=== PATIENT | male | born 1940 | race Caucasian/White ===

== ENCOUNTER 2017-03-16 18:58 | Emergency (ER) | payer MEDICARE ==
[~2017-03-16] VITALS: Ht 185.4 cm; Wt 94.3 kg
[~2017-03-16 18:58] MED LIST: AC325T PO; ACET650S15 PR; ASP81CT PO; AZIT250T81 PO; CARV3.12 PO; CEFU500T5 PO; CLOP75TA PO; ENAL10TA PO; HYDR1TAB PO; IBP800T PO; LISI-556 PO; LISI2.5T PO; LOVA40TA2 PO; PRD20T PO; SPRN25T PO
--- NOTE | 2017-03-16 19:08 | ED Fall/Injury ---
General Chief Complaint: Trauma-Non Activation Stated Complaint: DIZZINESS Nursing Triage Note: see trauma Source: patient, RN notes reviewed, EMS notes reviewed Exam Limitations: no limitations History of Present Illness Time seen by provider: 19:08 Initial Comments Actually denies dizziness to me and states he just got his feet tangled up getting up from a chair and wound up falling. Apparently landed on his right hip. Didn't want to come in but family forced him to. States he didn't hit his head and has no head or neck pain. Occurred: this evening Severity: mild Injuries/Pain Location: lower extremity (right hip) Context: tripped Loss of Consciousness: no loss of consciousness Modifying Factors: Improves With Other (none) Associated Symptoms (Fall): Denies Symptoms Allergies and Home Medications Allergies Coded Allergies: NKANo Known Allergies (Unverified Allergy, Mild, 02/11/10) Home Medications Aspirin 81 Mg Chew, 81 MG PO DAILY, (Reported) Carvedilol 3.125 Mg Tablet, 3.125 MG PO BID, (Reported) Lisinopril 5 Mg Tablet, 5 MG PO DAILY, (Reported) LAST FILLED 03/01/16 #180 ; PATIENT TO BE TAKING 2 (5 MG) TABLETS DAILY PER BOTTLE INSTRUCTIONS Meloxicam 7.5 Mg Tablet, 7.5 MG PO DAILY PRN, #30 Ref 0 Prescribed by: DEEPALI TIM on 03/16/171940 Constitutional: see HPI Musculoskeletal: see HPI, other (mild right hip pain) All Other Systems Reviewed Negative Unless Noted: Yes (Negative excepted noted.) Past Axqanfl-Ynyjmc-Indhjm Hx Patient Social History Alcohol Use: Denies Use Recreational Drug Use: No Smoking Status: Former Smoker Type Used: Smokeless Tobacco Recent Foreign Travel: No Contact w/Someone Who Travel: No Recent Infectious Disease Expo: No Recent Hopitalizations: No Immunizations Up To Date Tetanus Booster (TDap): Less than 5yrs Seasonal Allergies Seasonal Allergies: No Surgeries HX Surgeries: Yes (metal plate in head) Surgeries: Coronary Stent, Orthopedic, Pacemaker Respiratory Hx Respiratory Disorders: Yes Respiratory Disorders: Asthma, Chronic Bronchitis Cardiovascular Hx Cardiac Disorders: Yes (pacemaker) Cardiac Disorders: Coronary Artery Disease, Heart Attack, Hypertension Neurological Hx Neurological Disorders: Yes Neurological Disorders: Traumatic Brain Injury Reproductive System Hx Reproductive Disorders: No Genitourinary Hx Genitourinary Disorders: No Gastrointestinal Hx Gastrointestinal Disorders: No Musculoskeletal Hx Musculoskeletal Disorders: Yes (cellulitis to ced feet) Endocrine Hx Endocrine Disorders: Yes ("BORDERLINE DIABETIC") HEENT HX ENT Disorders: Yes Loss of Vision: Left Cancer Hx Cancer: No Psychosocial Hx Psychiatric Problems: No Integumentary HX Skin/Integumentary Disorder: No Blood Transfusions Hx Blood Disorders: No Family Medical History Significant Family History: No Pertinent Family Hx Family Medial History: Diabetes mellitus DAUGHTER FH: COPD (chronic obstructive pulmonary disease) DAUGHTER FH: alcohol abuse DAUGHTER SON Hypertension DAUGHTER Seizure disorder DAUGHTER Substance abuse DAUGHTER SON Physical Exam Vital Signs Vital Sign - Last 12Hours 03/16/17 19:01 Temp 98.2 Pulse 58 Resp 20 B/P (MAP) 133/87 Pulse Ox 98 O2 Delivery Room Air Capillary Refill : Less Than 3 Seconds General Appearance: WD/WN, no apparent distress HEENT: normal ENT inspection Neck: normal inspection Cardiovascular: regular rate, rhythm, bradycardia Respiratory: no respiratory distress Rectal: deferred Back: normal inspection Extremities: other (mild palpable tenderness over patient's right greater trochanter; no RLE shortening or external rotation.) Neurologic/Psychiatric: no motor/sensory deficits, alert, normal mood/affect, oriented x 3 Skin: warm/dry Progress/Results/Core Measures Results/Orders My Orders Orders - DEEPALI TIM DO Hip, Right, 2 Views (03/16/17 19:05) Pelvis (03/16/17 19:05) Vital Signs/I&O Vital Sign - Last 12Hours 03/16/17 03/16/17 19:01 20:09 Temp 98.2 Pulse 58 56 Resp 20 16 B/P (MAP) 133/87 Pulse Ox 98 95 O2 Delivery Room Air Blood Pressure Mean: 102 Diagnostic Imaging Diagonstic Imaging: Xray Plain Films/CT/US/NM/MRI: pelvis (nothing acute per radiologist), hip Departure Impression Impression: Primary Impression: Contusion, hip Additional Impression: Fall Disposition: 01 HOME, SELF-CARE Condition: Stable Departure-Patient Inst. Decision time for Depature: 19:39 Referrals: [facility] (PCP/Family) Primary Care Physician Patient Instructions: Contusion (DC) Scripts Meloxicam (Mobic) 7.5 Mg Tablet 7.5 MG PO DAILY PRN for hip pain, #30 TAB 0 Refills Prov: DEEPALI TIM DO 03/16/17 DEEPALI TIM DO Mar 16, 2017 19:08
--- NOTE | 2017-03-16 19:21 | Diagnostic Imaging Report ---
INDICATION: Fall. Right hip pain. FINDINGS: Pelvis is intact with mild degenerative change at the SI joint. Femoral heads are in normal articulation bilaterally. Joint spaces show minimal degenerative disease. There are no fractures demonstrated. Pubic rami appear normal. IMPRESSION: Mild degenerative changes with no acute abnormalities. Dictated by: Dictated on workstation # [id number]
--- NOTE | 2017-03-16 19:22 | Diagnostic Imaging Report ---
INDICATION: Fall with right hip pain. EXAMINATION: Two views of the right hip were obtained. FINDINGS: Femoral head is in normal articulation with the acetabulum. Articulating surfaces are smooth. Joint spaces are well preserved. Mild subcortical cystic change noted along the acetabulum. No fractures. IMPRESSION: Mild degenerative changes with no acute abnormalities. Dictated by: Dictated on workstation # [id number]
[2017-03-16] MEDS ORDERED: MELO-170 PO (19:41)
[2017-03-16 20:09] VITALS: BP 128/62
== END 2017-03-16 20:09 | disposition home or self-care (01) ==
LOC: EDUNIT# 18:58 → ER 18:59
DX: S70.01XA Contusion of right hip, initial encounter (principal); R42 Dizziness and giddiness; I10 Essential (primary) hypertension; I25.10 Atherosclerotic heart disease of native coronary artery without angina pectoris; Z79.82 Long term (current) use of aspirin; Z79.899 Other long term (current) drug therapy; Z87.891 Personal history of nicotine dependence; Z95.5 Presence of coronary angioplasty implant and graft; Z95.0 Presence of cardiac pacemaker; W01.0XXA Fall on same level from slipping, tripping and stumbling without subsequent striking against object, initial encounter; Y92.009 Unspecified place in unspecified non-institutional (private) residence as the place of occurrence of the external cause; Y99.8 Other external cause status
CPT/HCPCS: 72170; 73502; 99283

== ENCOUNTER 2018-02-01 00:03 | Observation (INO) | payer MEDICARE ==
[~2018-02-01] VITALS: Ht 185.4 cm; Wt 78.8 kg
[2018-02-01] VITALS (7 sets, daily range): BP systolic 92–126; BP diastolic 53–72
[~2018-02-01 00:03] MED LIST changes: +MELO-170 PO
[2018-02-01] MEDS ORDERED: CLOPIDOGREL 300 MG (PLAVIX) TABLET PO STA (00:28)
[2018-02-01] MEDS ORDERED: ASPIRIN 81 MG CHEW (CHILDREN'S ASA) PO STA (00:28)
--- NOTE | 2018-02-01 00:36 | ED Neurological Problem ---
General Chief Complaint: Trauma-Non Activation Stated Complaint: CAN'T WALK,LEFT LEG WON'T MOVE,FALL Nursing Triage Note: FALL FROM SHOWER CHAIR. Nursing Sepsis Screen: No Definite Risk Source: patient, family Exam Limitations: clinical condition History of Present Illness Date Seen by Provider: Feb 01, 2018 Time Seen by Provider: 00:27 Initial Comments Patient presents to the ER with family and a chief complaint that he has had left-sided weakness this since 9:00 this morning. He is not had any energy to get up and walk although he at baseline typically walks using a 4 post cane. He does not have a history of stroke but he does have a pacemaker. He has a metal plate in his head from trauma many years ago. The family had troubles with him in the shower chair tonight and he fell off the shower chair but says he is not having any pain anywhere did not strike his head and did not lose consciousness. He is on aspirin and some other heart medicine twice a day. Family also notes his left eye has some mattering like an infection. Today's for stated notice that. Nursing reports the patient was able to transfer from the wheelchair to bed with only minimal assistance. Family does not endorse any facial asymmetry however they do feel that his speech is a little bit off his baseline. He has dementia and lives with his nephew and niece. Location Injury Occurred: HOME Allergies and Home Medications Allergies Coded Allergies: Shireen Known Allergies (Unverified Allergy, Mild, 02/11/10) Home Medications Aspirin 81 Mg Chew, 81 MG PO DAILY, (Reported) Carvedilol 3.125 Mg Tablet, 3.125 MG PO BID, (Reported) Lisinopril 5 Mg Tablet, 5 MG PO DAILY, (Reported) LAST FILLED 03/01/16 #180 ; PATIENT TO BE TAKING 2 (5 MG) TABLETS DAILY PER BOTTLE INSTRUCTIONS Meloxicam 7.5 Mg Tablet, 7.5 MG PO DAILY PRN Prescribed by: DEEPALI TIM on 03/16/171940 Patient Home Medication List Home Medication List Reviewed: Yes Constitutional: No chills, No diaphoresis, No fever, No malaise Eyes: Denies Blindness, Denies Blurred Vision, Drainage (left eye), Denies Foreign Body Sensation, Denies Inflammation, Denies Pain, Denies Photophobia Ears, Nose, Mouth, Throat: denies ear pain, denies ear discharge Respiratory: cough, No phlegm, No short of breath, No wheezing Cardiovascular: No chest pain, edema (at baseline), No Hx of Intervention, No palpitations, No syncope, No vascular heart diseas Gastrointestinal: No abdominal pain, No constipation, No diarrhea, No nausea Genitourinary: No discharge, No dysuria Musculoskeletal: No back pain, No joint pain Skin: No pruritus, No rash Psychiatric/Neurological: Cognitive Dysfunction (dementia), Denies Headache, Denies Numbness Past Lezojsg-Avzhen-Kadogw Hx Patient Social History Alcohol Use: Denies Use Recreational Drug Use: No Smoking Status: Former Smoker Type Used: Smokeless Tobacco Former Smoker, Quit: Sep 11, 1996 2nd Hand Smoke Exposure: Yes Recent Foreign Travel: No Contact w/Someone Who Travel: No Recent Infectious Disease Expo: No Recent Hopitalizations: No Immunizations Up To Date Tetanus Booster (TDap): Less than 5yrs Seasonal Allergies Seasonal Allergies: No Surgeries History of Surgeries: Yes (metal plate in head) Surgeries: Coronary Stent, Orthopedic, Pacemaker Respiratory History of Respiratory Disorde: Yes Respiratory Disorders: Asthma, Chronic Bronchitis Cardiovascular History of Cardiac Disorders: Yes (pacemaker) Cardiac Disorders: Coronary Artery Disease, Heart Attack, Hypertension Neurological History of Neurological Disord: Yes Neurological Disorders: Traumatic Brain Injury Reproductive System Hx Reproductive Disorders: No Genitourinary History of Genitourinary Disor: No Gastrointestinal History of Gastrointestinal Di: No Musculoskeletal History of Musculoskeletal Dis: Yes (cellulitis to ced feet) Musculoskeletal Disorders: Arthritis Endocrine History of Endocrine Disorders: No HEENT History of HEENT Disorders: No Loss of Vision: Left Cancer History of Cancer: No Psychosocial History of Psychiatric Problem: No Integumentary History of Skin or Integumenta: No Blood Transfusions History of Blood Disorders: No Family Medical History Significant Family History: No Pertinent Family Hx Family Medial History: Diabetes mellitus DAUGHTER FH: COPD (chronic obstructive pulmonary disease) DAUGHTER FH: alcohol abuse DAUGHTER SON Hypertension DAUGHTER Seizure disorder DAUGHTER Substance abuse DAUGHTER SON Physical Exam Vital Signs Vital Signs - First Documented 02/01/18 00:19 Temp 98.8 Pulse 83 Resp 16 B/P (MAP) 114/78 (90) Pulse Ox 93 O2 Delivery Room Air Capillary Refill : Less Than 3 Seconds General Appearance: WD/WN, no apparent distress HEENT: PERRL/EOMI, TMs normal, pharynx normal (oral mucosa is moist. Edentulous ), other (mild conjunctival injection and left eye mattering) Neck: non-tender, full range of motion, supple, normal inspection Respiratory: chest non-tender, lungs clear, normal breath sounds, no respiratory distress, no accessory muscle use Cardiovascular: normal peripheral pulses, regular rate, rhythm, other ( bilateral lower extremities with 1+ pitting edema) Peripheral Pulses: 2+ Radial Pulses (R), 2+ Radial Pulses (L) Gastrointestinal: normal bowel sounds, non tender, soft, no organomegaly Back: normal inspection, no vertebral tenderness Extremities: normal range of motion, non-tender, normal capillary refill, pedal edema Neurologic/Psychiatric: alert, normal mood/affect, 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, No facial droop, motor weakness (left lower leg has 4 out of 5 motor strength; left upper extremity symmetric with right upper extremity 5 out of 5 motor strength), No sensory deficit, other (oriented to person and place) Crainal Nerves: normal hearing, PERRL, abnormal speech (very subtle slurring), No facial asymmetry, No facial droop, No facial weakness Coordination/Gait: No ABN nose to finger (R), ABN nose to finger (L) Motor/Sensory: no sensory deficit, no pronator drift Skin: normal color, warm/dry Stroke Onset of Symptoms Date of Onset of Symptoms: Feb 01, 2018 Time of Symptom Onset: 09:00 Onset of Symptoms: Yes Symptoms onset unknown: No NIH Stroke Scale Assessment Select: Initial Level of Consciousness: 0=Alert (0), Level of Consciousness- Questions: 1=Answers one question baseline dementia. (1), LOC Commands: 0= Performs both tasks (0), Gaze: Normal (0), Visual Garcia: 0=No visual loss (0), Facial Movement (Facial Paresis): 0=Normal symmetrical mnt (0), Motor Function- Arms Right: 0=No drift (0), Motor Function-Arms Left: 0=No drift (0), Motor Function-Legs Right: 0=No drift (0), Motor Function-Legs Left: 0=No drift (0), Limb Ataxia: 0=Absent (0), Sensory: 0=Normal:no loss (0), Best Language: 0=No aphasia (0), Dysarthria: 1=Mild to moderate loss (1), Extinction & Inattention: 0=No abnormality (0), Total: 2 Stroke Thrombolytic Exclusion Age 18 or Over: Yes Acute intenal hemorrhage: No History of CVA: No Uncontrolled Coagulation Defec: No Intracranial Hemorrhage: No Severe Hypertension: No GI or Bleed: No Subarachnoid Hemorrhage: No Intracranial Neoplasm/Aneurysm: No Oral Anticoagulants: No Surgery or Trauma: No Puncture of Non-Compressible V: No Recent CPR: No Diabetic Hemorrhagic Retinopat: No Organ Biopsy: No Recent Obstetric Delivery: No Glucose: No Significant Hepatic Dysfunctio: No NIH Stoke Scale >22: No Bacterial Endocarditis: No Pericarditis: No Improving Symptoms: No Platelets: No TPA Contraindication: Yes IV - TPa Received IV - TPa Procedure Performed?: No Progress/Results/Core Measures Results/Orders Lab Results Laboratory Tests Test 02/01/18 00:35 02/01/18 00:55 02/01/18 01:10 Range/Units White Blood Count 8.2 4.3-11.0 10^3/uL Red Blood Count 4.33 L 4.35-5.85 10^6/uL Hemoglobin 14.2 13.3-17.7 G/DL Hematocrit 41 40-54 % Mean Corpuscular Volume 94 80-99 FL Mean Corpuscular Hemoglobin 33 25-34 PG Mean Corpuscular Hemoglobin Concent 35 32-36 G/DL Red Cell Distribution Width 12.7 10.0-14.5 % Platelet Count 128 L 130-400 10^3/uL Mean Platelet Volume 11.7 H 7.4-10.4 FL Neutrophils (%) (Auto) 67 42-75 % Lymphocytes (%) (Auto) 19 12-44 % Monocytes (%) (Auto) 13 H 0-12 % Eosinophils (%) (Auto) 2 0-10 % Basophils (%) (Auto) 0 0-10 % Neutrophils # (Auto) 5.4 1.8-7.8 X 10^3 Lymphocytes # (Auto) 1.5 1.0-4.0 X 10^3 Monocytes # (Auto) 1.0 0.0-1.0 X 10^3 Eosinophils # (Auto) 0.1 0.0-0.3 10^3/uL Basophils # (Auto) 0.0 0.0-0.1 10^3/uL Prothrombin Time 14.3 12.2-14.7 SEC INR Comment 1.1 0.8-1.4 Activated Partial Thromboplast Time 32 24-35 SEC D-Dimer 0.96 H 0.00-0.49 UG/ML Sodium Level 132 L 135-145 MMOL/L Potassium Level 3.8 3.6-5.0 MMOL/L Chloride Level 102 98-107 MMOL/L Carbon Dioxide Level 21 21-32 MMOL/L Anion Gap 9 5-14 MMOL/L Blood Urea Nitrogen 23 H 7-18 MG/DL Creatinine 2.08 H 0.60-1.30 MG/DL Estimat Glomerular Filtration Rate 31 BUN/Creatinine Ratio 11 Glucose Level 106 H 70-105 MG/DL Calcium Level 8.8 8.5-10.1 MG/DL Magnesium Level 1.9 1.8-2.4 MG/DL Total Bilirubin 1.3 H 0.1-1.0 MG/DL Aspartate Amino Transf (AST/SGOT) 23 5-34 U/L Alanine Aminotransferase (ALT/SGPT) 17 0-55 U/L Alkaline Phosphatase 114 40-136 U/L Troponin I < 0.30 <0.30 NG/ML B-Type Natriuretic Peptide 213.3 H <100.0 PG/ML Total Protein 6.6 6.4-8.2 GM/DL Albumin 3.6 3.2-4.5 GM/DL Glucometer 97 70-110 MG/DL Urine Color ANTHONY H Urine Clarity CLEAR Urine pH 6 5-9 Urine Specific Hatch 1.020 1.016-1.022 Urine Protein 2+ H NEGATIVE Urine Glucose (UA) 2+ H NEGATIVE Urine Ketones NEGATIVE NEGATIVE Urine Nitrite NEGATIVE NEGATIVE Urine Bilirubin NEGATIVE NEGATIVE Urine Urobilinogen 1 NORMAL MG/DL Urine Leukocyte Esterase 1+ H NEGATIVE Urine RBC (Auto) 2+ H NEGATIVE Urine RBC 2-5 H /HPF Urine WBC RARE /HPF Urine Squamous Epithelial Cells 2-5 /HPF Urine Crystals NONE /LPF Urine Bacteria TRACE /HPF Urine Casts NONE /LPF Urine Mucus SMALL H /LPF Urine Culture Indicated NO My Orders Orders - ORA LANCE Cbc With Automated Diff (02/01/18 00:28) Protime With Inr (02/01/18 00:28) Partial Thromboplastin Time (02/01/18 00:28) Comprehensive Metabolic Panel (02/01/18 00:28) Fibrin Degradation Products (02/01/18) Troponin I (02/01/18) Ua Culture If Indicated (02/01/18) Chest 1 View, Ap/Pa Only (02/01/18) Ekg Tracing (02/01/18) Saline Lock/Iv-Start (02/01/18) Saline Lock/Iv-Start (02/01/18) Vital Signs Stroke Patient Q15M (02/01/18) Ct Head Wo-R/O Stroke (02/01/18) O2 (02/01/18) Intake & Output 06,14,22 (02/01/18) Aspirin Chewable Tablet (Baby Aspirin Ch (02/01/18) Clopidogrel Tablet (Plavix Tablet) (02/01/18) Monitor-Rhythm Ecg Trace Only (02/01/18) Dysphagia Screening Tool (02/01/18) BNP (02/01/18) Magnesium (02/01/18) Vital Signs/I&O Vital Sign - Last 12Hours 02/01/18 02/01/18 02/01/18 00:19 00:56 01:19 Temp 98.8 Pulse 83 74 Resp 16 24 B/P (MAP) 114/78 (90) 126/72 Pulse Ox 93 93 96 O2 Delivery Room Air Room Air Blood Pressure Mean: 90 Progress Note : Time: 00:43 Progress Note NIH score of 2 however 1 point is given for his not knowing month and at baseline he probably did not answer this question according to family. The 1 point remaining was given for the family feels he has some slurring of speech. He does have some cerebellar symptoms with his finger to nose being very difficult of the left arm. We'll get a CT scan however he is well outside the window for TPA. His eye mattering will need a topical antibiotic. He could probably stay overnight there is no intervention to be done such as clot retrieval with his last well-known time being almost 14 hours ago. We'll talk about medical management as well as physical therapy. Because of the plate in his head an MRI is not advisable. ECG Initial ECG Impression Date: Feb 01, 2018 Initial ECG Impression Time: 00:38 Initial ECG Rate: 79 Initial ECG Rhythm: Normal Sinus Initial ECG Intervals: Normal Initial ECG Impression: Nonspecific Changes (PACs; old lateral infarct) Initial ECG Comparisson: No Previous ECG Available Comment No ST segment elevation or depression. Diagnostic Imaging Diagonstic Imaging: Xray Plain Films/CT/US/NM/MRI: chest Comments Flattened diaphragms. No definite infiltrate. No pleural effusion. Reviewed: Reviewed by Me Diagonstic Imaging: CT Plain Films/CT/US/NM/MRI: head Comments Stat read no CT evidence of an acute intracranial process. Chronic changes that are stable from prior CT August 2016. Motion artifact. Reviewed: Reviewed by Me Departure Impression Impression: Primary Impression: TIA (transient ischemic attack) Qualified Codes: G45.9 - Transient cerebral ischemic attack, unspecified Additional Impression: Conjunctivitis Qualified Codes: H10.32 - Unspecified acute conjunctivitis, left eye Disposition: ADMITTED INPATIENT Condition: Stable Admissions Decision to Admit Reason: Admit from ER (General) Decision to Admit/Date: Feb 01, 2018 Time/Decision to Admit Time: 00:47 Departure-Patient Inst. Referrals: [facility] (PCP/Family) Primary Care Physician ORA LANCE Feb 01, 2018 00:36
[2018-02-01 00:55] LABS: BASOPHILS % (AUTO) 0 % (0-10); EOSINOPHILS # (AUTO) 0.1 10^3/uL (0.0-0.3); EOSINOPHILS % (AUTO) 2 % (0-10); HEMATOCRIT 41 % (40-54); HEMOGLOBIN 14.2 G/DL (13.3-17.7); LYMPHOCYTES # (AUTO) 1.5 X 10^3 (1.0-4.0); LYMPHOCYTES % (AUTO) 19 % (12-44); MEAN CORPUSCULAR HEMOGLOBIN 33 PG (25-34); MEAN CORPUSCULAR HGB CONC 35 G/DL (32-36); MEAN CORPUSCULAR VOLUME 94 FL (80-99); MEAN PLATELET VOLUME 11.7 FL (7.4-10.4); MONOCYTES % (AUTO) 13 % (0-12); NEUTROPHILS # (AUTO) 5.4 X 10^3 (1.8-7.8); NEUTROPHILS % (AUTO) 67 % (42-75); PLATELET COUNT 128 10^3/uL (130-400); RED BLOOD COUNT 4.33 10^6/uL (4.35-5.85); RED CELL DISTRIBUTION WIDTH 12.7 % (10.0-14.5); WHITE BLOOD COUNT 8.2 10^3/uL (4.3-11.0)
[2018-02-01 01:14] LABS: INR 1.1 (0.8-1.4); PROTHROMBIN TIME PATIENT 14.3 SEC (12.2-14.7)
[2018-02-01 01:17] LABS: FIBRIN DEGRADATION PRODUCTS 0.96 UG/ML (0.00-0.49)
[2018-02-01 01:22] LABS: ALANINE AMINOTRANSFERASE 17 U/L (0-55); ALBUMIN 3.6 GM/DL (3.2-4.5); ALKALINE PHOSPHATASE 114 U/L (40-136); BILIRUBIN,TOTAL 1.3 MG/DL (0.1-1.0); BUN/CREATININE RATIO 11; CALCIUM 8.8 MG/DL (8.5-10.1); CARBON DIOXIDE 21 MMOL/L (21-32); CHLORIDE 102 MMOL/L (98-107); CREATININE SERUM 2.08 MG/DL (0.60-1.30); GFR ESTIMATED 31; GLUCOSE 106 MG/DL (70-105); MAGNESIUM 1.9 MG/DL (1.8-2.4); POTASSIUM 3.8 MMOL/L (3.6-5.0); SODIUM 132 MMOL/L (135-145); TOTAL PROTEIN 6.6 GM/DL (6.4-8.2)
[2018-02-01 01:26] LABS: BILIRUBIN,URINE NEGATIVE (NEGATIVE); CLARITY,URINE CLEAR; COLOR,URINE AMBER; GLUCOSE, URINE (UA) 2+ (NEGATIVE); KETONES,URINE NEGATIVE (NEGATIVE); LEUKOCYTE ESTERASE ,URINE 1+ (NEGATIVE); NITRITE,URINE NEGATIVE (NEGATIVE); PH,URINE 6 (5-9); PROTEIN,URINE 2+ (NEGATIVE); UROBILINOGEN,URINE 1 MG/DL (NORMAL)
[2018-02-01 01:41] LABS: BACTERIA,URINE TRACE /HPF; WBC,URINE RARE /HPF
[2018-02-01] MEDS ORDERED: ONDANSETRON 4 MG/2 ML (SDV) Z0FRAN IV PRN (03:00)
[2018-02-01] MEDS ORDERED: ACETAMINOPHEN 500 MG TAB (TYLENOL) PO PRN (03:00)
--- NOTE | 2018-02-01 06:39 | Diagnostic Imaging Report ---
Exam: CT head without contrast. DATE: 02/01/2018. COMPARISON: 08/28/2016. INDICATION: 77-year-old male, left-sided weakness, cough. FINDINGS: There are postoperative changes of the right frontal bone. There is expansion and loss of cortical bone in the region of the left frontal sinus with complete opacification of the left frontal sinus which is nonspecific. This is an unchanged appearance compared to prior CT head 08/28/2016. There is also complete opacification in left ethmoidal air cells with thinning of the overlying bone. There are changes of encephalomalacia in the left anterior and inferior aspect of the frontal lobe and in the right cerebellar hemisphere. Changes of encephalomalacia in the right cerebellar hemisphere are an interval change since prior CT. There is proportional prominence of the ventricles and CSF spaces compatible with moderate cerebral volume loss. There is no identified abnormal extra-axial fluid collection. There are areas of very low attenuation in the right frontal lobe which may relate to encephalomalacia with adjacent low attenuation in the white matter likely reflecting prominent gliosis. There are areas of low attenuation in general in the periventricular and subcortical white matter which most likely reflect changes of chronic small vessel ischemic disease. There is no evidence of acute intracranial hemorrhage. There is no mass effect or midline shift. IMPRESSION: 1. No CT apparent interval acute intracranial abnormality. 2. Changes of encephalomalacia in the left frontal lobe, right frontal lobe, and right cerebellum. Encephalomalacia in the cerebellum is an interval finding since 08/28/2016. 3. Moderate cerebral volume loss with changes of chronic small vessel ischemic disease. 4. Redemonstrated opacification within the left frontal sinus and left ethmoidal air cells which is expansile and is associated with cortical bone thinning and bone loss. Dictated by: Dictated on workstation # [id number]
[2018-02-01 06:47] LABS: BASOPHILS % (AUTO) 0 % (0-10); EOSINOPHILS # (AUTO) 0.1 10^3/uL (0.0-0.3); EOSINOPHILS % (AUTO) 1 % (0-10); HEMATOCRIT 39 % (40-54); HEMOGLOBIN 13.7 G/DL (13.3-17.7); LYMPHOCYTES # (AUTO) 2.2 X 10^3 (1.0-4.0); LYMPHOCYTES % (AUTO) 30 % (12-44); MEAN CORPUSCULAR HEMOGLOBIN 33 PG (25-34); MEAN CORPUSCULAR HGB CONC 35 G/DL (32-36); MEAN CORPUSCULAR VOLUME 94 FL (80-99); MEAN PLATELET VOLUME 11.7 FL (7.4-10.4); MONOCYTES # (AUTO) 1.1 X 10^3 (0.0-1.0); MONOCYTES % (AUTO) 15 % (0-12); NEUTROPHILS # (AUTO) 3.9 X 10^3 (1.8-7.8); NEUTROPHILS % (AUTO) 53 % (42-75); PLATELET COUNT 113 10^3/uL (130-400); RED BLOOD COUNT 4.14 10^6/uL (4.35-5.85); RED CELL DISTRIBUTION WIDTH 12.6 % (10.0-14.5); WHITE BLOOD COUNT 7.2 10^3/uL (4.3-11.0)
[2018-02-01 06:59] LABS: CALCIUM 8.7 MG/DL (8.5-10.1); CREATININE SERUM 2.05 MG/DL (0.60-1.30); POTASSIUM 3.5 MMOL/L (3.6-5.0)
--- NOTE | 2018-02-01 07:35 | Diagnostic Imaging Report ---
EXAMINATION: Chest radiograph, portable AP view. DATE: 02/01/2018 at 0108 hours. INDICATION: 77-year-old male, left-sided weakness, cough. COMPARISON: 08/28/2016. FINDINGS: There is a left-sided cardiac assist device with lead. Stable overall appearance of the cardiomediastinal silhouette. There is no identified pneumothorax. There is no large pleural effusion. There is hazy opacification in the right upper lobe. There are bilateral interstitial opacities. Overall aeration of the lungs appears fairly similar to the comparison exam although the right upper lobe opacities do appear slightly more prominent. IMPRESSION: 1. Hazy opacities projecting over the right upper lobe which appear slightly more prominent since comparison exam and potentially could relate to infiltrate. This may be more optimally assessed with CT. 2. Bilateral predominantly interstitial opacities which are unchanged since comparison exam and most likely reflect chronic lung changes. Dictated by: Dictated on workstation # [id number]
[2018-02-01] MEDS: ASPIRIN 81 MG CHEW (CHILDREN'S ASA) PO SCH (08:27)
[2018-02-01] MEDS ORDERED: ASPI-983 PO (09:54)
[2018-02-01] MEDS ORDERED: CARV3.122 PO (09:54)
--- NOTE | 2018-02-01 10:47 | Physical Therapy Evaluation ---
PT Evaluation-General Medical Diagnosis Admission Date Feb 01, 2018 at 02:00 Medical Diagnosis: TIA Onset Date: Feb 01, 2018 Therapy Diagnosis Therapy Diagnosis: impaired gait and balance Height/Weight Height (Feet): 6 Height (Inches): 1.00 Weight (Pounds): 173 Weight (Ounces): 12.8 Precautions Precautions/Isolations: Fall Prevention, Standard Precautions Weight Bear Status Weight Bearing/Tolerated Weight Bearing/Tolerated Referral Physician: Betsy Alanis MD Reason for Referral: Evaluation/Treatment Medical History Pertinent Medical History: Fractures, HTN, IN, Smoking, TBI Additional Medical History metal plate in head from injury 1975, asthma, bronchitis Reviewed History: Yes Social History Home: Single Level Current Living Status: Children Prior/Core FIM Prior Level of Function Functional [place] Measure 0=Not Assessed/NA 4=Minimal Assistance 1=Total Assistance 5=Supervision or Setup 2=Maximal Assistance 6=Modified [place] 3=Moderate Assistance 7=Complete [place] Bed Mobility: 6 Transfers (B,C,W/C) (FIM): 6 Gait: 6 uses a quad cane, reports frequent falls PT Evaluation-Current Subjective Pt and report that he is not very active at home and has had long standing weakness on the (L). Yesterday he fell off of a shower chair onto the floor. Family brought him to the ER for fear of stroke, noting (L) side weakness and some slurred speech. Imaging does not show signs of acute stroke. Pt admitted for observation. Objective Patient Orientation: Normal For Age Problem Solving: Fair ROM/Strength ROM Upper Extremities WFL ROM Lower Extremities WFL Strength Upper Extremities 4/5 Strength Lower Extremities gross 4/5 (B) with right stronger than the left Sensory Vision: Functional Hearing: Functional Transfers Functional Republic Measure 0=Not Assessed/NA 4=Minimal Assistance 1=Total Assistance 5=Supervision or Setup 2=Maximal Assistance 6=Modified [place] 3=Moderate Assistance 7=Complete [place] Transfers (B, C, W/C) (FIM): 4 Scootin Supine to/from Sit: 5 Sit to/from Stand: 5 needs tactile cuing for sequencing the LEs in and out of bed. Gait Mode of Locomotion: Walk Anticipated Mode of Locomotion: Walk Gait (FIM): 4 Distance (FIM): 3=150 ft Distance: 150 Gait Level of Assist: 4 Gait Persons Needed: 1 Gait Assistive Device: FWW Comments/Gait Description Needs minimal assist to guide the walker around objects. Patient has poor attention to safety surroundings and is at risk when distracted. Balance Sitting Static: Good Sitting Dynamic: Good Standing Static: Fair Standing Dynamic: Fair Assessment/Needs Pt is a fall risk due to old neurological injury affecting coordination and reaction time of the (L) LE. He responded well to verbal and tactile cues. He had poor managment of a FWW. Pt will benefit from further assessment of gait and balance using a quad cane. His reports that he looks almost back to his normal walking abilities. Rehab Potential: Fair PT Short Term Goals Short Term Goals Time Frame: Feb 04, 2018 PT Mcc Goals Mcc Goals PT Carpenter Apprentice Goals Time Frame: Feb 04, 2018 Transfers (B,C,W/C) (FIM): 5 Gait (FIM): 5 Gait distance (FIM): 3=150 ft Distance: 150 Gait Level of Assist: 5 Gait Assistive Device: Cane Small Base Quad PT Plan Problem List Problem List: Activity Tolerance, Balance, Gait Treatment/Plan Treatment Plan: Continue Plan of Care Treatment Plan: Gait, Safety Treatment Duration: Feb 08, 2018 Frequency: 6 times per week Estimated Hrs Per Day: .25 hour per day Patient and/or Family Agrees t: Yes Safety Risks/Education Patient Education: Gait Training, Safety Issues Teaching Recipient: Patient, Family Teaching Methods: Demonstration, Discussion Discharge Recommendations Therapy D/C Recommendations: Home w/ Family Support Barriers to Progress old neurological impairment left side Target Placement home with family support Time/GCodes Time In: 1030 Time Out: 1055 Total Billed Treatment Time: 25 Total Billed Treatment visit, eval moderate complexity 25 min G Codes Necessary: Yes PT/OT Therapy GCodes Therapy Functional Limitation: Physical Therapy Test(s)/Tool used to determine: FIM Functional Limitation-Current Charge Code: MOBCUR Modifier: CJ Functional Limitation-Goal Charge Code: MOBGOAL Modifier: ANGIE JANSEN PT Feb 01, 2018 10:47
--- NOTE | 2018-02-01 15:51 | Consultation-Cardiology ---
HPI-Cardiology Cardiology Consultation: Date of Consultation 02/01/18 Time Seen by Provider: 15:50 Date of Admission Attending Physician Betsy Tian MD Admitting Physician [facility] Consulting Physician ROSA M POOLE MD, MA, FACP, FACC, [facility] [place], CCDS HPI: Chief Complaint: Reason for consultation: H/o CHF 77 yo man who, apparently, was admitted to Dr Tian for eval and treatment of L-sided weakness. He himself does not report any localized weakness. Has gen weakness. Does not provide much history. and a daughter are by his bedside. History is mostly obtained from his daughter He has chronic gen weakness and poor balance and is prone to falls. states he took a soft fall this am. Doesn't know if he was weak on one side. He has chronic bilat leg swelling, more on the R, treated with daytime compression stockings that he has not been using lately. He does not report cp or palp or syncope. Refuses to answer most questions Daughter states that he lives with his granddaughter. It is unclear if his oral intake has been good. He is mostly non ambulatory. Apparently, has not lost much wgt lately. He does not answer if he has a good appetite. says he eats good, but the person they live with sometimes does not cook anything for them. He has chronic body pains and gen weakness Review of Systems-Cardiology Review of Systems Constitutional: weight gain, other (He does not cooperate with a review of systems. Whatever we could learn from him and his fam is described above under HPI) WVS-Isceiq-Jnlqms Hx Patient Social History Alcohol Use: Denies Use Recreational Drug Use: No Smoking Status: Former Smoker Type Used: Smokeless Tobacco 2nd Hand Smoke Exposure: Yes Recent Foreign Travel: No Recent Infectious Disease Expo: No Hospitalization with Isolation: Denies Physical Abuse Screen: No Sexual Abuse: No Immunizations Up To Date Tetanus Booster (TDap): Less than 5yrs Date of Influenza Vaccine: Sep 03, 2017 Past Medical History PMH As described under Assessment. Family Medical History Family History: Diabetes mellitus DAUGHTER FH: COPD (chronic obstructive pulmonary disease) DAUGHTER FH: alcohol abuse DAUGHTER SON Hypertension DAUGHTER Seizure disorder DAUGHTER Substance abuse DAUGHTER SON Allergies and Home Medications Allergies Coded Allergies: NKANo Known Allergies (Unverified Allergy, Mild, 02/11/10) Home Medications Aspirin 81 Mg Tablet., 81 MG PO DAILY, (Reported) Carvedilol 3.125 Mg Tablet, 3.125 MG PO BID, (Reported) Patient Home Medication List Home Medication List Reviewed: Yes Physical Exam-Cardiology Physical Exam Vital Signs/I&O Vital Sign - Last 12Hours 02/01/18 02/01/18 02/01/18 02/01/18 07:00 08:00 09:00 12:00 Temp 98.1 97.4 Pulse 56 70 59 Resp 18 18 B/P (MAP) 122/68 (86) 98/57 (71) Pulse Ox 97 97 91 O2 Delivery Room Air Room Air Room Air 02/01/18 13:00 Pulse 59 Capillary Refill : Less Than 3 Seconds Constitutional: other (Lying hunched over on the L side in the bed. Very uncooperative with exam. Appear somewhat thin and seems to suffer from dementia or poor memory) HEENT: other (He did open eyes after multiple requests; pupils appear round and reactive; there appears to be some entropion of the upper eyelid on the L; jaws appear edentulous, but he doesn't open his mouth for a full exam) Neck: No carotid bruit, carotid pulses are 2 + bilaterally, with good upstrokes Respiratory: No accessory muscle use, other (Lungs appear to have good air entry and are resonant to percussion) Cardiovascular: regular rate-rhythm, S1 and S2, systolic murmur (2/6 UGO at card base) Gastrointestinal: No tender, soft, No guarding, No rebound, audible bowel sounds Extremities: No clubbing, No cyanosis, significant edema (there is bilateral leg edema, somewhat more on R (this is chronic according to the family)) Neurologic/Psychiatric: other (He does not cooperate with a neurlogic exam; does not answer questions of orientation; moves all limbs equally but doesn't cooperate with exam for power or sensations) Skin: No rash on exposed areas, No ulcerations on exposed areas Data Review Labs Laboratory Tests 02/01/18 00:35: White Blood Count 8.2, Red Blood Count 4.33L, Hemoglobin 14.2, Hematocrit 41, Mean Corpuscular Volume 94, Mean Corpuscular Hemoglobin 33, Mean Corpuscular Hemoglobin Concent 35, Red Cell Distribution Width 12.7, Platelet Count 128L, Mean Platelet Volume 11.7H, Neutrophils (%) (Auto) 67, Lymphocytes (%) (Auto) 19 , Monocytes (%) (Auto) 13H, Eosinophils (%) (Auto) 2, Basophils (%) (Auto) 0, Neutrophils # (Auto) 5.4, Lymphocytes # (Auto) 1.5, Monocytes # (Auto) 1.0, Eosinophils # (Auto) 0.1, Basophils # (Auto) 0.0, Prothrombin Time 14.3, INR Comment 1.1, Activated Partial Thromboplast Time 32, D-Dimer 0.96H, Sodium Level 132L, Potassium Level 3.8, Chloride Level 102, Carbon Dioxide Level 21, Anion Gap 9, Blood Urea Nitrogen 23H, Creatinine 2.08H, Estimat Glomerular Filtration Rate 31, BUN/Creatinine Ratio 11, Glucose Level 106H, Calcium Level 8.8, Magnesium Level 1.9, Total Bilirubin 1.3H, Aspartate Amino Transf (AST/SGOT ) 23, Alanine Aminotransferase (ALT/SGPT) 17, Alkaline Phosphatase 114, Troponin I < 0.30, B-Type Natriuretic Peptide 213.3H, Total Protein 6.6, Albumin 3.6 02/01/18 00:55: Glucometer 97 02/01/18 01:10: Urine Color AMBERH, Urine Clarity CLEAR, Urine pH 6, Urine Specific [place] 1.020, Urine Protein 2+H, Urine Glucose (UA) 2+H, Urine Ketones NEGATIVE, Urine Nitrite NEGATIVE, Urine Bilirubin NEGATIVE, Urine Urobilinogen 1, Urine Leukocyte Esterase 1+H, Urine RBC (Auto) 2+H, Urine RBC 2-5H, Urine WBC RARE, Urine Squamous Epithelial Cells 2-5, Urine Crystals NONE, Urine Bacteria TRACE, Urine Casts NONE, Urine Mucus SMALLH, Urine Culture Indicated NO 02/01/18 06:12: White Blood Count 7.2, Red Blood Count 4.14L, Hemoglobin 13.7, Hematocrit 39L, Mean Corpuscular Volume 94, Mean Corpuscular Hemoglobin 33, Mean Corpuscular Hemoglobin Concent 35, Red Cell Distribution Width 12.6, Platelet Count 113L, Mean Platelet Volume 11.7H, Neutrophils (%) (Auto) 53, Lymphocytes (%) (Auto) 30 , Monocytes (%) (Auto) 15H, Eosinophils (%) (Auto) 1, Basophils (%) (Auto) 0, Neutrophils # (Auto) 3.9, Lymphocytes # (Auto) 2.2, Monocytes # (Auto) 1.1H, Eosinophils # (Auto) 0.1, Basophils # (Auto) 0.0, Sodium Level 135, Potassium Level 3.5L, Chloride Level 105, Carbon Dioxide Level 23, Anion Gap 7, Blood Urea Nitrogen 23H, Creatinine 2.05H, Estimat Glomerular Filtration Rate 32, BUN/ Creatinine Ratio 11, Glucose Level 117H, Calcium Level 8.7 Laboratory Tests 02/01/18 00:35 02/01/18 06:12 A/P-Cardiology Assessment/Admission Diagnosis L-sided weakness, being managed by the [facility] [place]. CT head of 02/01/18 did not show apparent interval acute intracranial abnormality; there were changes of encephalomalacia in the left frontal lobe, right frontal lobe, and right cerebellum Coronary disease, history of stent to the left circumflex. Last card cath in [address] Olson: patent LCX stent, LVEF 30%. Last MPI [place] [address] Chapa: anterior and anterolateral fixed perfusion defect with LVEF 40% Ischemic cardiomyopathy with EF 40 percent, last echo in August 2014 showing dilated left ventricle with akinesia of the anterior wall, anterolateral wall, mild MR, mild TR, PA 35 mmHg Chronic systolic CHF, followed by Dr Chapa CKD 4 Not suitable for VIVIENNE-inhibitor or ARB due to CKD-4 Abnormal ECG on 02/01/18: NSR with PACs, evidence of old posterolateral GA, unchanged compared to previous ECGs Chronic bilateral leg swelling, somewhat more on the R, treated with compression stockings in the past, but patient has been noncompliant lately Probable dementia H/o hypertension H/o hyperlipidemia History of permanent pacemaker/ICD, [employer], functioning normally on last interrogation was done in [address] Meneses's H/o tobaccoism H/o mild non-obstructive carotid artery stenosis, followed by Dr Chapa Discussion and Recomendations * We recommend continuation of bb and aspirin * We recommend eval for DVT. 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
--- NOTE | 2018-02-01 21:41 | Diagnostic Imaging Report ---
INDICATION: Patient's legs have been locking up, bilateral lower extremity pain. Stroke versus TIA. FINDINGS: Bilateral lower extremity venous Doppler was obtained with color-flow Doppler, compression, augmentation and grayscale imaging. Exam demonstrates some subcutaneous edema. No DVT is identified. The distal peroneal veins were not seen on either side. The greater saphenous veins are patent. No fluid collections are present. IMPRESSION: There is some subcutaneous edema. No DVT is present. Dictated by: Dictated on workstation # [id number]
[2018-02-02 00:45] VITALS: BP 95/60
[2018-02-02 04:20] VITALS: BP 95/56
--- NOTE | 2018-02-02 07:26 | Diagnostic Imaging Report ---
PROCEDURE: US carotid duplex, bilateral. TECHNIQUE: Multiple real-time grayscale images were obtained over the carotid arteries in various projections, bilaterally. Additional duplex Doppler and color Doppler images were also obtained. INDICATION: CVA versus TIA. FINDINGS: Examination was technically difficult as the patient could not follow commands. There are no focally elevated velocities within either common carotid artery or internal carotid artery. The ICA/CCA ratio is less than one bilaterally. Neither vertebral artery was visualized. IMPRESSION: Mild to moderate bilateral carotid plaque. Spectral analysis however shows no evidence of a hemodynamically significant stenosis within either internal carotid artery. Neither vertebral artery was visualized. Parameters based on the consensus panel Tompkins-Scale and Doppler ultrasound criteria published September 2003, Radiology, Volume 229. DOPPLER (peak systolic velocity M/S Right Left CCA ICA Proximal ICA Mid ICA Distal RATIO ECA VERT Dictated by: Dictated on workstation # [id number]
[2018-02-02 08:00] VITALS: BP 83/53
--- NOTE | 2018-02-02 08:32 | H&P Pediatric ---
HPI Attending Physician Peter Aguilar MD PCP [facility] Consult Date of Admission Feb 01, 2018 at 2:00 am Home Medications Home Medications Reviewed patient Home Medication Reconciliation Form Allergies Coded Allergies: NKANo Known Allergies (Unverified Allergy, Mild, 02/11/10) PMH-Pediatrics Patient Social History Physical Abuse Screen: No Sexual Abuse: No Recent Foreign Travel: No Contact w/other who traveled: No Recent Infectious Disease Expo: No Hospitalization with Isolation: Denies 2nd Hand Smoke Exposure: Yes Immunizations Up To Date Tetanus Booster (TDap): Less than 5yrs Date of Influenza Vaccine: Sep 03, 2017 Seasonal Allergies Seasonal Allergies: No Family Medical History Significant Family History: No Pertinent Family Hx Patient History: Diabetes mellitus DAUGHTER FH: COPD (chronic obstructive pulmonary disease) DAUGHTER FH: alcohol abuse DAUGHTER SON Hypertension DAUGHTER Seizure disorder DAUGHTER Substance abuse DAUGHTER SON Physical Exam-Pediatric Physical Exam Vital Signs Vital Signs - First Documented 02/01/18 00:19 Temp 98.8 Pulse 83 Resp 16 B/P (MAP) 114/78 (90) Pulse Ox 93 O2 Delivery Room Air Capillary Refill : Less Than 3 Seconds PETER AGUILAR MD Feb 02, 2018 8:32 am
--- NOTE | 2018-02-02 08:33 | History & Physicial (CHS) ---
HPI History of Present Illness: 77YO gentleman with a history of systolic CHF, pacemaker, diabetes mellitus type 2 , and dementia presented to ER with family. Patient fell from his shower chair on night of admission. Per Dr Carrion's history (no family available while I was present), the family stated he has had increasing debility in lance past few days. There was concern that he had left sided weakness the day of admission, which played into why they brought him in to ER. There was no report of sudden onset weakness, and the patient himself is disoriented to time and place so that history is unreliable. Per chart review, he was seen in November by Silva Luque, his LINE UP WORKER. He had not seen a garment folder in [address] years ([address] Chapa), and a new consult was placed, but the patient has not yet seen him (we have no new records), and Dr Chapa's office is usually quite reliable in letting us know patients have been there). His a1c at the time was 5.x % showing control of the diabetes. He is scheduled for a follow up on February 11 labeled as "concerns." Source: RN/MD Exam Limitations: clinical condition Date seen by provider: Feb 01, 2018 Time Seen by Provider: 09:30 Attending Physician Peter Tian MD [facility] Date of Admission Feb 01, 2018 at 2:00 am Home Medications Home Medications Reviewed patient Home Medication Reconciliation Form Allergies Coded Allergies: NKANo Known Allergies (Unverified Allergy, Mild, 02/11/10) [id number] Hx Patient Social History Alcohol Use: Denies Use Recreational Drug Use: No Smoking Status: Former Smoker Type Used: Smokeless Tobacco 2nd Hand Smoke Exposure: Yes Recent Foreign Travel: No Contact w/other who traveled: No Recent Hopitalizations: No Recent Infectious Disease Expo: No Physical Abuse Screen: No Sexual Abuse: No Immunizations Up To Date Tetanus Booster (TDap): Less than 5yrs Date of Influenza Vaccine: Sep 03, 2017 Family Medical History Significant Family History: No Pertinent Family Hx Family History: Diabetes mellitus DAUGHTER FH: COPD (chronic obstructive pulmonary disease) DAUGHTER FH: alcohol abuse DAUGHTER SON Hypertension DAUGHTER Seizure disorder DAUGHTER Substance abuse DAUGHTER SON Review of Systems (CHC) Constitutional: no symptoms reported Other UTO DUE TO DEMENTIA, NO FAMILY AVAILABLE Reviewed Test Results Reviewed Test Results Lab Laboratory Tests Test 02/01/18 00:35 02/01/18 00:55 02/01/18 01:10 02/01/18 06:12 Range/Units White Blood Count 8.2 7.2 4.3-11.0 10^3/uL Red Blood Count 4.33 L 4.14 L 4.35-5.85 10^6/uL Hemoglobin 14.2 13.7 13.3-17.7 G/DL Hematocrit 41 39 L 40-54 % Mean Corpuscular Volume 94 94 80-99 FL Mean Corpuscular Hemoglobin 33 33 25-34 PG Mean Corpuscular Hemoglobin Concent 35 35 32-36 G/DL Red Cell Distribution Width 12.7 12.6 10.0-14.5 % Platelet Count 128 L 113 L 130-400 10^3/uL Mean Platelet Volume 11.7 H 11.7 H 7.4-10.4 FL Neutrophils (%) (Auto) 67 53 42-75 % Lymphocytes (%) (Auto) 19 30 12-44 % Monocytes (%) (Auto) 13 H 15 H 0-12 % Eosinophils (%) (Auto) 2 1 0-10 % Basophils (%) (Auto) 0 0 0-10 % Neutrophils # (Auto) 5.4 3.9 1.8-7.8 X 10^3 Lymphocytes # (Auto) 1.5 2.2 1.0-4.0 X 10^3 Monocytes # (Auto) 1.0 1.1 H 0.0-1.0 X 10^3 Eosinophils # (Auto) 0.1 0.1 0.0-0.3 10^3/uL Basophils # (Auto) 0.0 0.0 0.0-0.1 10^3/uL Prothrombin Time 14.3 12.2-14.7 SEC INR Comment 1.1 0.8-1.4 Activated Partial Thromboplast Time 32 24-35 SEC D-Dimer 0.96 H 0.00-0.49 UG/ML Sodium Level 132 L 135 135-145 MMOL/L Potassium Level 3.8 3.5 L 3.6-5.0 MMOL/L Chloride Level 102 105 98-107 MMOL/L Carbon Dioxide Level 21 23 21-32 MMOL/L Anion Gap 9 7 5-14 MMOL/L Blood Urea Nitrogen 23 H 23 H 7-18 MG/DL Creatinine 2.08 H 2.05 H 0.60-1.30 MG/DL Estimat Glomerular Filtration Rate 31 32 BUN/Creatinine Ratio 11 11 Glucose Level 106 H 117 H 70-105 MG/DL Calcium Level 8.8 8.7 8.5-10.1 MG/DL Magnesium Level 1.9 1.8-2.4 MG/DL Total Bilirubin 1.3 H 0.1-1.0 MG/DL Aspartate Amino Transf (AST/SGOT) 23 5-34 U/L Alanine Aminotransferase (ALT/SGPT) 17 0-55 U/L Alkaline Phosphatase 114 40-136 U/L Troponin I < 0.30 <0.30 NG/ML B-Type Natriuretic Peptide 213.3 H <100.0 PG/ML Total Protein 6.6 6.4-8.2 GM/DL Albumin 3.6 3.2-4.5 GM/DL Glucometer 97 70-110 MG/DL Urine Color ANTHONY H Urine Clarity CLEAR Urine pH 6 5-9 Urine Specific [place] 1.020 1.016-1.022 Urine Protein 2+ H NEGATIVE Urine Glucose (UA) 2+ H NEGATIVE Urine Ketones NEGATIVE NEGATIVE Urine Nitrite NEGATIVE NEGATIVE Urine Bilirubin NEGATIVE NEGATIVE Urine Urobilinogen 1 NORMAL MG/DL Urine Leukocyte Esterase 1+ H NEGATIVE Urine RBC (Auto) 2+ H NEGATIVE Urine RBC 2-5 H /HPF Urine WBC RARE /HPF Urine Squamous Epithelial Cells 2-5 /HPF Urine Crystals NONE /LPF Urine Bacteria TRACE /HPF Urine Casts NONE /LPF Urine Mucus SMALL H /LPF Urine Culture Indicated NO Physical Exam-(CHC) Physical Exam Vital Signs VS - Last 72 Hours, by Label 02/01/18 02/01/18 02/01/18 02/01/18 00:19 00:56 01:19 02:24 Temp 98.8 98.7 Pulse 83 74 79 Resp 16 24 20 B/P (MAP) 114/78 (90) 126/72 104/58 Pulse Ox 93 93 96 95 O2 Delivery Room Air Room Air Room Air 02/01/18 02/01/18 02/01/18 02/01/18 02:33 02:35 02:35 03:15 Temp 97.3 Pulse 72 72 69 Resp 18 18 B/P (MAP) 116/70 116/70 (85) Pulse Ox 93 93 O2 Delivery Room Air Room Air 02/01/18 02/01/18 02/01/18 02/01/18 04:00 07:00 08:00 09:00 Temp 98.6 98.1 Pulse 65 56 70 Resp 18 18 B/P (MAP) 92/53 (66) 122/68 (86) Pulse Ox 92 97 97 O2 Delivery Room Air Room Air Room Air 02/01/18 02/01/18 02/01/18 02/01/18 12:00 13:00 16:30 19:00 Temp 97.4 99.5 Pulse 59 59 67 62 Resp 18 20 B/P (MAP) 98/57 (71) 92/53 (66) Pulse Ox 91 97 O2 Delivery Room Air Room Air 02/01/18 02/01/18 02/02/18 02/02/18 20:30 21:10 00:45 01:00 Temp 99.6 98.5 Pulse 76 64 57 Resp 20 20 B/P (MAP) 92/60 (71) 95/60 (72) Pulse Ox 92 94 O2 Delivery Room Air Room Air Room Air 02/02/18 02/02/18 04:20 07:00 Temp 99.1 Pulse 61 58 Resp 18 B/P (MAP) 95/56 (69) Pulse Ox 93 O2 Delivery Room Air Capillary Refill : Less Than 3 Seconds General Appearance: no apparent distress, other (chronically ill, disheveled) HEENT: PERRL/EOMI, normal ENT inspection, pharynx normal Neck: non-tender, full range of motion, supple, normal inspection Respiratory: chest non-tender, lungs clear, normal breath sounds, no respiratory distress, no accessory muscle use Cardiovascular: regular rate, rhythm, no gallop, no JVD, no murmur Gastrointestinal: normal bowel sounds, non tender, soft, no organomegaly, no pulsatile mass Extremities: normal range of motion, non-tender, no calf tenderness, normal capillary refill, pedal edema (2+ bilaterally) Neurologic/Psychiatric: public relations professional II-XII nml as tested, no motor/sensory deficits, alert, normal mood/affect, other (disoriented to time, place, president) Skin: normal color, warm/dry Assessment/Plan Assessment/Plan Admission Dx FALL FROM STANDING DEBILITY/WEAKNESS CHRONIC KIDNEY DISEASE CHRONIC SYSTOLIC CONGESTIVE HEART FAILURE PEDAL EDEMA CHRONIC KIDNEY DISEASE, CREATININE 1.7 IN CLINIC ON DEC 24, 2017 DEMENTIA Admission Status: Observation Assessment & Plan FALL FROM STANDING DEBILITY/WEAKNESS CHRONIC KIDNEY DISEASE CHRONIC SYSTOLIC CONGESTIVE HEART FAILURE PEDAL EDEMA THROMBOCYTOPENIA CHRONIC KIDNEY DISEASE, CREATININE 1.7 IN CLINIC ON DEC 24, 2017 DEMENTIA We will observe the patient today and obtain cardiology consult from Dr Xiong ( Dr Chapa is out of town). I do not think this is an acute exacerbation of the CHF as his BNP was 200. He does have pedal edema, but no change in his respiratory status. He is on aspirin 81mg and carvedilol at home. ACEI held due to CKD. Not sure why he is not on a statin; would advise taht at discharge. We will obtain carotid dopplers today; cannot obtain MRI due to metal in his head from trauma or CTA due to CKD. Will also obtain venous duplex due to the pedal edema. I do wonder if there is some liver issue at play given the thrombocytopenia. I believe he is high risk to add an antiplatelet due to his history of falls combined with [facility] thrombocytopenia, so I am just going to stay with [facility] ASA 81mg for now. We will observe his progress overnight and probably DC him in the morning. HH has already been arranged. I did ask him if he were willing to go to a NH and he responded " hell no" so that was in no way an option, despite [facility] fact that I am very concerned about his well-being if he continues to live at home. Clinical Quality Measures DVT/VTE Risk/Contraindication: Risk Factor Score Per Nursin RFS Level Per Nursing on Admit: 3=High Stroke: Date of last known well: Feb 01, 2018 Time of last known well: 09:00 Symptoms onset unknown: No Copy Copies To 1: PETER HOLLIS APRN, MD Feb 02, 2018 8:33 am
[2018-02-02] MEDS: ASPIRIN 81 MG CHEW (CHILDREN'S ASA) PO SCH (08:59)
--- NOTE | 2018-02-02 11:20 | Physical Therapy Daily Note ---
PT Daily Note-Current Subjective PT agreeable and denies pain. Mental Status Patient Orientation: Person, Place Transfers Functional [place] Measure 0=Not Assessed/NA 4=Minimal Assistance 1=Total Assistance 5=Supervision or Setup 2=Maximal Assistance 6=Modified [place] 3=Moderate Assistance 7=Complete IndependenceIRFPAI Quality Coding Scale 6 Independent with activity with or without an assistive device 5 Patient requires set up or clean up by helper. Patient completes activity by themselves 4 Supervision or touching assist (CGA). [place] provide cues , steadying assist 3 The helper provides less than half the effort to complete the activity 2 The helper provides more than half the effort to complete the activity 1 Dependent. The helper does all the effort to complete an activity 7 Patient refused to complete or attempt activity 9 The patient did not perform the activity before the current illness or injury 88 Not attempted due to Medical conditions or safety concerns SBA transfers Weight Bearing Weight Bearing/Tolerated Weight Bearing/Tolerated Gait Training Gait Assistive Device: FWW Pt amb with FWW and CGA-Min A 150ft at slow steady speed. Pt able to maintain straight line but unsteady at times requiring min A. Treatments Pt seated EOB with breakfast set up for him post therapy. Nurse aid notified. Assessment Current Status: Good Progress Pt herminio well. Pt responded appropriately to all directions. All needs met. Call light in reach. present post therapy session. PT Short Term Goals Short Term Goals Time Frame: Feb 04, 2018 PT Chcf Goals Husbandry Technician Goals PT Husbandry Technician Goals Time Frame: Feb 04, 2018 Transfers (B,C,W/C) (FIM): 5 Gait (FIM): 5 Gait distance (FIM): 3=150 ft Distance: 150 Gait Level of Assist: 5 Gait Assistive Device: Cane Small Base Quad PT Plan Treatment/Plan Treatment Plan: Continue Plan of Care Treatment Plan: Gait, Safety Treatment Duration: Feb 08, 2018 Frequency: 6 times per week Estimated Hrs Per Day: .25 hour per day Patient and/or Family Agrees t: Yes Time/GCodes Time In: 840 Time Out: 850 Total Billed Treatment Time: 10 Total Billed Treatment 1, gait 10 min PT/OT Therapy GCodes Therapy Functional Limitation: Physical Therapy Test(s)/Tool used to determine: FIM Functional Limitation-Current Charge Code: MOBCUR Modifier: CJ Functional Limitation-Goal Charge Code: MOBGOAL Modifier: ANTIONETTE MANLEY CPTA Feb 02, 2018 11:20
[2018-02-02] MEDS ORDERED: KCL 20 MEQ TAB (K-DUR) PO NR (11:45)
[2018-02-02 12:00] VITALS: BP 98/57
[2018-02-02] MEDS ORDERED: NS IV 500 ML 500 ML IV ONE (12:30)
--- NOTE | 2018-02-02 12:41 | D/C HH Face to Face Order ---
D/C Face to Face Orders Instructions for Patient Patient Instructions/FollowUp: Via [facility] to see patient Follow up with Dr. Chapa next week Follow up with Ruthy Luque next week Stop Carvedilol until seen by Dr. Chapa Physician to follow Patient: Dr. Caldera Discharge Diet for Home: Cardiac Diet Patient Problems: Dementia, Debility, Weakness, Chronic Systolic Heart Failure, Pacemaker, Type II Diabetes, HTN Goals for Patient: Strength building, gait steadiness Patient Data-Allergies,Ht & Wt Patient Allergies: Coded Allergies: NKANo Known Allergies (Unverified Allergy, Mild, 02/11/10) Height (Feet): 6 Height (Inches): 1.00 Weight (Pounds): 173 Weight (Ounces): 12.8 Home Health Need/Face to Face Date of Face to Face: Feb 02, 2018 Clinical Findings: Generalized weakness and fatigue, Unsteady gait I have seen Pt [id number]: Yes Discharged To: Home Diagnosis/Conditions: Dementia Chronic Systolic Heart Failure Pacemaker --> pt somewhat bradycardic in hospital, will follow up with Dr. Chapa next week regarding medications and pacemaker settings/function Generalized Weakness Type II Diabetes - Diet Controlled Cardiomyopathy History of HTN --> somewhat hypotensive in hospital Problems/Diagnosis/Condition: Patient is Homebound due to: CognItive deficits, [place] fall risk due to instabilty, Muscle weakness Homebound Status Due to the above stated illness, injury or surgical procedure (medical condition or diagnosis) and associated clinical findings, the patient is homebound because of his/her inability to leave home except with aid of a supportive device and/or person AND leaving the home requires a considerable and taxing effort or is medically contraindicated. Pt req the following assistanc: Aid of another person Home Health Nursing Orders Home Health Services Order: Nursing Services, Physical Therapy-Evaluate & Treat Home Health Infusion Therapy Line Type: Saline Lock Site Location: Forearm Therapy Orders Therapy Orders: Physical Therapy, PT to assess for OT Therapy Specific Orders: Teach strategies/cognitive deficits, Teach enviro modifications/safety, Gait training Certify Stmt I certify that this patient is under my care and that I, a nurse practitioner or a physician; a cement tester assistant working with me, had a face to face encounter that - meets the physician face to face encounter requirements with this patient as dated. MELANIE CAN DO Feb 02, 2018 12:41
--- NOTE | 2018-02-02 12:45 | Discharge Summary ---
Diagnosis/Chief Complaint Date of Admission Feb 01, 2018 at 02:00 Date of Discharge 02/02/18 Admission Diagnosis Admission Diagnosis FALL FROM STANDING DEBILITY/WEAKNESS CHRONIC KIDNEY DISEASE CHRONIC SYSTOLIC CONGESTIVE HEART FAILURE PEDAL EDEMA CHRONIC KIDNEY DISEASE, CREATININE 1.7 IN CLINIC ON DEC 24, 2017 DEMENTIA Admission Status: Observation Assessment & Plan FALL FROM STANDING DEBILITY/WEAKNESS CHRONIC KIDNEY DISEASE CHRONIC SYSTOLIC CONGESTIVE HEART FAILURE PEDAL EDEMA THROMBOCYTOPENIA CHRONIC KIDNEY DISEASE, CREATININE 1.7 IN CLINIC ON DEC 24, 2017 DEMENTIA Discharge Diagnosis FALL FROM STANDING DEBILITY/WEAKNESS CHRONIC KIDNEY DISEASE CHRONIC SYSTOLIC CONGESTIVE HEART FAILURE PEDAL EDEMA CHRONIC KIDNEY DISEASE, CREATININE 1.7 IN CLINIC ON DEC 24, 2017 DEMENTIA Admission Status: Observation Assessment & Plan FALL FROM STANDING DEBILITY/WEAKNESS CHRONIC KIDNEY DISEASE CHRONIC SYSTOLIC CONGESTIVE HEART FAILURE PEDAL EDEMA THROMBOCYTOPENIA CHRONIC KIDNEY DISEASE, CREATININE 1.7 IN CLINIC ON DEC 24, 2017 DEMENTIA We will observe the patient today and obtain cardiology consult from Dr Xiong ( Dr Chapa is out of town). I do not think this is an acute exacerbation of the CHF as his BNP was 200. He does have pedal edema, but no change in his respiratory status. He is on aspirin 81mg and carvedilol at home. ACEI held due to CKD. Not sure why he is not on a statin; would advise taht at discharge. We will obtain carotid dopplers today; cannot obtain MRI due to metal in his head from trauma or CTA due to CKD. Will also obtain venous duplex due to the pedal edema. I do wonder if there is some liver issue at play given the thrombocytopenia. I believe he is high risk to add an antiplatelet due to his history of falls combined with the [facility] thrombocytopenia, so I am just going to stay with the [facility] ASA 81mg for now. We will observe his progress overnight and probably DC him in the morning. has already been arranged. I did ask him if he were willing to go to a NH and he responded " hell no" so that was in no way an option, despite the [facility] fact that I am very concerned about his well-being if he continues to live at home. 02/02 - patient seen and examined, reports he feels "fine". Again asked about going to a custodial and expressed concerns about pt's living environment, patient stated he would not go anywhere but home. present at time of exam and also stated that they would not consider custodial placement, but were okay with home health. Patient with some hypotension noted, does not appear symptomatic, but will give IV fluid bolus prior to discharge and hold carvedilol at the recommendation of Dr. Xiong, until patient able to follow up with Dr. Chapa next week. Home Health face to face completed. Follow up in clinic next week. Chief Complaint/HPI Chief Complaint/HPI 77YO gentleman with a history of systolic CHF, pacemaker, diabetes mellitus type 2 , and dementia presented to ER with family. Patient fell from his shower chair on night of admission. Per Dr Carrion's history (no family available while I was present), the family stated he has had increasing debility in lance past few days. There was concern that he had left sided weakness the day of admission, which played into why they brought him in to ER. There was no report of sudden onset weakness, and the patient himself is disoriented to time and place so that history is unreliable. Per chart review, he was seen in November by Silva Luque, his BLOOD BANK LABORATORY TECHNOLOGIST. He had not seen a scalemaker in 2 years ([address] Chapa), and a new consult was placed, but the patient has not yet seen him (we have no new records), and Dr Chapa's office is usually quite reliable in letting us know patients have been there). His a1c at the time was 5.x % showing control of the diabetes. He is scheduled for a follow up on February 11 labeled as "concerns. Discharge Summary-OBS Procedures None. Consultations Dr Xiong, cardioloigst Discharge Physical Examination Allergies: Coded Allergies: NKANo Known Allergies (Unverified Allergy, Mild, 02/11/10) Vitals & I&Os Intake and Output 02/02/18 00:00 Intake Total 800 ml Balance 800 ml Vital Sign - Last 12Hours Date Time Temp Pulse Resp B/P (MAP) Pulse Ox O2 Delivery O2 Flow Rate FiO2 02/02/18 08:45 Room Air 02/02/18 08:00 98.2 60 16 83/53 (63) 93 General Appearance: Alert, Oriented X3, Cooperative, No Acute Distress HEENT: Atraumatic, EOMI, Mucous Memb Moist/[place] Respiratory: Clear to Auscultation, Normal Air Movement Cardiovascular: Regular Rate, Normal S1, Normal S2 Abdominal: Normal Bowel Sounds, Soft, No Tenderness Extremities: No Clubbing, No Cyanosis Skin: No Rashes, No Significant Lesion Neuro: Normal Tone, Sensation Intact, Cranial Nerves 3-12 NL Psych/Mental Status: Mental Status NL, Mood NL Hospital Course see final discharge diagnosis Labs Laboratory Tests Test 02/01/18 00:35 02/01/18 00:55 02/01/18 01:10 02/01/18 06:12 Range/Units White Blood Count 8.2 7.2 4.3-11.0 10^3/uL Red Blood Count 4.33 L 4.14 L 4.35-5.85 10^6/uL Hemoglobin 14.2 13.7 13.3-17.7 G/DL Hematocrit 41 39 L 40-54 % Mean Corpuscular Volume 94 94 80-99 FL Mean Corpuscular Hemoglobin 33 33 25-34 PG Mean Corpuscular Hemoglobin Concent 35 35 32-36 G/DL Red Cell Distribution Width 12.7 12.6 10.0-14.5 % Platelet Count 128 L 113 L 130-400 10^3/uL Mean Platelet Volume 11.7 H 11.7 H 7.4-10.4 FL Neutrophils (%) (Auto) 67 53 42-75 % Lymphocytes (%) (Auto) 19 30 12-44 % Monocytes (%) (Auto) 13 H 15 H 0-12 % Eosinophils (%) (Auto) 2 1 0-10 % Basophils (%) (Auto) 0 0 0-10 % Neutrophils # (Auto) 5.4 3.9 1.8-7.8 X 10^3 Lymphocytes # (Auto) 1.5 2.2 1.0-4.0 X 10^3 Monocytes # (Auto) 1.0 1.1 H 0.0-1.0 X 10^3 Eosinophils # (Auto) 0.1 0.1 0.0-0.3 10^3/uL Basophils # (Auto) 0.0 0.0 0.0-0.1 10^3/uL Prothrombin Time 14.3 12.2-14.7 SEC INR Comment 1.1 0.8-1.4 Activated Partial Thromboplast Time 32 24-35 SEC D-Dimer 0.96 H 0.00-0.49 UG/ML Sodium Level 132 L 135 135-145 MMOL/L Potassium Level 3.8 3.5 L 3.6-5.0 MMOL/L Chloride Level 102 105 98-107 MMOL/L Carbon Dioxide Level 21 23 21-32 MMOL/L Anion Gap 9 7 5-14 MMOL/L Blood Urea Nitrogen 23 H 23 H 7-18 MG/DL Creatinine 2.08 H 2.05 H 0.60-1.30 MG/DL Estimat Glomerular Filtration Rate 31 32 BUN/Creatinine Ratio 11 11 Glucose Level 106 H 117 H 70-105 MG/DL Calcium Level 8.8 8.7 8.5-10.1 MG/DL Magnesium Level 1.9 1.8-2.4 MG/DL Total Bilirubin 1.3 H 0.1-1.0 MG/DL Aspartate Amino Transf (AST/SGOT) 23 5-34 U/L Alanine Aminotransferase (ALT/SGPT) 17 0-55 U/L Alkaline Phosphatase 114 40-136 U/L Troponin I < 0.30 <0.30 NG/ML B-Type Natriuretic Peptide 213.3 H <100.0 PG/ML Total Protein 6.6 6.4-8.2 GM/DL Albumin 3.6 3.2-4.5 GM/DL Glucometer 97 70-110 MG/DL Urine Color ANTHONY H Urine Clarity CLEAR Urine pH 6 5-9 Urine Specific [place] 1.020 1.016-1.022 Urine Protein 2+ H NEGATIVE Urine Glucose (UA) 2+ H NEGATIVE Urine Ketones NEGATIVE NEGATIVE Urine Nitrite NEGATIVE NEGATIVE Urine Bilirubin NEGATIVE NEGATIVE Urine Urobilinogen 1 NORMAL MG/DL Urine Leukocyte Esterase 1+ H NEGATIVE Urine RBC (Auto) 2+ H NEGATIVE Urine RBC 2-5 H /HPF Urine WBC RARE /HPF Urine Squamous Epithelial Cells 2-5 /HPF Urine Crystals NONE /LPF Urine Bacteria TRACE /HPF Urine Casts NONE /LPF Urine Mucus SMALL H /LPF Urine Culture Indicated NO Discussion & Recommendations patient would be better off with discharge to a custodial, as it is felt that his home situation may not be the best for him to stay in, however patient refuses placement. discharge with home health and close office follow up. Discharge Condition at discharge stable Instructions to patient/family Please see electronic discharge instructions given to patient. Discharge Medications Reviewed and agree with Discharge Medication list on patient's Discharge Instruction sheet Clinical Quality Measures DVT/VTE Risk/Contraindication: Risk Factor Score Per Nursin RFS Level Per Nursing on Admit: 3=High Stroke: Date of last known well: Feb 01, 2018 Time of last known well: 09:00 Symptoms onset unknown: No Copy Copies To 1: [facility] [place] Copies To 2: TANISHA CHAPA MD, MARGARET E DO Feb 02, 2018 12:45
--- NOTE | 2018-02-02 14:48 | Progress Note-Cardiology ---
Cardiology SOAP Progress Note Subjective: He states he feels better today No cp or palp or syncope or shortness of breath Objective: I&O/Vital Signs Vital Sign - Last 12Hours 02/02/18 02/02/18 02/02/18 02/02/18 04:20 07:00 08:00 08:45 Temp 99.1 98.2 Pulse 61 58 60 Resp 18 16 B/P (MAP) 95/56 (69) 83/53 (63) Pulse Ox 93 93 O2 Delivery Room Air Room Air Room Air 02/02/18 02/02/18 12:00 13:00 Temp 98.4 Pulse 63 48 Resp 18 B/P (MAP) 98/57 (71) Pulse Ox 94 O2 Delivery Room Air Intake and Output 02/02/18 00:00 Intake Total 800 ml Balance 800 ml Weight (Pounds): 173 Weight (Ounces): 12.8 Weight (Calculated Kilograms): 78.285252 Constitutional: other (More cooperative today. Doesn't answer questions of orientation, but does seem to know where he is) Respiratory: No accessory muscle use, other (Lungs appear to have good air entry and are resonant to percussion) Cardiovascular: regular rate-rhythm, S1 and S2, systolic murmur (2/6 UGO at card base) Gastrointestional: No tender, soft, No guarding, No rebound, audible bowel sounds Extremities: No clubbing, No cyanosis, significant edema (edema is much improved today; only mild bilat leg edema) Neurologic/Psychiatric: other (He does not cooperate with a neurlogic exam; does not answer questions of orientation; moves all limbs equally but doesn't cooperate with exam for power or sensations) Skin: No rash on exposed areas, No ulcerations on exposed areas Results/Procedures: Labs Laboratory Tests 02/01/18 00:35 02/01/18 06:12 A/P: Assessment: L-sided [facility] of 02/01/18 did not show apparent interval acute intracranial abnormality; there were changes of encephalomalacia in the left frontal lobe, right frontal lobe, and right cerebellum Coronary disease, history of stent to the left circumflex. Last card cath in [address] Olson: patent LCX stent, LVEF 30%. Last MPI in [address] Chapa: anterior and anterolateral fixed perfusion defect with LVEF 40% Ischemic cardiomyopathy with EF 40 percent, last echo in August 2014 showing dilated left ventricle with akinesia of the anterior wall, anterolateral wall, mild MR, mild TR, PA 35 mmHg Chronic systolic CHF, followed by Dr Chapa. This appears clinically compensated. Mild BNP elevation is likely due to renal insuff Acute on chronic renal insuff. 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 Leg venous Doppler of 02/01/18 did not show DVT Probable dementia H/o hypertension H/o hyperlipidemia History of permanent pacemaker/ICD, [employer], functioning normally on last interrogation was done in [address] Meneses's H/o tobaccoism H/o carotid artery stenosis, followed by Dr Chapa. Carotid u/s of 02/01/18 showed only mild to mod bilat carotid arterial disease Plan: * I discussed his case with Dr Linton * Continue ASA * Hold carvedilol because of relatively low bp * He is not in any decompensated CHF at this time. Mild BNP elevation is likely due to ac on chronic renal failure. Ac component is likely due to volume depletion * We recommend careful hydration prior to discharged * Ok to d/c from card standpoint with outpat f/u with Dr Meneses, his tool specialist , next week Clinical Quality Measures Stroke: Date of last known well: Feb 01, 2018 Time of last known well: 09:00 Symptoms onset unknown: ROSA M Brown MD FACP FAC CCDS Feb 02, 2018 14:48
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
--- OUTSIDE RECORDS SUMMARY | 2018-02-02 15:51 | XMS REPORT | Continuity of Care Document ---
Author Author [facility] Address Unknown Phone Unavailable Allergies Active Description Code Type Severity Reaction Onset Reported/Identified Relationship to Patient Clinical Status Yes NKANo Known Allergies NKA Miscellaneous Allergy Mild N/A 02/11/2010 Medications There is no data. 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 10/25/1599 SUSAN JENSEN APRN Ot M79.604 PAIN IN RIGHT LEG 06/07/2010 BENIGNO MCDONOUGH MD 300.9 UNSPECIFIED NONPSYCHOTIC MENTAL DISORDER 06/07/2010 BENIGNO MCDONOUGH MD 414.00 CORONARY ATHEROSCLEROSIS OF UNSPECIFIED TYPE OF VESSEL, [place] OR GRAFT 06/07/2010 BENIGNO MCDONOUGH MD V58.69 LONG-TERM (CURRENT) USE OF OTHER MEDICATIONS 06/07/2010 DEEPALI HENDRICKS APRN 300.9 UNSPECIFIED NONPSYCHOTIC MENTAL DISORDER 06/07/2010 DEEPALI HENDRICKS APRN 414.00 CORONARY ATHEROSCLEROSIS OF UNSPECIFIED TYPE OF VESSEL, [place] OR GRAFT 06/07/2010 DEEPALI HENDRICKS APRN V58.69 LONG-TERM (CURRENT) USE OF OTHER MEDICATIONS 06/07/2010 300.9 UNSPECIFIED NONPSYCHOTIC MENTAL DISORDER 06/07/2010 414.00 CORONARY ATHEROSCLEROSIS OF UNSPECIFIED TYPE OF VESSEL, [place] OR GRAFT 06/07/2010 V58.69 LONG-TERM ( CURRENT) USE OF OTHER MEDICATIONS 06/07/2010 DEEPALI HENDRICKS APRN 300.9 UNSPECIFIED NONPSYCHOTIC MENTAL DISORDER 06/07/2010 DEEPALI HENDRICKS APRN 414.00 CORONARY ATHEROSCLEROSIS OF UNSPECIFIED TYPE OF VESSEL, [place] OR GRAFT 06/07/2010 DEEPALI HENDRICKS APRN V58.69 LONG-TERM (CURRENT) USE OF OTHER MEDICATIONS 06/07/2010 ALFARO DO, SOLIS K 300.9 UNSPECIFIED NONPSYCHOTIC MENTAL DISORDER 06/07/2010 ALFARO DO, SOLIS K 414.00 CORONARY ATHEROSCLEROSIS OF UNSPECIFIED TYPE OF VESSEL, [place] OR GRAFT 06/07/2010 ALFARO DO, SOLIS K V58.69 LONG-TERM (CURRENT) USE OF OTHER MEDICATIONS 06/07/2010 ALFARO DO, SOLIS K 300.9 UNSPECIFIED NONPSYCHOTIC MENTAL DISORDER 06/07/2010 ALFARO DO, SOLIS K 414.00 CORONARY ATHEROSCLEROSIS OF UNSPECIFIED TYPE OF VESSEL, [place] OR GRAFT 06/07/2010 ALFARO DO, SOLIS K V58.69 LONG-TERM (CURRENT) USE OF OTHER MEDICATIONS 06/07/2010 ALFARO DO, SOLIS K 300.9 UNSPECIFIED NONPSYCHOTIC MENTAL DISORDER 06/07/2010 ALFARO DO, SOLIS K 414.00 CORONARY ATHEROSCLEROSIS OF UNSPECIFIED TYPE OF VESSEL, [place] OR GRAFT 06/07/2010 ALFARO DO SOLIS K V58.69 LONG-TERM (CURRENT) USE OF OTHER MEDICATIONS 06/07/2010 DEEPALI HENDRICKS APRN 300.9 UNSPECIFIED NONPSYCHOTIC MENTAL DISORDER 06/07/2010 DEEPALI HENDRICKS APRN 414.00 CORONARY ATHEROSCLEROSIS OF UNSPECIFIED TYPE OF VESSEL, [place] OR GRAFT 06/07/2010 DEEPALI HENDRICKS APRN V58.69 LONG-TERM (CURRENT) USE OF OTHER MEDICATIONS 06/07/2010 DEEPALI HENDRICKS APRN 300.9 UNSPECIFIED NONPSYCHOTIC MENTAL DISORDER 06/07/2010 DEEPALI HENDRICKS APRN 414.00 CORONARY ATHEROSCLEROSIS OF UNSPECIFIED TYPE OF VESSEL, [place] OR GRAFT 06/07/2010 DEEPALI HENDRICKS APRN V58.69 LONG-TERM (CURRENT) USE OF OTHER MEDICATIONS 06/07/2010 300.9 UNSPECIFIED NONPSYCHOTIC MENTAL DISORDER 06/07/2010 414.00 CORONARY ATHEROSCLEROSIS OF UNSPECIFIED TYPE OF VESSEL, [place] OR [place]RAFT 06/07/2010 V58.69 LONG-TERM ( CURRENT) USE OF OTHER MEDICATIONS 06/07/2010 SU HOPKINS APRN S 300.9 UNSPECIFIED NONPSYCHOTIC MENTAL DISORDER 06/07/2010 SU HOPKINS APRN S 414.00 CORONARY ATHEROSCLEROSIS OF UNSPECIFIED TYPE OF VESSEL, [place] OR [place]FT 06/07/2010 SU HOPKINS APRN S V58.69 LONG-TERM (CURRENT) USE OF OTHER MEDICATIONS 06/07/2010 KELLIE MENTAL RETARDATION NURSE, SU S 300.9 UNSPECIFIED NONPSYCHOTIC MENTAL DISORDER 06/07/2010 KELLIE MENTAL RETARDATION NURSE, SU S 414.00 CORONARY ATHEROSCLEROSIS OF UNSPECIFIED TYPE OF VESSEL, [place] OR [place] 06/07/2010 KELLIE MENTAL RETARDATION NURSE, SU S V58.69 LONG-TERM (CURRENT) USE OF OTHER MEDICATIONS 06/07/2010 KELLIE MENTAL RETARDATION NURSE, SU S 300.9 UNSPECIFIED NONPSYCHOTIC MENTAL DISORDER 06/07/2010 KELLIE MENTAL RETARDATION NURSE, SU S 414.00 CORONARY ATHEROSCLEROSIS OF UNSPECIFIED TYPE OF VESSEL, [place] OR [place]RAFT 06/07/2010 KELLIE MENTAL RETARDATION NURSE, SU S V58.69 LONG-TERM (CURRENT) USE OF OTHER MEDICATIONS 06/07/2010 KELLIE MENTAL RETARDATION NURSE, SU S 300.9 UNSPECIFIED NONPSYCHOTIC MENTAL DISORDER 06/07/2010 KELLIE MENTAL RETARDATION NURSE, SU S 414.00 CORONARY ATHEROSCLEROSIS OF UNSPECIFIED TYPE OF VESSEL, [place] OR [place]RA[place] 06/07/2010 PONCHO HOPKINS APRNNDA S V58.69 LONG-TERM (CURRENT) USE OF OTHER MEDICATIONS 06/15/2010 BENIGNO MCDONOUGH MD 300.00 AN ANXIETY UNSPEC 06/15/2010 BENIGNO MCDONOUGH MD 780.09 OR DELERIUM NOS 06/15/2010 DEEPALI HENDRICKS APRN 300.00 AN ANXIETY UNSPEC 06/15/2010 DEEPALI HENDRICKS APRN 780.09 OR DELERIUM NOS 06/15/2010 300.00 AN ANXIETY UNSPEC 06/15/2010 780.09 OR DELERIUM NOS 06/15/2010 DEEPALI HENDRICKS APRN 300.00 AN ANXIETY UNSPEC 06/15/2010 DEEPALI HENDRICKS APRN 780.09 OR DELERIUM NOS 06/15/2010 ALFARO DO, SOLIS K 300.00 AN ANXIETY UNSPEC 06/15/2010 ALFARO DO, SOLIS K 780.09 OR DELERIUM NOS 06/15/2010 ALFARO DO, SOLIS K 300.00 AN ANXIETY UNSPEC 06/15/2010 ALFARO DO, SOLIS K 780.09 OR DELERIUM NOS 06/15/2010 ALFARO DO, SOLIS K 300.00 AN ANXIETY UNSPEC 06/15/2010 ALFARO DO, SOLIS K 780.09 OR DELERIUM NOS 06/15/2010 DEEPALI HENDRICKS APRN 300.00 AN ANXIETY UNSPEC 06/15/2010 DEEPALI HENDRICKS APRN 780.09 OR DELERIUM NOS 06/15/2010 DEEPALI HENDRICKS APRN 300.00 AN ANXIETY UNSPEC 06/15/2010 DEEPALI HENDRICKS APRN 780.09 OR DELERIUM NOS 06/15/2010 300.00 AN ANXIETY UNSPEC 06/15/2010 780.09 OR DELERIUM NOS 06/15/2010 KELLIE MENTAL RETARDATION NURSE, SU S 300.00 AN ANXIETY UNSPEC 06/15/2010 KELLIE MENTAL RETARDATION NURSE, SU S 780.09 OR DELERIUM NOS 06/15/2010 KELLIE MENTAL RETARDATION NURSE, SU S 300.00 AN ANXIETY UNSPEC 06/15/2010 KELLIE MENTAL RETARDATION NURSE, SU S 780.09 OR DELERIUM NOS 06/15/2010 KELLIE MENTAL RETARDATION NURSE, SU S 300.00 AN ANXIETY UNSPEC 06/15/2010 KELLIE MENTAL RETARDATION NURSE, SU S 780.09 OR DELERIUM NOS 06/15/2010 KELLIE FRANCIS, SU S 300.00 AN ANXIETY UNSPEC 06/15/2010 KELLIE MENTAL RETARDATION NURSE, SU S 780.09 OR DELERIUM NOS 08/10/2010 BENIGNO MCDONOUGH MD 414.01 CORONARY ARTERY STENOSIS MULTI-VESSEL 08/10/2010 DEEPALI HENDRICKS APRN 414.01 CORONARY ARTERY STENOSIS MULTI-VESSEL 08/10/2010 414.01 CORONARY ARTERY STENOSIS MULTI-VESSEL 08/10/2010 DEEPALI HENDRICKS APRN 414.01 CORONARY ARTERY STENOSIS MULTI-VESSEL 08/10/2010 ALFARO DO, SOLIS K 414.01 CORONARY ARTERY STENOSIS MULTI-VESSEL 08/10/2010 ALFARO DO, SOLIS K 414.01 CORONARY ARTERY STENOSIS MULTI-VESSEL 08/10/2010 ALFARO DO, SOLIS K 414.01 CORONARY ARTERY STENOSIS MULTI-VESSEL 08/10/2010 DEEPALI HENDRICKS APRN 414.01 CORONARY ARTERY STENOSIS MULTI-VESSEL 08/10/2010 DEEPALI HENDRICKS APRN 414.01 CORONARY ARTERY STENOSIS MULTI-VESSEL 08/10/2010 414.01 CAD 08/10/2010 ISIS HOPKINS APRNA S 414.01 CORONARY ARTERY STENOSIS MULTI-VESSEL 08/10/2010 ISIS HOPKINS APRNA S 414.01 CORONARY ARTERY STENOSIS MULTI-VESSEL 08/10/2010 ISIS HOPKINS APRNA S 414.01 CORONARY ARTERY STENOSIS MULTI-VESSEL 08/10/2010 ISIS HOPKINS APRNA S 414.01 CORONARY ARTERY STENOSIS MULTI-VESSEL 01/11/2011 BENIGNO MCDONOUGH MD 604.90 ORCHITIS AND EPIDIDYMITIS UNSPECIFIED 01/11/2011 DEEPALI HENDRICKS APRN 604.90 ORCHITIS AND EPIDIDYMITIS UNSPECIFIED 01/11/2011 604.90 ORCHITIS AND EPIDIDYMITIS UNSPECIFIED 01/11/2011 DEEPALI HENDRICKS APRN 604.90 ORCHITIS AND EPIDIDYMITIS UNSPECIFIED 01/11/2011 ALFARO DO, SOLIS K 604.90 ORCHITIS AND EPIDIDYMITIS UNSPECIFIED 01/11/2011 ALFARO DO, SOLIS K 604.90 ORCHITIS AND EPIDIDYMITIS UNSPECIFIED 01/11/2011 ALFARO DO, SOLIS K 604.90 ORCHITIS AND EPIDIDYMITIS UNSPECIFIED 01/11/2011 DEEPALI HENDRICKS APRN 604.90 ORCHITIS AND EPIDIDYMITIS UNSPECIFIED 01/11/2011 DEEPALI HENDRICKS APRN 604.90 ORCHITIS AND EPIDIDYMITIS UNSPECIFIED 01/11/2011 604.90 ORCHITIS AND EPIDIDYMITIS UNSPECIFIED 01/11/2011 ISIS HOPKINS APRNA S 604.90 ORCHITIS AND EPIDIDYMITIS UNSPECIFIED 01/11/2011 PONCHO HOPKINS APRNNDA S 604.90 ORCHITIS AND EPIDIDYMITIS UNSPECIFIED 01/11/2011 ISIS HOPKINS APRNA S 604.90 ORCHITIS AND EPIDIDYMITIS UNSPECIFIED 01/11/2011 ISIS HOPKINS APRNA S 604.90 ORCHITIS AND EPIDIDYMITIS UNSPECIFIED 06/07/2011 BENIGNO MCDONOUGH MD 272.4 HYPERLIPIDEMIA 06/07/2011 DEEPALI HENDRICKS APRN 272.4 HYPERLIPIDEMIA 06/07/2011 272.4 HYPERLIPIDEMIA 06/07/2011 DEEPALI HENDRICKS APRN 272.4 HYPERLIPIDEMIA 06/07/2011 ALFARO DO, SOLIS K 272.4 HYPERLIPIDEMIA 06/07/2011 ALFARO DO, SOLIS K 272.4 HYPERLIPIDEMIA 06/07/2011 ALFARO DO, SOLIS K 272.4 HYPERLIPIDEMIA 06/07/2011 DEEPALI HENDRICKS APRN 272.4 HYPERLIPIDEMIA 06/07/2011 DEEPALI HENDRICKS APRN 272.4 HYPERLIPIDEMIA 06/07/2011 272.4 HYPERLIPIDEMIA 06/07/2011 KELLIE MENTAL RETARDATION NURSE, SU S 272.4 HYPERLIPIDEMIA 06/07/2011 KELLIE MENTAL RETARDATION NURSE, SU S 272.4 HYPERLIPIDEMIA 06/07/2011 KELLIE MENTAL RETARDATION NURSE, SU S 272.4 HYPERLIPIDEMIA 06/07/2011 KELLIE MENTAL RETARDATION NURSE, SU S 272.4 HYPERLIPIDEMIA 08/01/2011 Ot 813.42 08/01/2011 Ot 959.3 08/01/2011 Ot E000.8 08/01/2011 Ot E849.0 08/01/2011 Ot E888.9 01/15/2013 DEEPALI HENDRICKS APRN 703.8 OTHER SPECIFIED DISEASES OF NAIL 01/15/2013 703.8 OTHER SPECIFIED DISEASES OF NAIL 01/15/2013 DEEPALI HENDRICKS APRN 703.8 OTHER SPECIFIED DISEASES OF NAIL 01/15/2013 ALFARO DO, SOLIS K 703.8 OTHER SPECIFIED DISEASES OF NAIL 01/15/2013 ALFARO DO, SOLIS K 703.8 OTHER SPECIFIED DISEASES OF NAIL 01/15/2013 ALFARO DO, SOLIS K 703.8 OTHER SPECIFIED DISEASES OF NAIL 01/15/2013 DEEPALI HENDRICKS APRN 703.8 OTHER SPECIFIED DISEASES OF NAIL 01/15/2013 DEEPALI HENDRICKS APRN 703.8 OTHER SPECIFIED DISEASES OF NAIL 01/15/2013 KELLIESHARLENE FRANCIS SU S 703.8 OTHER SPECIFIED DISEASES OF NAIL 01/15/2013 KELLIE PENNY SU S 703.8 OTHER SPECIFIED DISEASES OF NAIL 01/15/2013 KELLIE PENNY SU S 703.8 OTHER SPECIFIED DISEASES OF NAIL 01/15/2013 KELLIE PENNY SU S 703.8 OTHER SPECIFIED DISEASES OF NAIL 02/05/2013 786.50 CHEST PAIN 02/05/2013 DEEPALI HENDRICKS APRN 786.50 CHEST PAIN 02/05/2013 ALFARO DO, SOLIS K 786.50 CHEST PAIN 02/05/2013 ALFARO DO, SOLIS K 786.50 CHEST PAIN 02/05/2013 ALFARO DO, SOLIS K 786.50 CHEST PAIN 02/05/2013 DEEPALI HENDRICKS APRN 786.50 CHEST PAIN 02/05/2013 DEEPALI HENDRICKS APRN 786.50 CHEST PAIN 02/05/2013 KELLIESHARLENE FRANCIS SU S 786.50 CHEST PAIN 02/05/2013 KELLIE MENTAL RETARDATION NURSE, SU S 786.50 CHEST PAIN 02/05/2013 KELLIE MENTAL RETARDATION NURSE, SU S 786.50 CHEST PAIN 02/05/2013 KELLIE MENTAL RETARDATION NURSE, SU S 786.50 CHEST PAIN 02/19/2013 Ot 272.4 02/19/2013 Ot 412 02/19/2013 Ot 414.01 02/19/2013 Ot 414.2 02/19/2013 Ot 414.8 02/19/2013 Ot 428.22 02/19/2013 Ot V45.82 02/19/2013 Ot V58.66 02/19/2013 Ot V58.69 03/05/2013 ALFARO DO, SOLIS K 425.4 CARDIOMYOPHATHY 03/05/2013 ALFARO DO SOLIS K 425.4 CARDIOMYOPHATHY 03/05/2013 ALFARO DO, SOLIS K 425.4 CARDIOMYOPHATHY 03/05/2013 DEEPALI HENDRICKS APRN 425.4 CARDIOMYOPHATHY 03/05/2013 DEEPALI HENDRICKS APRN 425.4 CARDIOMYOPHATHY 03/05/2013 KELLIE MENTAL RETARDATION NURSE, SU S 425.4 CARDIOMYOPHATHY 03/05/2013 KELLIE MENTAL RETARDATION NURSE, SU S 425.4 CARDIOMYOPHATHY 03/05/2013 KELLIE MENTAL RETARDATION NURSE, SU S 425.4 CARDIOMYOPHATHY 03/05/2013 KELLIE MENTAL RETARDATION NURSE, SU S 425.4 CARDIOMYOPHATHY 10/03/2013 ALFARO DO SOLIS K 428.0 CONGESTIVE HEART FAILURE, UNSPECIFIED 10/03/2013 ALFARO DO SOLIS K 428.0 CONGESTIVE HEART FAILURE, UNSPECIFIED 10/03/2013 DEEPALI HENDRICKS APRN T 428.0 CONGESTIVE HEART FAILURE, UNSPECIFIED 10/03/2013 DEEPALI HENDRICKS APRN 428.0 CONGESTIVE HEART FAILURE, UNSPECIFIED 10/03/2013 KELLIE MENTAL RETARDATION NURSE, SU S 428.0 CONGESTIVE HEART FAILURE, UNSPECIFIED 10/03/2013 KELLIE MENTAL RETARDATION NURSE, SU S 428.0 CONGESTIVE HEART FAILURE, UNSPECIFIED 10/03/2013 KELLIE MENTAL RETARDATION NURSE, SU S 428.0 CONGESTIVE HEART FAILURE, UNSPECIFIED 10/03/2013 KELLIE MENTAL RETARDATION NURSE, SU S 428.0 CONGESTIVE HEART FAILURE, UNSPECIFIED 11/17/2014 NEY DAY Ot 272.4 11/17/2014 HIGUERA-CAMILA PA, NEY K Ot 397.0 11/17/2014 HIGUERA-CAMILA PA, NEY K Ot 401.9 11/17/2014 HIGUERA-CAMILA PA, NEY K Ot 414.00 11/17/2014 HIGUERA-CAMILA PA, NEY K Ot 424.0 11/17/2014 HIGUERA-CAMILA PA, NEY K Ot 428.0 12/05/2014 Ot 412 12/05/2014 Ot 786.50 12/05/2014 Ot 414.01 12/05/2014 Ot 414.00 12/05/2014 Ot 414.01 12/05/2014 Ot 272.4 12/05/2014 Ot 414.00 12/05/2014 Ot V58.69 12/05/2014 Ot 424.0 12/05/2014 Ot 428.20 12/05/2014 Ot 786.50 12/05/2014 Ot 786.50 12/05/2014 HIGUERA-CAMILA PA, NEY K Ot 397.0 12/05/2014 HIGUERA-CAMILA PA, NEY K Ot 414.00 12/05/2014 HIGUERA-CAMILA PA, NEY K Ot 424.0 12/05/2014 HIGUERA-CAMILA PA, NEY K Ot 428.0 12/05/2014 HIGUERA-CAMILA PA, NEY K Ot V45.01 12/05/2014 DEMAR DORADO, TANISHA Vale Ot 272.4 12/05/2014 DEMAR DORADO, TANISHA J Ot 414.00 12/05/2014 DEMAR DORADO, TANISHA Vale Ot 428.0 12/05/2014 HIGUERA-CAMILA PA, NEY K Ot 272.4 12/05/2014 HIGUERA-CAMILA PA, NEY K Ot 305.1 12/05/2014 HIGUERA-CAMILA PA, NEY K Ot 401.9 12/05/2014 HIGUERA-CAMILA PA, NEY K Ot 410.90 12/05/2014 HIGUERA-CAMILA PA, NEY K Ot 414.01 12/05/2014 HIGUERA-CAMILA PA, NEY K Ot 428.0 12/05/2014 HIGUERA-CAMILA PA, NEY K Ot 433.10 12/05/2014 HIGUERA-CAMILA PA, NEY K Ot 785.9 12/05/2014 HIGUERA-CAMILA PA, NEY K Ot 272.4 12/05/2014 KALEN-CAMILA PA, NEY K Ot 397.0 12/05/2014 KALEN-CAMILA PA, NEY K Ot 401.9 12/05/2014 HIGUERA-CAMILA PA, NEY K Ot 414.00 12/05/2014 IHGUERA-CAMILA PA, NEY K Ot 424.0 12/05/2014 HIGUERA-CAMILA PA, NEY K Ot 428.0 12/05/2014 DENVER DORADO, JOSÉ T Ot 272.0 12/05/2014 DENVER DORADO, JOSÉ T Ot 401.9 12/05/2014 DENVER DORADO, JOSÉ T Ot 414.01 12/05/2014 DENVER DORADO, JOSÉ T Ot 466.0 12/05/2014 DENVER DORADO, JOSÉ T Ot 780.79 12/05/2014 DENVER DORADO, JOSÉ T Ot 790.29 12/05/2014 DENVER DORADO, JOSÉ T Ot 920 12/05/2014 DENVER DORADO, JOSÉ T Ot E000.8 12/05/2014 DENVER DORADO, JOSÉ T Ot E849.0 12/05/2014 DENVER DORADO, JOSÉ T Ot E888.1 12/05/2014 DENVER DORADO, JOSÉ T Ot V15.82 12/05/2014 DENVER DORADO, JOSÉ T Ot V45.01 12/10/2014 SU HOPKINS APRN S 487.1 INFLUENZA 12/10/2014 SU HOPKINS APRN S 487.1 INFLUENZA 05/19/2015 DEMAR DORADO, TANISHA Vale Ot 272.4 05/19/2015 DEMAR DORADO, TANISHA Vale Ot 401.9 05/19/2015 DEMAR DORADO, TANISHA J Ot 414.00 05/19/2015 DEMAR DORADO, TANISHA J Ot 428.0 12/12/2015 DEMAR DORADO, TANISHA Vale Ot 272.4 12/12/2015 DEMAR DORADO, TANISHA Vale Ot 401.9 12/12/2015 DEMAR DORADO, TANISHA J Ot 414.00 12/12/2015 TANISHA CHAPA MD Ot 428.0 12/12/2015 TANISHA CHAPA MD Ot 272.4 12/12/2015 TANISHA CHAPA MD Ot 401.9 12/12/2015 TANISHA CHAPA MD Ot 414.00 12/12/2015 TANISHA CHAPA MD Ot 428.0 12/12/2015 KURTIS HIGUERA MD Ot F17.211 NICOTINE DEPENDENCE, CIGARETTES, IN NADER 12/12/2015 KURTIS HIGUERA MD Ot J20.9 ACUTE BRONCHITIS, UNSPECIFIED 08/28/2016 JOSÉ GOFF MD, Ot I10 ESSENTIAL (PRIMARY) HYPERTENSION 08/28/2016 JOSÉ GOFF MD, Ot J44.9 CHRONIC OBSTRUCTIVE PULMONARY DISEASE, U 08/28/2016 JOSÉ GOFF MD, Ot M47.812 SPONDYLOSIS W/O MYELOPATHY OR RADICULOPA 08/28/2016 JOSÉ GOFF MD, Ot R42 DIZZINESS AND GIDDINESS 08/28/2016 JOSÉ GOFF MD, Ot S01.81XA LACERATION W/O FOREIGN BODY OF OTH PART 08/28/2016 JOSÉ GOFF MD, Ot W01.0XXA FALL SAME LEV FROM SLIP/TRIP W/O STRIKE 08/28/2016 JOSÉ GOFF MD, Ot Y92.[address] OF OCCURRENCE OF THE E 08/28/2016 JOSÉ GOFF MD, Ot Y93.01 ACTIVITY, WALKING, MARCHING AND HIKING 08/28/2016 JOSÉ GOFF MD, Ot Y99.8 OTHER EXTERNAL CAUSE STATUS 08/28/2016 JOSÉ GOFF MD, Ot Z23 ENCOUNTER FOR IMMUNIZATION 08/28/2016 JOSÉ GOFF MD, Ot Z79.82 RETIREMENT (CURRENT) USE OF ASPIRIN 08/28/2016 JOSÉ GOFF MD, Ot Z95.0 PRESENCE OF CARDIAC PACEMAKER 08/28/2016 JOSÉ GOFF MD, Ot Z95.5 PRESENCE OF CORONARY ANGIOPLASTY IMPLANT 08/28/2016 JOSÉ GOFF MD, Ot Z98.1 ARTHRODESIS STATUS 08/29/2016 JOSÉ GOFF MD, Ot I10 ESSENTIAL (PRIMARY) HYPERTENSION 08/29/2016 JOSÉ GOFF MD, Ot J44.9 CHRONIC OBSTRUCTIVE PULMONARY DISEASE, U 08/29/2016 JOSÉ GOFF MD, Ot M47.812 SPONDYLOSIS W/O MYELOPATHY OR RADICULOPA 08/29/2016 JOSÉ GOFF MD, Ot R42 DIZZINESS AND GIDDINESS 08/29/2016 JOSÉ GOFF MD, Ot S01.81XA LACERATION W/O FOREIGN BODY OF OTH PART 08/29/2016 JOSÉ GOFF MD, Ot W01.0XXA FALL SAME LEV FROM SLIP/TRIP W/O STRIKE 08/29/2016 JOSÉ GOFF MD, Ot Y92.[address] OF OCCURRENCE OF THE E 08/29/2016 JOSÉ GOFF MD, Ot Y93.01 ACTIVITY, WALKING, MARCHING AND HIKING 08/29/2016 JOSÉ GOFF MD, Ot Y99.8 OTHER EXTERNAL CAUSE STATUS 08/29/2016 JOSÉ GOFF MD, Ot Z23 ENCOUNTER FOR IMMUNIZATION 08/29/2016 JOSÉ GOFF MD, Ot Z79.82 PATTERN DRUM MAKER (CURRENT) USE OF ASPIRIN 08/29/2016 JOSÉ GOFF MD, Ot Z95.0 PRESENCE OF CARDIAC PACEMAKER 08/29/2016 JOSÉ GOFF MD, Ot Z95.5 PRESENCE OF CORONARY ANGIOPLASTY IMPLANT 08/29/2016 JOSÉ GOFF MD, Ot Z98.1 ARTHRODESIS STATUS 09/12/2016 PETER GLOVER MD, Ot I10 ESSENTIAL (PRIMARY) HYPERTENSION 09/12/2016 PETER GLOVER MD, Ot I25.10 ATHSCL HEART DISEASE OF [place] CORONARY 09/12/2016 PETER GLOVER MD, Ot I25.2 OLD MYOCARDIAL INFARCTION 09/12/2016 PETER GLOVER MD, Ot L03.115 CELLULITIS OF RIGHT LOWER LIMB 09/12/2016 PETER GLOVER MD, Ot L03.116 CELLULITIS OF LEFT LOWER LIMB 09/12/2016 PETER GLOVER MD, Ot Z87.891 PERSONAL HISTORY OF NICOTINE DEPENDENCE 09/12/2016 PETER GLOVER MD Ot Z95.0 PRESENCE OF CARDIAC PACEMAKER 09/12/2016 PETER GLOVER MD Ot Z95.5 PRESENCE OF CORONARY ANGIOPLASTY IMPLANT 09/12/2016 PETER GLOVER MD Ot I10 ESSENTIAL (PRIMARY) HYPERTENSION 09/12/2016 PETER GLOVER MD Ot I25.10 ATHSCL HEART DISEASE OF [place] CORONARY 09/12/2016 PETER GLOVER MD Ot I25.2 OLD MYOCARDIAL INFARCTION 09/12/2016 PETER GLOVER MD Ot L03.115 CELLULITIS OF RIGHT LOWER LIMB 09/12/2016 PETER GLOVER MD Ot L03.116 CELLULITIS OF LEFT LOWER LIMB 09/12/2016 PETER GLOVER MD, Ot Z87.891 PERSONAL HISTORY OF NICOTINE DEPENDENCE 09/12/2016 PETER GLOVER MD Ot Z95.0 PRESENCE OF CARDIAC PACEMAKER 09/12/2016 PETER GOLVER MD Ot Z95.5 PRESENCE OF CORONARY ANGIOPLASTY IMPLANT 09/19/2016 DAYANNA DILL MD Ot B35.3 TINEA PEDIS 09/19/2016 DAYANNA DILL MD Ot I89.0 LYMPHEDEMA, NOT ELSEWHERE CLASSIFIED 09/19/2016 DAYANNA DILL MD Ot M79.604 PAIN IN RIGHT LEG 09/22/2016 DAYANNA DILL MD Ot B35.3 TINEA PEDIS 09/22/2016 DAYANNA DILL MD Ot I89.0 LYMPHEDEMA, NOT ELSEWHERE CLASSIFIED 09/22/2016 DAYANNA DILL MD Ot M79.604 PAIN IN RIGHT LEG 09/28/2016 SUSAN JENSEN APRN Ot I89.0 LYMPHEDEMA, NOT ELSEWHERE CLASSIFIED 09/28/2016 SUSAN JENSEN APRN Ot 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 09/28/2016 SUSAN JENSEN APRN Ot M79.604 PAIN IN RIGHT LEG 10/04/2016 KURTIS HIGUERA MD Ot F17.220 NICOTINE DEPENDENCE, CHEWING TOBACCO, UN 10/04/2016 KURTIS HIGUERA MD, Ot I10 ESSENTIAL (PRIMARY) HYPERTENSION 10/04/2016 KURTIS HIGUERA MD Ot K59.00 CONSTIPATION, UNSPECIFIED 10/04/2016 KURTIS HIGUERA MD Ot R10.13 EPIGASTRIC PAIN 10/04/2016 KURTIS HIGUERA MD, Ot Z79.82 PATTERN DRUM MAKER (CURRENT) USE OF ASPIRIN 10/04/2016 KURTIS HIGUERA MD, Ot Z79.899 OTHER PATTERN DRUM MAKER (CURRENT) DRUG THERAPY 10/04/2016 KURTIS HIGUERA MD Ot Z95.0 PRESENCE OF CARDIAC PACEMAKER 10/04/2016 KURTIS HIGUERA MD Ot F17.220 NICOTINE DEPENDENCE, CHEWING TOBACCO, UN 10/04/2016 KURTIS HIGUERA MD, Ot I10 ESSENTIAL (PRIMARY) HYPERTENSION 10/04/2016 KURTIS HIGUERA MD, Ot K59.00 CONSTIPATION, UNSPECIFIED 10/04/2016 KURTIS HIGUERA MD, Ot R10.13 EPIGASTRIC PAIN 10/04/2016 KURTIS HIGUERA MD, Ot Z79.82 PATTERN DRUM MAKER (CURRENT) USE OF 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 10/04/2016 KURTIS HIGUERA MD, Ot Z79.899 OTHER RETIREMENT (CURRENT) DRUG THERAPY 10/04/2016 KURTIS HIGUERA MD, Ot Z95.0 PRESENCE OF CARDIAC PACEMAKER 10/05/2016 DAYANNA DILL MD Ot B35.3 TINEA PEDIS 10/05/2016 DAYANNA DILL MD Ot I89.0 LYMPHEDEMA, NOT ELSEWHERE CLASSIFIED 10/05/2016 DAYANNA DILL MD Ot M79.604 PAIN IN RIGHT LEG 03/16/2017 DEEPALI TIM DO, Ot I10 ESSENTIAL (PRIMARY) HYPERTENSION 03/16/2017 DEEPALI TIM DO, Ot I25.10 ATHSCL HEART DISEASE OF [place] CORONARY 03/16/2017 DEEPALI TIM DO, Ot R42 DIZZINESS AND GIDDINESS 03/16/2017 DEEPALI TIM DO, Ot S70.01XA CONTUSION OF RIGHT HIP, INITIAL ENCOUNTE 03/16/2017 DEEPALI TIM DO, Ot W01.0XXA FALL SAME LEV FROM SLIP/TRIP W/O STRIKE 03/16/2017 DEEPALI TIM DO, Ot Y92.[address] [facility] [address] IN [facility] NON-INSTITUT (PRIVATE 03/16/2017 DEEPALI TIM DO, Ot Y99.8 OTHER EXTERNAL CAUSE STATUS 03/16/2017 DEEPALI TIM DO, Ot Z79.82 PATTERN DRUM MAKER (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) USE OF ASPIRIN 03/16/2017 DEEPALI TIM DO, Ot Z79.899 OTHER RETIREMENT (CURRENT) DRUG THERAPY 03/16/2017 DEEPALI TIM DO, Ot Z87.891 PERSONAL HISTORY OF NICOTINE DEPENDENCE 03/16/2017 DEEPALI TIM DO, Ot Z95.0 PRESENCE OF CARDIAC PACEMAKER 03/16/2017 DEEPALI TIM DO, Ot Z95.5 PRESENCE OF CORONARY ANGIOPLASTY IMPLANT 03/19/2017 DEEPALI TIM DO Ot I10 ESSENTIAL (PRIMARY) HYPERTENSION 03/19/2017 DEEPALI TIM DO, Ot I25.10 ATHSCL HEART DISEASE OF [place] CORONARY 03/19/2017 DEEPALI TIM DO, Ot R42 DIZZINESS AND GIDDINESS 03/19/2017 DEEPALI TIM DO, Ot S70.01XA CONTUSION OF RIGHT HIP, INITIAL ENCOUNTE 03/19/2017 DEEPALI TIM DO, Ot W01.0XXA FALL SAME LEV FROM SLIP/TRIP W/O STRIKE 03/19/2017 DEEPALI TIM DO, Ot Y92.[address] [facility] IN [facility] 03/19/2017 DEEPALI TIM DO, Ot Y99.8 OTHER EXTERNAL CAUSE STATUS 03/19/2017 DEEPALI TIM DO, Ot Z79.82 RETIREMENT (CURRENT) USE OF ASPIRIN 03/19/2017 DEEPALI TIM DO, Ot Z79.899 OTHER PATTERN DRUM MAKER (CURRENT) DRUG THERAPY 03/19/2017 DEEPALI TIM DO, Ot Z87.891 PERSONAL HISTORY OF NICOTINE DEPENDENCE 03/19/2017 DEEPALI TIM DO, Ot Z95.0 PRESENCE OF CARDIAC PACEMAKER 03/19/2017 DEEPALI TIM DO, Ot Z95.5 PRESENCE OF CORONARY ANGIOPLASTY IMPLANT 03/22/2017 DEEPALI TIM DO Ot I10 ESSENTIAL (PRIMARY) HYPERTENSION 03/22/2017 DEEPALI TIM DO, Ot I25.10 ATHSCL HEART DISEASE OF [place] CORONARY 03/22/2017 DEEPALI TIM DO, Ot R42 DIZZINESS AND GIDDINESS 03/22/2017 DEEPALI TIM DO, Ot S70.01XA CONTUSION OF RIGHT HIP, INITIAL ENCOUNTE 03/22/2017 DEEPALI TIM DO, Ot W01.0XXA FALL SAME LEV FROM SLIP/TRIP W/O STRIKE 03/22/2017 DEEPALI TIM DO Ot Y92.[address] IN [facility] NON-INSTITUT (PRIVATE 03/22/2017 DEEPALI TIM DO Stuart Y99.8 OTHER EXTERNAL CAUSE STATUS 03/22/2017 DEEPALI TIM DO Ot Z79.82 RETIREMENT (CURRENT) USE OF ASPIRIN 03/22/2017 DEEPALI TIM DO Ot Z79.899 OTHER RETIREMENT (CURRENT) DRUG THERAPY 03/22/2017 DEEPALI TIM DO Stuart Z87.891 PERSONAL HISTORY OF NICOTINE DEPENDENCE 03/22/2017 DEEPALI TIM DO Renetta Ot Z95.0 PRESENCE OF CARDIAC PACEMAKER 03/22/2017 GLENROY FRANCO DEEPALI Jackson Ot Z95.5 PRESENCE OF CORONARY ANGIOPLASTY IMPLANT Procedures Code Description [place] [address] ECHO EXAMINATION PROCEDURE 01/15/2013 84762 NUCLEAR STRESS TESTING 01/15/2013 G0127 TRIM NAIL(S) 01/15/2013 36940 HEART CATH 02/05/2013 Cardiolog Tanisha Chapa 03/07/2013 34806 OXIMETRY 10/03/2013 16218 NUCLEAR STRESS TESTING 10/03/2013 95006 ECHO 2D 10/03/2013 G0127 TRIM NAIL(S) 01/16/2014 G0127 TRIM NAIL(S) 02/18/2014 10648 INFLUENZA A & B (IN-HOUSE) 12/10/2014 60761 NEBULIZER TREATMENT 12/12/2014 93885 OXIMETRY 12/12/2014 69010 ROUTINE VENIPUNCTURE 01/14/2015 50047 LIPID PANEL 01/14/2015 85621 CBC 01/14/2015 3072330 GFR CALC (RESULT ONLY) 01/14/2015 38623 CMP 01/14/2015 38200 TSH 01/14/2015 Results Test Result Range Complete blood count (CBC) with automated white blood cell (WBC) differential - 08/28/16 10:35 Blood leukocytes automated count (number/volume) 6.2 10*3/uL 4.3-11.0 Blood erythrocytes automated count (number/volume) 4.98 10*6/uL 4.35-5.85 Venous blood hemoglobin measurement (mass/volume) 15.8 g/dL 13.3-17.7 Blood hematocrit (volume fraction) 46 % 40-54 Automated erythrocyte mean corpuscular volume 92 [foz_us] 80-99 Automated erythrocyte mean corpuscular hemoglobin (mass per erythrocyte) 32 pg 25-34 Automated erythrocyte mean corpuscular hemoglobin concentration measurement ( mass/volume) 34 g/dL 32-36 Automated erythrocyte distribution width ratio 12.2 % 10.0-14.5 Automated blood platelet count (count/volume) 171 10*3/uL 130-400 Automated blood platelet mean volume measurement 11.3 [foz_us] 7.4-10.4 Automated blood neutrophils/100 leukocytes 47 % 42-75 Automated blood lymphocytes/100 leukocytes 36 % 12-44 Blood monocytes/100 leukocytes 12 % 0-12 Automated blood eosinophils/100 leukocytes 4 % 0-10 Automated blood basophils/100 leukocytes 1 % 0-10 Blood neutrophils automated count (number/volume) 2.9 10*3 1.8-7.8 Blood lymphocytes automated count (number/volume) 2.3 10*3 1.0-4.0 Blood monocytes automated count (number/volume) 0.8 10*3 0.0-1.0 Automated eosinophil count 0.3 10*3/uL 0.0-0.3 Automated blood basophil count (count/volume) 0.0 10*3/uL 0.0-0.1 Comprehensive metabolic panel - 08/28/16 10:35 Serum or plasma sodium measurement (moles/volume) 130 mmol/L 135-145 Serum or plasma potassium measurement (moles/volume) 3.9 mmol/L 3.6-5.0 Serum or plasma chloride measurement (moles/volume) 100 mmol/L 98-107 Carbon dioxide 19 mmol/L 21-32 Serum or plasma anion gap determination (moles/volume) 11 mmol/L 5-14 Serum or plasma urea nitrogen measurement (mass/volume) 8 mg/dL 7-18 Serum or plasma creatinine measurement (mass/volume) 1.49 mg/dL 0.60-1.30 Serum or plasma urea nitrogen/creatinine mass ratio 5 NRG Serum or plasma creatinine measurement with calculation of estimated glomerular filtration rate 46 NRG Serum or plasma glucose measurement (mass/volume) 228 mg/dL 70-105 Serum or plasma calcium measurement (mass/volume) 8.8 mg/dL 8.5-10.1 Serum or plasma total bilirubin measurement (mass/volume) 0.9 mg/dL 0.1-1.0 Serum or plasma alkaline phosphatase measurement (enzymatic activity/volume) 101 U/L 40-136 Serum or plasma aspartate aminotransferase measurement (enzymatic activity/ volume) 17 U/L 5-34 Serum or plasma alanine aminotransferase measurement (enzymatic activity/volume ) 15 U/L 0-55 Serum or plasma protein measurement (mass/volume) 6.5 g/dL 6.4-8.2 Serum or plasma albumin measurement (mass/volume) 3.5 g/dL 3.2-4.5 Magnesium - 08/28/16 10:35 Magnesium 2.5 mg/dL 1.8-2.4 Serum or plasma troponin i.cardiac measurement (mass/volume) - 08/28/16 10:35 Serum or plasma troponin i.cardiac measurement (mass/volume) < ng/ mL <0.30 Serum or plasma C reactive protein measurement (mass/volume) - 08/28/16 10:35 Serum or plasma C reactive protein measurement (mass/volume) 0.97 mg /dL 0.00-0.50 Serum or plasma lithium measurement (moles/volume) - 08/28/16 10:35 BNP level 57.6 pg/mL <100.0 Complete blood count (CBC) with automated white blood cell (WBC) differential - 09/11/16 18:00 Blood leukocytes automated count (number/volume) 5.0 10*3/uL 4.3-11.0 Blood erythrocytes automated count (number/volume) 4.78 10*6/uL 4.35-5.85 Venous blood hemoglobin measurement (mass/volume) 15.0 g/dL 13.3-17.7 Blood hematocrit (volume fraction) 44 % 40-54 Automated erythrocyte mean corpuscular volume 92 [foz_us] 80-99 Automated erythrocyte mean corpuscular hemoglobin (mass per erythrocyte) 31 pg 25-34 Automated erythrocyte mean corpuscular hemoglobin concentration measurement ( mass/volume) 34 g/dL 32-36 Automated erythrocyte distribution width ratio 12.2 % 10.0-14.5 Automated blood platelet count (count/volume) 155 10*3/uL 130-400 Automated blood platelet mean volume measurement 10.9 [foz_us] 7.4-10.4 Automated blood neutrophils/100 leukocytes 49 % 42-75 Automated blood lymphocytes/100 leukocytes 29 % 12-44 Blood monocytes/100 leukocytes 17 % 0-12 Automated blood eosinophils/100 leukocytes 5 % 0-10 Automated blood basophils/100 leukocytes 1 % 0-10 Blood neutrophils automated count (number/volume) 2.4 10*3 1.8-7.8 Blood lymphocytes automated count (number/volume) 1.4 10*3 1.0-4.0 Blood monocytes automated count (number/volume) 0.9 10*3 0.0-1.0 Automated eosinophil count 0.2 10*3/uL 0.0-0.3 Automated blood basophil count (count/volume) 0.1 10*3/uL 0.0-0.1 Whole blood basic metabolic panel - 09/11/16 18:00 Serum or plasma sodium measurement (moles/volume) 128 mmol/L 135-145 Serum or plasma potassium measurement (moles/volume) 3.9 mmol/L 3.6-5.0 Serum or plasma chloride measurement (moles/volume) 98 mmol/L 98-107 Carbon dioxide 22 mmol/L 21-32 Serum or plasma anion gap determination (moles/volume) 8 mmol/L 5-14 Serum or plasma urea nitrogen measurement (mass/volume) 13 mg/dL 7-18 Serum or plasma creatinine measurement (mass/volume) 1.55 mg/dL 0.60-1.30 Serum or plasma urea nitrogen/creatinine mass ratio 8 NRG Serum or plasma creatinine measurement with calculation of estimated glomerular filtration rate 44 NRG Serum or plasma glucose measurement (mass/volume) 178 mg/dL 70-105 Serum or plasma calcium measurement (mass/volume) 8.6 mg/dL 8.5-10.1 Bacterial blood culture - 09/11/16 18:00 Bacterial blood culture NG NR Blood lactic acid measurement (moles/volume) - 09/11/16 18:35 Blood lactic acid measurement (moles/volume) 2.4 mmol/L 0.5-2.0 Bacterial blood culture - 09/11/16 18:35 FREE TEXT EXTERNAL SEE COMMENTS NRG QUANTITY OF GROWTH Isolated NR Bacterial blood culture [id number] [facility] Serum or plasma lactate measurement (moles/volume) - 09/11/16 20:45 Serum or plasma lactate measurement (moles/volume) 2.2 mmol/L 0.5-2.0 Complete blood count (CBC) with automated white blood cell (WBC) differential - 10/03/16 21:55 Blood leukocytes automated count (number/volume) 6.3 10*3/uL 4.3-11.0 Blood erythrocytes automated count (number/volume) 4.87 10*6/uL 4.35-5.85 Venous blood hemoglobin measurement (mass/volume) 15.2 g/dL 13.3-17.7 Blood hematocrit (volume fraction) 44 % 40-54 Automated erythrocyte mean corpuscular volume 90 [foz_us] 80-99 Automated erythrocyte mean corpuscular hemoglobin (mass per erythrocyte) 31 pg 25-34 Automated erythrocyte mean corpuscular hemoglobin concentration measurement ( mass/volume) 35 g/dL 32-36 Automated erythrocyte distribution width ratio 12.7 % 10.0-14.5 Automated blood platelet count (count/volume) 161 10*3/uL 130-400 Automated blood platelet mean volume measurement 10.6 [foz_us] 7.4-10.4 Automated blood neutrophils/100 leukocytes 45 % 42-75 Automated blood lymphocytes/100 leukocytes 32 % 12-44 Blood monocytes/100 leukocytes 12 % 0-12 Automated blood eosinophils/100 leukocytes 9 % 0-10 Automated blood basophils/100 leukocytes 2 % 0-10 Blood neutrophils automated count (number/volume) 2.8 10*3 1.8-7.8 Blood lymphocytes automated count (number/volume) 2.0 10*3 1.0-4.0 Blood monocytes automated count (number/volume) 0.7 10*3 0.0-1.0 Automated eosinophil count 0.6 10*3/uL 0.0-0.3 Automated blood basophil count (count/volume) 0.1 10*3/uL 0.0-0.1 Comprehensive metabolic panel - 10/03/16 21:55 Serum or plasma sodium measurement (moles/volume) 132 mmol/L 135-145 Serum or plasma potassium measurement (moles/volume) 4.0 mmol/L 3.6-5.0 Serum or plasma chloride measurement (moles/volume) 103 mmol/L 98-107 Carbon dioxide 18 mmol/L 21-32 Serum or plasma anion gap determination (moles/volume) 11 mmol/L 5-14 Serum or plasma urea nitrogen measurement (mass/volume) 10 mg/dL 7-18 Serum or plasma creatinine measurement (mass/volume) 1.48 mg/dL 0.60-1.30 Serum or plasma urea nitrogen/creatinine mass ratio 7 NRG Serum or plasma creatinine measurement with calculation of estimated glomerular filtration rate 46 NRG Serum or plasma glucose measurement (mass/volume) 207 mg/dL 70-105 Serum or plasma calcium measurement (mass/volume) 8.6 mg/dL 8.5-10.1 Serum or plasma total bilirubin measurement (mass/volume) 0.9 mg/dL 0.1-1.0 Serum or plasma alkaline phosphatase measurement (enzymatic activity/volume) 105 U/L 40-136 Serum or plasma aspartate aminotransferase measurement (enzymatic activity/ volume) 34 U/L 5-34 Serum or plasma alanine aminotransferase measurement (enzymatic activity/volume ) 31 U/L 0-55 Serum or plasma protein measurement (mass/volume) 6.5 g/dL 6.4-8.2 Serum or plasma albumin measurement (mass/volume) 3.4 g/dL 3.2-4.5 Lipase - 10/03/16 21:55 Lipase 63 U/L 8-78 Complete urinalysis with reflex to culture - 10/03/16 23:35 Urine color determination YELLOW NRG Urine clarity determination CLEAR NRG Urine pH measurement by test strip 6 5-9 Specific gravity of urine by test strip 1.020 1.016- 1.022 Urine protein assay by test strip, semi-quantitative 1+ NEGATIVE Urine glucose detection by automated test strip 3+ NEGATIVE Erythrocytes detection in urine sediment by light microscopy NEGATIVE NEGATIVE Urine ketones detection by automated test strip NEGATIVE NEGATIVE Urine nitrite detection by test strip NEGATIVE NEGATIVE Urine total bilirubin detection by test strip NEGATIVE NEGATIVE Urine urobilinogen measurement by automated test strip (mass/volume) 4 mg/dL NORMAL Urine leukocyte esterase detection by dipstick NEGATIVE NEGATIVE Automated urine sediment erythrocyte count by microscopy (number/high power field) NONE NRG Automated urine sediment leukocyte count by microscopy (number/high power field ) NONE NRG Bacteria detection in urine sediment by light microscopy NEGATIVE NRG Squamous epithelial cells detection in urine sediment by light microscopy 0-2 NRG Crystals detection in urine sediment by light microscopy NONE NRG Casts detection in urine sediment by light microscopy NONE NRG Mucus detection in urine sediment by light microscopy SMALL NRG Complete urinalysis with reflex to culture NO NRG Encounters ACCT No. Visit Date/Time Discharge Status Pt. Type Provider Facility Loc./Unit Complaint [id number] 01/14/2015 13:01:00 01/14/2015 23:59:59 [facility] Outpatient SU HOPKINS APRN [id number] 12/10/2014 18:32:00 12/10/2014 23:59:59 [facility] Outpatient SU HOPKINS APRN [id number] 11/02/2014 09:41:00 11/02/2014 23:59:59 CLS Outpatient SU HOPKINS APRN [id number] 05/04/2014 08:44:00 05/04/2014 23:59:59 CLS Outpatient SU HOPKINS APRN [id number] 02/18/2014 11:42:00 02/18/2014 23:59:59 CLS Outpatient DEEPALI HENDRICKS APRN Justo [id number] 01/16/2014 10:41:00 01/16/2014 23:59:59 CLS Outpatient ELADIO HANSENNDEEPALI Justo [id number] 10/03/2013 08:16:00 10/03/2013 23:59:59 CLS Outpatient ANGELINA FRANCO SOLIS Nathalia [id number] 10/03/2013 08:16:00 10/03/2013 23:59:59 CLS Outpatient SOLIS ALFARO DO [id number] 03/05/2013 10:28:00 03/05/2013 23:59:59 CLS Outpatient ANGELINA FRANCO SOLIS K [id number] 02/12/2013 12:05:00 02/12/2013 23:59:59 CLS Outpatient DEEPALI HENDRICKS APRN Justo [id number] 02/05/2013 08:31:00 02/05/2013 23:59:59 CLS Outpatient [id number] 01/15/2013 09:37:00 01/15/2013 23:59:59 CLS Outpatient ELADIO HANSENSkyler DEEPALI Justo [id number] 11/14/2012 14:10:00 11/14/2012 23:59:59 [place] [id number] 04/02/2012 10:06:00 04/02/2012 23:59:59 CLS Outpatient [id number] 03/16/2017 18:59:00 03/16/2017 20:09:00 DIS Emergency DEEPALI TIM DO [facility] ER DIZZINESS [id number] 10/03/2016 21:45:00 10/04/2016 00:13:00 DIS Emergency KURTIS HIGUERA MD [facility] ER STOMACH PAIN [id number] 09/28/2016 14:02:00 09/28/2016 16:00:00 DIS Outpatient SUSAN JENSEN APRN [facility] WOUNDCARE [id number] 09/14/2016 16:24:00 09/14/2016 23:59:59 CLS Outpatient DAYANNA DILL MD [facility] RAD RT LEG PAIN [id number] 09/11/2016 19:00:00 09/12/2016 18:00:00 DIS Inpatient ADALBERTO DORADO, PETER Tovar [facility] 4TH CELLULITIS OF BLE, GENERAL DEBILITY [id number] 08/28/2016 09:53:00 08/28/2016 12:22:00 DIS Emergency DENVER DORADO, JOSÉ Kemp [facility] ER FALL [id number] 12/12/2015 18:29:00 12/12/2015 21:41:00 DIS Emergency KALEN DORADO, KURTIS Jackson [facility] ER FALL [id number] 04/28/2015 12:08:00 04/28/2015 23:59:59 CLS Outpatient TANISHA CHAPA MD [facility] CARD [id number] 12/05/2014 17:21:00 12/05/2014 20:24:00 DIS Emergency DENVER DORADO, JOSÉ Kemp [facility] ER [id number] 09/18/2014 09:28:00 09/18/2014 23:59:59 CLS Outpatient NEY DAY [facility] CARD [id number] 03/02/2014 09:37:00 03/02/2014 23:59:59 CLS Outpatient NEY DAY [facility] RAD [id number] 10/20/2013 08:26:00 10/20/2013 23:59:59 CLS Outpatient TANISHA CHAPA MD [facility] RAD [id number] 10/13/2013 07:16:00 10/13/2013 23:59:59 CLS Outpatient NEY DAY [facility] CARD [id number] 12/05/2014 17:20:00 Document Registration [id number] 12/05/2014 17:20:00 Document Registration [id number] 12/05/2014 17:20:00 Document Registration [id number] 12/05/2014 17:20:00 Document Registration [id number] 02/17/2013 12:19:00 Document Registration [id number] 01/31/2013 11:45:00 Document Registration [id number] 01/23/2013 08:21:00 Document Registration [id number] 08/01/2011 09:20:00 Document Registration [id number] 06/16/2011 07:30:00 Document Registration [id number] 01/27/2011 10:49:00 Document Registration [id number] 08/25/2010 08:52:00 Document Registration [id number] 06/13/2010 07:54:00 Document Registration [id number] 04/20/2010 09:34:00 Document Registration
--- OUTSIDE RECORDS SUMMARY | 2018-02-03 03:32 | XMS REPORT | Continuity of Care Document ---
Author Author [facility] Address Unknown Phone Unavailable Allergies Active Description [...] CORONARY ATHEROSCLEROSIS OF UNSPECIFIED TYPE OF VESSEL, [place] OR GRAFT 06/07/2010 BENIGNO MCDONOUGH MD V58.69 LONG-TERM (CURRENT) USE OF OTHER MEDICATIONS 06/07/2010 DEEPALI HENDRICKS APRN 300.9 UNSPECIFIED NONPSYCHOTIC MENTAL DISORDER 06/07/2010 DEEPALI HENDRICKS APRN 414.00 CORONARY ATHEROSCLEROSIS OF UNSPECIFIED TYPE OF VESSEL, [place] OR GRAFT 06/07/2010 DEEPALI HENDRICKS APRN V58.69 LONG-TERM (CURRENT) USE OF OTHER MEDICATIONS 06/07/2010 300.9 UNSPECIFIED NONPSYCHOTIC MENTAL DISORDER 06/07/2010 414.00 CORONARY ATHEROSCLEROSIS OF UNSPECIFIED TYPE OF VESSEL, [place] OR GRAFT 06/07/2010 V58.69 LONG-TERM ( CURRENT) USE OF OTHER MEDICATIONS 06/07/2010 DEEPALI HENDRICKS APRN 300.9 UNSPECIFIED NONPSYCHOTIC MENTAL DISORDER 06/07/2010 DEEPALI HENDRICKS APRN 414.00 CORONARY ATHEROSCLEROSIS OF UNSPECIFIED TYPE OF VESSEL, [place] OR GRAFT 06/07/2010 DEEPALI HENDRICKS APRN V58.69 LONG-TERM (CURRENT) USE OF OTHER MEDICATIONS 06/07/2010 ALFARO DO, SOLIS K 300.9 UNSPECIFIED NONPSYCHOTIC MENTAL DISORDER 06/07/2010 ALFARO DO, SOLIS K 414.00 CORONARY ATHEROSCLEROSIS OF UNSPECIFIED TYPE OF VESSEL, [place] OR GRAFT 06/07/2010 ALFARO DO, SOLIS K V58.69 LONG-TERM (CURRENT) USE OF OTHER MEDICATIONS 06/07/2010 ALFARO DO, SOLIS K 300.9 UNSPECIFIED NONPSYCHOTIC MENTAL DISORDER 06/07/2010 ALFARO DO, SOLIS K 414.00 CORONARY ATHEROSCLEROSIS OF UNSPECIFIED TYPE OF VESSEL, [place] OR GRAFT 06/07/2010 ALFARO DO, SOLIS K V58.69 LONG-TERM (CURRENT) USE OF OTHER MEDICATIONS 06/07/2010 ALFARO DO, SOILS K 300.9 UNSPECIFIED NONPSYCHOTIC MENTAL DISORDER 06/07/2010 ALFARO DO, SOLIS K 414.00 CORONARY ATHEROSCLEROSIS OF UNSPECIFIED TYPE OF VESSEL, [place] OR GRAFT 06/07/2010 ALFARO DO SOLIS K V58.69 LONG-TERM (CURRENT) USE OF OTHER MEDICATIONS 06/07/2010 DEEPALI HENDRICKS APRN 300.9 UNSPECIFIED NONPSYCHOTIC MENTAL DISORDER 06/07/2010 DEEPALI HENDRICKS APRN 414.00 CORONARY ATHEROSCLEROSIS OF UNSPECIFIED TYPE OF VESSEL, [place] OR GRAFT 06/07/2010 DEEPALI HENDRICKS APRN V58.69 LONG-TERM (CURRENT) USE OF OTHER MEDICATIONS 06/07/2010 DEEPALI HENDRICKS APRN 300.9 UNSPECIFIED NONPSYCHOTIC MENTAL DISORDER 06/07/2010 DEEPALI HENDRICKS APRN 414.00 CORONARY ATHEROSCLEROSIS OF UNSPECIFIED TYPE OF VESSEL, [place] OR GRAFT 06/07/2010 DEEPALI HENDRICKS APRN V58.69 LONG-TERM (CURRENT) USE OF OTHER MEDICATIONS 06/07/2010 300.9 UNSPECIFIED NONPSYCHOTIC MENTAL DISORDER 06/07/2010 414.00 CORONARY ATHEROSCLEROSIS OF UNSPECIFIED TYPE OF VESSEL, [place] OR GRAFT 06/07/2010 V58.69 LONG-TERM ( CURRENT) USE OF OTHER MEDICATIONS 06/07/2010 SU HOPKINS APRN S 300.9 UNSPECIFIED NONPSYCHOTIC MENTAL DISORDER 06/07/2010 SU HOPKINS APRN S 414.00 CORONARY ATHEROSCLEROSIS OF UNSPECIFIED TYPE OF VESSEL, [place] OR GRAFT 06/07/2010 SU HOPKINS APRN S V58.69 LONG-TERM (CURRENT) USE OF OTHER MEDICATIONS 06/07/2010 KELLIE TRANSITION NURSE, SU S 300.9 UNSPECIFIED NONPSYCHOTIC MENTAL DISORDER 06/07/2010 KELLIE TRANSITION NURSE, SU S 414.00 CORONARY ATHEROSCLEROSIS OF UNSPECIFIED TYPE OF VESSEL, [place] OR GRAFT 06/07/2010 KELLIE TRANSITION NURSE, SU S V58.69 LONG-TERM (CURRENT) USE OF OTHER MEDICATIONS 06/07/2010 KELLIE TRANSITION NURSE, SU S 300.9 UNSPECIFIED NONPSYCHOTIC MENTAL DISORDER 06/07/2010 KELLIE TRANSITION NURSE, SU S 414.00 CORONARY ATHEROSCLEROSIS OF UNSPECIFIED TYPE OF VESSEL, [place] OR GRAFT 06/07/2010 KELLIE TRANSITION NURSE, SU S V58.69 LONG-TERM (CURRENT) USE OF OTHER MEDICATIONS 06/07/2010 KELLIE TRANSITION NURSE, SU S 300.9 UNSPECIFIED NONPSYCHOTIC MENTAL DISORDER 06/07/2010 KELLIE TRANSITION NURSE, SU S 414.00 CORONARY ATHEROSCLEROSIS OF UNSPECIFIED TYPE OF VESSEL, [place] OR GRAFT 06/07/2010 PONCHO HOPKINS APRNNDA S [...] 06/15/2010 780.09 OR DELERIUM NOS 06/15/2010 KELLIE TRANSITION NURSE, SU S 300.00 AN ANXIETY UNSPEC 06/15/2010 KELLIE TRANSITION NURSE, SU S 780.09 OR DELERIUM NOS 06/15/2010 KELLIE TRANSITION NURSE, SU S 300.00 AN ANXIETY UNSPEC 06/15/2010 KELLIE TRANSITION NURSE, SU S 780.09 OR DELERIUM NOS 06/15/2010 KELLIE TRANSITION NURSE, SU S 300.00 AN ANXIETY UNSPEC 06/15/2010 KELLIE TRANSITION NURSE, SU S 780.09 OR DELERIUM NOS 06/15/2010 KELLIE FRANCIS, SU S 300.00 AN ANXIETY UNSPEC 06/15/2010 KELLIE TRANSITION NURSE, SU S 780.09 OR DELERIUM NOS [...] 272.4 HYPERLIPIDEMIA 06/07/2011 272.4 HYPERLIPIDEMIA 06/07/2011 KELLIE TRANSITION NURSE, SU S 272.4 HYPERLIPIDEMIA 06/07/2011 KELLIE TRANSITION NURSE, SU S 272.4 HYPERLIPIDEMIA 06/07/2011 KELLIE TRANSITION NURSE, SU S 272.4 HYPERLIPIDEMIA 06/07/2011 KELLIE TRANSITION NURSE, SU S 272.4 HYPERLIPIDEMIA 08/01/2011 Ot [...] SU S 786.50 CHEST PAIN 02/05/2013 KELLIE TRANSITION NURSE, SU S 786.50 CHEST PAIN 02/05/2013 KELLIE TRANSITION NURSE, SU S 786.50 CHEST PAIN 02/05/2013 KELLIE TRANSITION NURSE, SU S 786.50 CHEST PAIN 02/19/2013 [...] DEEPALI HENDRICKS APRN 425.4 CARDIOMYOPHATHY 03/05/2013 KELLIE TRANSITION NURSE, SU S 425.4 CARDIOMYOPHATHY 03/05/2013 KELLIE TRANSITION NURSE, SU S 425.4 CARDIOMYOPHATHY 03/05/2013 KELLIE TRANSITION NURSE, SU S 425.4 CARDIOMYOPHATHY 03/05/2013 KELLIE TRANSITION NURSE, SU S 425.4 CARDIOMYOPHATHY 10/03/2013 ALFARO DO SOLIS K 428.0 CONGESTIVE HEART FAILURE, UNSPECIFIED 10/03/2013 ALFARO DO SOLIS K 428.0 CONGESTIVE HEART FAILURE, UNSPECIFIED 10/03/2013 DEEPALI HENDRICKS APRN T 428.0 CONGESTIVE HEART FAILURE, UNSPECIFIED 10/03/2013 DEEPALI HENDRICKS APRN 428.0 CONGESTIVE HEART FAILURE, UNSPECIFIED 10/03/2013 KELLIE TRANSITION NURSE, SU S 428.0 CONGESTIVE HEART FAILURE, UNSPECIFIED 10/03/2013 KELLIE TRANSITION NURSE, SU S 428.0 CONGESTIVE HEART FAILURE, UNSPECIFIED 10/03/2013 KELLIE TRANSITION NURSE, SU S 428.0 CONGESTIVE HEART FAILURE, UNSPECIFIED 10/03/2013 KELLIE TRANSITION NURSE, SU S 428.0 CONGESTIVE HEART FAILURE, [...] IMMUNIZATION 08/28/2016 JOSÉ GOFF MD, Ot Z79.82 CORRECTION (CURRENT) USE OF ASPIRIN 08/28/2016 JOSÉ GOFF [...] Y99.8 OTHER EXTERNAL CAUSE STATUS 08/29/2016 JOSÉ OGFF MD, Ot Z23 ENCOUNTER FOR IMMUNIZATION 08/29/2016 JOSÉ GOFF MD, Ot Z79.82 MARKET RESEARCH SPECIALIST (CURRENT) USE OF ASPIRIN 08/29/2016 JOSÉ GOFF MD, Ot Z95.0 PRESENCE OF CARDIAC PACEMAKER 08/29/2016 JOSÉ GOFF MD, Ot Z95.5 PRESENCE OF CORONARY ANGIOPLASTY IMPLANT 08/29/2016 JOSÉ GOFF MD, Ot Z98.1 ARTHRODESIS STATUS 09/12/2016 PETER GLOVER MD, Ot I10 ESSENTIAL (PRIMARY) HYPERTENSION 09/12/2016 PETER GLOVER MD, Ot I25.10 ATHSCL HEART DISEASE OF [place] CORONARY 09/12/2016 PETER GLOVER MD, Ot I25.2 OLD MYOCARDIAL INFARCTION 09/12/2016 PTEER GLOVER MD, Ot L03.115 CELLULITIS OF RIGHT [...] MD Ot I25.10 ATHSCL HEART DISEASE OF [place] CORONARY 09/12/2016 PETER GLOVER MD Ot I25.2 [...] PAIN 10/04/2016 KURTIS HIGUERA MD, Ot Z79.82 MARKET RESEARCH SPECIALIST (CURRENT) USE OF ASPIRIN 10/04/2016 KURTIS HIGUERA MD, Ot Z79.899 OTHER MARKET RESEARCH SPECIALIST (CURRENT) DRUG THERAPY 10/04/2016 KURTIS HIGUERA MD Ot Z95.0 PRESENCE OF CARDIAC PACEMAKER 10/04/2016 KURTIS HIGUERA MD Ot F17.220 NICOTINE DEPENDENCE, CHEWING TOBACCO, UN 10/04/2016 KURTIS HIGUERA MD, Ot I10 ESSENTIAL (PRIMARY) HYPERTENSION 10/04/2016 KURTIS HIGUERA MD, Ot K59.00 CONSTIPATION, UNSPECIFIED 10/04/2016 KURTIS HIGUERA MD, Ot R10.13 EPIGASTRIC PAIN 10/04/2016 KURTIS HIGUERA MD, Ot Z79.82 MARKET RESEARCH SPECIALIST (CURRENT) USE OF ASPIRIN 10/04/2016 KURTIS HIGUERA MD, Ot Z79.899 OTHER CORRECTION (CURRENT) DRUG THERAPY 10/04/2016 KURTIS HIGUERA MD, Ot Z95.0 PRESENCE OF CARDIAC PACEMAKER 10/05/2016 DAYANNA DILL MD Ot B35.3 TINEA PEDIS 10/05/2016 DAYANNA DILL MD Ot I89.0 LYMPHEDEMA, NOT ELSEWHERE CLASSIFIED 10/05/2016 DAYANNA DILL MD Ot M79.604 PAIN IN RIGHT LEG 03/16/2017 DEEPALI TIM DO, Ot I10 ESSENTIAL (PRIMARY) HYPERTENSION 03/16/2017 DEEPALI TIM DO, Ot I25.10 ATHSCL HEART DISEASE OF [place] CORONARY 03/16/2017 DEEPALI TIM DO, Ot R42 DIZZINESS AND GIDDINESS 03/16/2017 DEEPALI TIM DO, Ot S70.01XA CONTUSION OF RIGHT HIP, INITIAL ENCOUNTE 03/16/2017 DEEPALI TIM DO, Ot W01.0XXA FALL SAME LEV FROM SLIP/TRIP W/O STRIKE 03/16/2017 DEEPALI TIM DO, Ot Y92.[address] [facility] [address] IN [facility] NON-INSTIT[facility] (PRIVATE 03/16/2017 DEEPALI TIM DO, Ot Y99.8 OTHER EXTERNAL CAUSE STATUS 03/16/2017 DEEPALI TIM DO, Ot Z79.82 MARKET RESEARCH SPECIALIST (CURRENT) USE OF ASPIRIN 03/16/2017 DEEPALI TIM DO, Ot Z79.899 OTHER CORRECTION (CURRENT) DRUG THERAPY 03/16/2017 DEEPALI TIM DO, Ot Z87.891 PERSONAL HISTORY OF NICOTINE DEPENDENCE 03/16/2017 DEEPALI TIM DO, Ot Z95.0 PRESENCE OF CARDIAC PACEMAKER 03/16/2017 DEEPALI TIM DO, Ot Z95.5 PRESENCE OF CORONARY ANGIOPLASTY IMPLANT 03/19/2017 DEEPALI TIM DO Ot I10 ESSENTIAL (PRIMARY) HYPERTENSION 03/19/2017 DEEPALI TIM DO, Ot I25.10 ATHSCL HEART DISEASE OF [place] CORONARY 03/19/2017 DEEPALI TIM DO, Ot R42 DIZZINESS AND GIDDINESS 03/19/2017 DEEPALI TIM DO, Ot S70.01XA CONTUSION OF RIGHT HIP, INITIAL ENCOUNTE 03/19/2017 DEEPALI TIM DO, Ot W01.0XXA FALL SAME LEV FROM SLIP/TRIP W/O STRIKE 03/19/2017 DEEPALI TIM DO, Ot Y92.[address] [facility] [address] IN [facility] NON[facility] 03/19/2017 DEEPALI TIM DO, Ot Y99.8 OTHER EXTERNAL CAUSE STATUS 03/19/2017 DEEPALI TIM DO, Ot Z79.82 CORRECTION (CURRENT) USE OF ASPIRIN 03/19/2017 DEEPALI TIM DO, Ot Z79.899 OTHER MARKET RESEARCH SPECIALIST (CURRENT) DRUG THERAPY 03/19/2017 DEEPALI TIM DO, Ot Z87.891 PERSONAL HISTORY OF NICOTINE DEPENDENCE 03/19/2017 DEEPALI TIM DO, Ot Z95.0 PRESENCE OF CARDIAC PACEMAKER 03/19/2017 DEEPALI TIM DO, Ot Z95.5 PRESENCE OF CORONARY ANGIOPLASTY IMPLANT 03/22/2017 DEEPALI TIM DO Ot I10 ESSENTIAL (PRIMARY) HYPERTENSION 03/22/2017 DEEPALI TIM DO, Ot I25.10 ATHSCL HEART DISEASE OF [place] CORONARY 03/22/2017 DEEPALI TIM DO, Ot R42 DIZZINESS AND GIDDINESS 03/22/2017 DEEPALI TIM DO, Ot S70.01XA CONTUSION OF RIGHT HIP, INITIAL ENCOUNTE 03/22/2017 DEEPALI TIM DO, Ot W01.0XXA FALL SAME LEV FROM SLIP/TRIP W/O STRIKE 03/22/2017 DEEPALI TIM DO Ot Y92.[address] IN [facility] NON-INST[facility] (PRIVATE 03/22/2017 DEEPALI TIM DO Stuart Y99.8 OTHER EXTERNAL CAUSE STATUS 03/22/2017 DEEPALI TIM DO Ot Z79.82 CORRECTION (CURRENT) USE OF ASPIRIN 03/22/2017 DEEPALI TIM DO Ot Z79.899 OTHER CORRECTION (CURRENT) DRUG THERAPY 03/22/2017 DEEPALI TIM DO Stuart Z87.891 PERSONAL HISTORY OF NICOTINE DEPENDENCE 03/22/2017 DEEPALI TIM DO Renetta Ot Z95.0 PRESENCE OF CARDIAC PACEMAKER 03/22/2017 GLENROY FRANCO DEEPALI Jackson Ot Z95.5 PRESENCE OF CORONARY ANGIOPLASTY IMPLANT Procedures Code [place] [address] ECHO EXAMINATION PROCEDURE 01/15/2013 00064 NUCLEAR STRESS TESTING 01/15/2013 G0127 TRIM NAIL(S) 01/15/2013 70853 HEART CATH 02/05/2013 Cardiolog Tanisha Chapa 03/07/2013 20669 OXIMETRY 10/03/2013 45584 NUCLEAR STRESS TESTING 10/03/2013 38215 ECHO 2D 10/03/2013 G0127 TRIM NAIL(S) 01/16/2014 G0127 TRIM NAIL(S) 02/18/2014 37109 INFLUENZA A & B (IN-HOUSE) 12/10/2014 08783 NEBULIZER TREATMENT 12/12/2014 14471 OXIMETRY 12/12/2014 09231 ROUTINE VENIPUNCTURE 01/14/2015 47874 LIPID PANEL 01/14/2015 87402 CBC 01/14/2015 8483166 GFR CALC (RESULT ONLY) 01/14/2015 80203 CMP 01/14/2015 30165 TSH 01/14/2015 Results Test Result Range Complete [...] OF GROWTH Isolated NR Bacterial blood culture [id number] [facility] Serum or plasma lactate measurement (moles/volume) - [...] Status Pt. Type Provider Facility Loc./Unit Complaint [id number] 01/14/2015 13:01:00 01/14/2015 23:59:59 [facility] Outpatient SU HOPKINS APRN [id number] 12/10/2014 18:32:00 12/10/2014 23:59:59 [facility] Outpatient SU HOPKINS APRN [id number] 11/02/2014 09:41:00 11/02/2014 23:59:59 C[facility] Outpatient SU HOPKINS APRN [id number] 05/04/2014 08:44:00 05/04/2014 23:59:59 CLS Outpatient SU HOPKINS APRN [id number] 02/18/2014 11:42:00 02/18/2014 23:59:59 CLS Outpatient DEEPALI HENDRICKS APRN Justo [id number] 01/16/2014 10:41:00 01/16/2014 23:59:59 CLS Outpatient ELADIO HANSENNDEEPALI Justo [id number] 10/03/2013 08:16:00 10/03/2013 23:59:59 CLS Outpatient ANGELINA FRANCO SOLIS Nathalia [id number] 10/03/2013 08:16:00 10/03/2013 23:59:59 CLS Outpatient SOLIS ALFARO DO [id number] 03/05/2013 10:28:00 03/05/2013 23:59:59 CLS Outpatient ANGELINA FRANCO SOLIS K [id number] 02/12/2013 12:05:00 02/12/2013 23:59:59 CLS Outpatient DEEPALI HENDRICKS APRN Justo [id number] 02/05/2013 08:31:00 02/05/2013 23:59:59 CLS Outpatient [id number] 01/15/2013 09:37:00 01/15/2013 23:59:59 CLS Outpatient ELADIO HANSENSkyler DEEPALI Justo [id number] 11/14/2012 14:10:00 11/14/2012 23:59:59 [place] [id number] 04/02/2012 10:06:00 04/02/2012 23:59:59 CLS Outpatient [id number] 03/16/2017 18:59:00 03/16/2017 20:09:00 DIS Emergency DEEPALI TIM DO [facility] ER DIZZINESS [id number] 10/03/2016 21:45:00 10/04/2016 00:13:00 DIS Emergency KURTIS HIGUERA MD [facility] ER STOMACH PAIN [id number] 09/28/2016 14:02:00 09/28/2016 16:00:00 DIS Outpatient SUSAN JENSEN APRN [facility] WOUNDCARE [id number] 09/14/2016 16:24:00 09/14/2016 23:59:59 CLS Outpatient DAYANNA DILL MD [facility] RAD RT LEG PAIN [id number] 09/11/2016 19:00:00 09/12/2016 18:00:00 DIS Inpatient ADALBERTO DORADO, PETER Tovar [facility] 4TH CELLULITIS OF BLE, GENERAL DEBILITY [id number] 08/28/2016 09:53:00 08/28/2016 12:22:00 DIS Emergency DENVER DORADO, JOSÉ Kemp [facility] ER FALL [id number] 12/12/2015 18:29:00 12/12/2015 21:41:00 DIS Emergency KALEN DORADO, KURTIS Jackson [facility] ER FALL [id number] 04/28/2015 12:08:00 04/28/2015 23:59:59 CLS Outpatient TANISHA CHAPA MD [facility] CARD [id number] 12/05/2014 17:21:00 12/05/2014 20:24:00 DIS Emergency DENVER DORADO, JOSÉ Kemp [facility] ER [id number] 09/18/2014 09:28:00 09/18/2014 23:59:59 CLS Outpatient NEY DAY [facility] CARD [id number] 03/02/2014 09:37:00 03/02/2014 23:59:59 CLS Outpatient NEY DAY [facility] RAD [id number] 10/20/2013 08:26:00 10/20/2013 23:59:59 CLS Outpatient TANISHA CHAPA MD [facility] RAD [id number] 10/13/2013 07:16:00 10/13/2013 23:59:59 CLS Outpatient NEY DAY [facility] CARD [id number] 12/05/2014 17:20:00 Document Registration [id number] 12/05/2014 17:20:00 Document Registration [id number] 12/05/2014 17:20:00 Document Registration [id number] 12/05/2014 17:20:00 Document Registration [id number] 02/17/2013 12:19:00 Document Registration [id number] 01/31/2013 11:45:00 Document Registration [id number] 01/23/2013 08:21:00 Document Registration [id number] 08/01/2011 09:20:00 Document Registration [id number] 06/16/2011 07:30:00 Document Registration [id number] 01/27/2011 10:49:00 Document Registration [id number] 08/25/2010 08:52:00 Document Registration [id number] 06/13/2010 07:54:00 Document Registration [id number] 04/20/2010 09:34:00 Document Registration
== END 2018-02-02 12:27 | disposition home health service (06) ==
LOC: EDUNIT# 00:03 → ER 00:06 → 4TH 02:00 → UNDOADMOB 02:00 → 4TH 02:33 → UNDODISOB 02-02 15:55
PROVIDERS: ADMIT Pediatrics; ATTEND Pediatrics
DX: R53.81 Other malaise (principal); I13.0 Hypertensive heart and chronic kidney disease with heart failure and stage 1 through stage 4 chronic kidney disease, or unspecified chronic kidney disease; N18.4 Chronic kidney disease, stage 4 (severe); I50.22 Chronic systolic (congestive) heart failure; E11.22 Type 2 diabetes mellitus with diabetic chronic kidney disease; R60.0 Localized edema; D69.6 Thrombocytopenia, unspecified; H10.32 Unspecified acute conjunctivitis, left eye; I25.10 Atherosclerotic heart disease of native coronary artery without angina pectoris; I25.5 Ischemic cardiomyopathy; N28.9 Disorder of kidney and ureter, unspecified; E78.5 Hyperlipidemia, unspecified; F03.90 Unspecified dementia, unspecified severity, without behavioral disturbance, psychotic disturbance, mood disturbance, and anxiety; I65.23 Occlusion and stenosis of bilateral carotid arteries; I25.2 Old myocardial infarction; Z95.810 Presence of automatic (implantable) cardiac defibrillator; W07.XXXA Fall from chair, initial encounter; Z79.82 Long term (current) use of aspirin; Z79.899 Other long term (current) drug therapy
CPT/HCPCS: 36415; 70450; 71045; 80048; 80053; 81000; 82962; 83735; 83880; 84484; 85025; 85379; 85610; 85730; 93005; 93041; 93880; 93970; G0378

== ENCOUNTER → 2018-12-30 | Outpatient (CLI) | payer MEDICARE ==
[~2018-12-30] MED LIST changes: +ASPI-983 PO; +CARV3.122 PO
--- NOTE | 2018-12-30 10:48 | Diagnostic Imaging Report ---
PROCEDURE: US Renal Bilateral. TECHNIQUE: Multiple real-time grayscale images were obtained over the kidneys in various projections bilaterally. INDICATION: Renal disease. Study interpreted in correlation with CT nonenhanced 10/03/2016. The right kidney is 9.6, left 10.7 cm. The urinary bladder had an unremarkable appearance. No solid or cystic renal mass. No hydronephrosis. Some mild cortical thinning, parenchymal echotextures were within normal limits. The renal volumes normal. IMPRESSION: Unobstructed kidneys appeared nonfocal with mild senescent cortical thinning, normal echotexture, normal bladder. No mass, stone or obstruction identified. Dictated by: Dictated on workstation # [id number]
== END ==
LOC: RAD 09:10
PROVIDERS: ATTEND Internal Medicine Nephrology
DX: N18.3 Chronic kidney disease, stage 3 (moderate) (principal); I25.10 Atherosclerotic heart disease of native coronary artery without angina pectoris; Z72.0 Tobacco use
CPT/HCPCS: 76770

== ENCOUNTER 2019-03-12 11:10 | Emergency (ER) | payer OTHER, MEDICARE ==
[~2019-03-12] VITALS: Ht 182.9 cm; Wt 76.2 kg
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
--- NOTE | 2019-03-12 11:24 | NUR ---
FAMILY IN AT THIS TIME, KATHY DÍAZ TO TO SEE PT AND DAUGHTER.
[2019-03-12 11:26] VITALS: BP 137/85
== END 2019-03-12 11:30 | disposition home or self-care (01) ==
LOC: EDUNIT# 11:10 → ER 11:12
DX: M54.5 Low back pain (principal); F03.90 Unspecified dementia, unspecified severity, without behavioral disturbance, psychotic disturbance, mood disturbance, and anxiety; J44.9 Chronic obstructive pulmonary disease, unspecified; I25.10 Atherosclerotic heart disease of native coronary artery without angina pectoris; I25.2 Old myocardial infarction; I10 Essential (primary) hypertension; Z87.820 Personal history of traumatic brain injury; Z95.0 Presence of cardiac pacemaker; Z79.82 Long term (current) use of aspirin; Z87.891 Personal history of nicotine dependence; V49.50XA Passenger injured in collision with unspecified motor vehicles in traffic accident, initial encounter; Y92.410 Unspecified street and highway as the place of occurrence of the external cause
CPT/HCPCS: 99283

== ENCOUNTER 2019-04-11 09:20 | Outpatient (RCR) | payer MEDICARE | END 2019-05-06 15:25 | disposition home or self-care (01) | PROVIDERS: ATTEND Nurse Practitioner Community Health | DX: R53.1 Weakness (principal) ==

== ENCOUNTER 2020-02-02 00:56 | Emergency (ER) | payer MEDICARE ==
[~2020-02-02] VITALS: Ht 182 cm; Wt 78.0 kg
[2020-02-02] MEDS ORDERED: CARV6.252 PO (01:02)
[2020-02-02 01:19] LABS: BASOPHILS % (AUTO) 0 % (0-10); EOSINOPHILS # (AUTO) 0.2 10^3/uL (0.0-0.3); EOSINOPHILS % (AUTO) 2 % (0-10); HEMATOCRIT 44 % (40-54); LYMPHOCYTES # (AUTO) 0.8 X 10^3 (1.0-4.0); LYMPHOCYTES % (AUTO) 10 % (12-44); MEAN CORPUSCULAR HEMOGLOBIN 33 PG (25-34); MEAN CORPUSCULAR HGB CONC 34 G/DL (32-36); MEAN CORPUSCULAR VOLUME 96 FL (80-99); MEAN PLATELET VOLUME 11.9 FL (7.4-10.4); MONOCYTES # (AUTO) 1.4 X 10^3 (0.0-1.0); MONOCYTES % (AUTO) 17 % (0-12); NEUTROPHILS % (AUTO) 71 % (42-75); PLATELET COUNT 144 10^3/uL (130-400); RED CELL DISTRIBUTION WIDTH 12.4 % (10.0-14.5); WHITE BLOOD COUNT 8.5 10^3/uL (4.3-11.0)
[2020-02-02 01:32] LABS: PROTHROMBIN TIME PATIENT 13.5 SEC (12.2-14.7)
[2020-02-02 01:40] LABS: ALBUMIN 3.6 GM/DL (3.2-4.5); BILIRUBIN,TOTAL 0.6 MG/DL (0.1-1.0); CALCIUM 9.1 MG/DL (8.5-10.1); CREATININE SERUM 2.02 MG/DL (0.60-1.30); POTASSIUM 3.9 MMOL/L (3.6-5.0); TOTAL PROTEIN 6.7 GM/DL (6.4-8.2)
[2020-02-02] MEDS ORDERED: NS IV 1000 ML 1,000 ML IV SCH (01:41)
--- NOTE | 2020-02-02 02:15 | NUR ---
no urine in wee bag at this time.
[2020-02-02] MEDS ORDERED: RX-OSELTAMIVIR 6 MG/ML (TAMIFLU) BOT PO STA (02:18)
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
[2020-02-02 02:30] VITALS: BP 112/76
--- NOTE | 2020-02-02 05:34 | Diagnostic Imaging Report ---
INDICATION: Fever. Weakness. COMPARISON: 02/01/2018 FINDINGS: Single frontal view of the chest demonstrates normal heart size and pulmonary vascularity. The lungs are well aerated and clear. No large pleural effusion or pneumothorax is seen. The visualized osseous structures show no acute abnormalities. Left-sided AICD is noted. IMPRESSION: 1. No acute cardiopulmonary process. Dictated by: Dictated on workstation # [id number]
== END 2020-02-02 02:38 | disposition home or self-care (01) ==
LOC: EDUNIT# 00:56 → ER 00:58
DX: J10.1 Influenza due to other identified influenza virus with other respiratory manifestations (principal); R53.1 Weakness; I10 Essential (primary) hypertension; I25.2 Old myocardial infarction; I25.10 Atherosclerotic heart disease of native coronary artery without angina pectoris; Z95.0 Presence of cardiac pacemaker; Z79.82 Long term (current) use of aspirin; Z87.891 Personal history of nicotine dependence; Z77.22 Contact with and (suspected) exposure to environmental tobacco smoke (acute) (chronic)
CPT/HCPCS: 36415; 71045; 80053; 83605; 85025; 85610; 85730; 87040; 87804; 93041

== ENCOUNTER → 2021-03-09 | Outpatient (CLI) | payer MEDICARE ==
[~2021-03-09] MED LIST changes: +ASPI-1238 PO; -ASPI-983 PO; +CARV6.252 PO; -LISI-556 PO; +LISI-729 PO
== END ==
LOC: CARD 15:28
PROVIDERS: ATTEND Pediatrics
DX: I50.20 Unspecified systolic (congestive) heart failure (principal); I08.1 Rheumatic disorders of both mitral and tricuspid valves
CPT/HCPCS: 93306

== ENCOUNTER 2021-04-10 18:22 | Emergency (ER) | payer MEDICARE ==
[~2021-04-10] VITALS: Ht 185.4 cm; Wt 81.8 kg
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
[2021-04-10] MEDS ORDERED: RX-MUPIROCIN (BACTROBAN) 2% OINT 22 GM TUBE TOP STA (19:01)
[2021-04-10] MEDS ORDERED: RX-TRIMETH/SULFA. 160-800 MG (BACTRIM DS) TAB PPK#2 PO STA (19:01)
[2021-04-10] MEDS ORDERED: SULF1TAB35 PO (19:05)
--- NOTE | 2021-04-10 19:20 | Diagnostic Imaging Report ---
INDICATION: Left great toe swelling and redness. Toenail issues. EXAMINATION: Left foot, 04/10/2021. FINDINGS: 3 views of the foot. There is marked soft tissue prominence about the forefoot, especially dorsally. There is diffuse soft tissue abnormality at the great toe in the region of expected nailbed. The underlying osseous structures are intact and unremarkable. IMPRESSION: Soft tissue findings with no acute osseous abnormality. Dictated by: Dictated on workstation # [id number]
== END 2021-04-10 19:28 | disposition home or self-care (01) ==
LOC: EDUNIT# 18:22 → ER 18:23
DX: L03.032 Cellulitis of left toe (principal); L60.8 Other nail disorders; E11.9 Type 2 diabetes mellitus without complications; I11.0 Hypertensive heart disease with heart failure; I50.9 Heart failure, unspecified; I25.10 Atherosclerotic heart disease of native coronary artery without angina pectoris; J45.909 Unspecified asthma, uncomplicated; Z95.810 Presence of automatic (implantable) cardiac defibrillator; Z95.5 Presence of coronary angioplasty implant and graft; Z87.891 Personal history of nicotine dependence; Z77.22 Contact with and (suspected) exposure to environmental tobacco smoke (acute) (chronic); Z79.82 Long term (current) use of aspirin; Z79.899 Other long term (current) drug therapy
CPT/HCPCS: 73630; 82947; 87070; 87077; 87205

== ENCOUNTER 2021-05-19 21:00 | Inpatient (IN) | payer MEDICARE ==
[~2021-05-19] VITALS: Ht 177.8 cm; Wt 93.6 kg
[~2021-05-19 21:00] MED LIST changes: +SULF1TAB35 PO
[2021-05-19] MEDS ORDERED: NS IV 1000 ML 1,000 ML ONE (21:14)
[2021-05-19] MEDS ORDERED: ACETAMINOPHEN 500 MG TAB (TYLENOL) ONE (21:14)
[2021-05-19 21:33] LABS: BASOPHILS % (AUTO) 1 % (0-10); EOSINOPHILS % (AUTO) 0 % (0-10); HEMATOCRIT 43 % (40-54); HEMOGLOBIN 14.1 g/dL (13.3-17.7); LYMPHOCYTES # (AUTO) 1.5 10^3/uL (1.0-4.0); LYMPHOCYTES % (AUTO) 27 % (12-44); MEAN CORPUSCULAR HEMOGLOBIN 33 pg (25-34); MEAN CORPUSCULAR HGB CONC 33 g/dL (32-36); MEAN CORPUSCULAR VOLUME 98 fL (80-99); MEAN PLATELET VOLUME 11.8 fL (9.0-12.2); MONOCYTES # (AUTO) 0.9 10^3/uL (0.0-1.0); MONOCYTES % (AUTO) 16 % (0-12); NEUTROPHILS # (AUTO) 3.2 10^3/uL (1.8-7.8); NEUTROPHILS % (AUTO) 56 % (42-75); PLATELET COUNT 152 10^3/uL (130-400); WHITE BLOOD COUNT 5.7 10^3/uL (4.3-11.0)
[2021-05-19 21:42] LABS: FIBRIN DEGRADATION PRODUCTS 1.35 UG/ML (0.00-0.49); PROTHROMBIN TIME PATIENT 13.7 SEC (12.2-14.7)
[2021-05-19] MEDS ORDERED: ACETAMINOPHEN 500 MG TAB (TYLENOL) PO ONE (21:45)
[2021-05-19] MEDS ORDERED: NS IV 1000 ML 1,000 ML IV SCH ×2 (21:45→23:15)
[2021-05-19 21:52] LABS: ERYTHROCYTE SEDIMENTATION RATE 44 MM/HR (0-30)
[2021-05-19 21:57] LABS: ALBUMIN 3.3 GM/DL (3.2-4.5); BILIRUBIN,TOTAL 0.4 MG/DL (0.1-1.0); CALCIUM 8.3 MG/DL (8.5-10.1); CREATININE SERUM 2.38 MG/DL (0.60-1.30); MAGNESIUM 1.9 MG/DL (1.6-2.4); POTASSIUM 3.4 MMOL/L (3.6-5.0); TOTAL PROTEIN 7.9 GM/DL (6.4-8.2)
[2021-05-19] MEDS ORDERED: D5 1/2 NS W/KCL 20 MEQ/L 1,000 ML IV SCH (22:00)
[2021-05-19 22:11] LABS: BILIRUBIN,URINE NEGATIVE (NEGATIVE); CLARITY,URINE CLEAR; COLOR,URINE YELLOW; GLUCOSE, URINE (UA) NEGATIVE (NEGATIVE); KETONES,URINE NEGATIVE (NEGATIVE); LEUKOCYTE ESTERASE ,URINE 2+ (NEGATIVE); NITRITE,URINE POSITIVE (NEGATIVE); PROTEIN,URINE 1+ (NEGATIVE)
[2021-05-19 22:20] LABS: CREATINE KINASE MB 1.5 NG/ML (<6.6)
[2021-05-19 22:57] LABS: BACTERIA,URINE MODERATE /HPF; WBC,URINE 50-100 /HPF
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
[2021-05-19] MEDS ORDERED: cefTRIAXone 1,000 MG in WATER (STERILE) FOR INJECTION 10 ML IV ONE (23:15)
[2021-05-19] MEDS ORDERED: LACTATED RINGERS 0 ML IV ONE (23:16)
[2021-05-20] VITALS (19 sets, daily range): BP systolic 91–121; BP diastolic 59–81
[2021-05-20] MEDS: ENOXAPARIN 100 MG/1 ML (LOVENOX) SYR SC SCH ×2 (01:45→21:12)
[2021-05-20] MEDS ORDERED: cefTRIAXone 1,000 MG in WATER (STERILE) FOR INJECTION 10 ML IV SCH (01:45)
[2021-05-20] MEDS ORDERED: ONDANSETRON 4 MG/2 ML (SDV) Z0FRAN IV PRN (01:45)
[2021-05-20] MEDS: D5 1/2 NS W/KCL 20 MEQ/L 1,000 ML IV SCH ×2 (01:48→15:05)
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
[2021-05-20 03:21] LABS: EOSINOPHILS % (AUTO) 0 % (0-10); MONOCYTES # (AUTO) 0.3 10^3/uL (0.0-1.0); MONOCYTES % (AUTO) 5 % (0-12); WHITE BLOOD COUNT 5.4 10^3/uL (4.3-11.0)
[2021-05-20 03:23] LABS: BASOPHILS % (AUTO) 0 % (0-10); HEMATOCRIT 39 % (40-54); HEMOGLOBIN 12.8 g/dL (13.3-17.7); LYMPHOCYTES # (AUTO) 1.1 10^3/uL (1.0-4.0); LYMPHOCYTES % (AUTO) 21 % (12-44); MEAN CORPUSCULAR HEMOGLOBIN 33 pg (25-34); MEAN CORPUSCULAR HGB CONC 33 g/dL (32-36); MEAN CORPUSCULAR VOLUME 101 fL (80-99); MEAN PLATELET VOLUME 11.3 fL (9.0-12.2); NEUTROPHILS % (AUTO) 74 % (42-75); PLATELET COUNT 117 10^3/uL (130-400)
[2021-05-20 03:33] LABS: ALBUMIN 2.7 GM/DL (3.2-4.5); POTASSIUM 3.5 MMOL/L (3.6-5.0)
[2021-05-20 03:35] LABS: CALCIUM 7.4 MG/DL (8.5-10.1)
[2021-05-20 03:36] LABS: TOTAL PROTEIN 6.1 GM/DL (6.4-8.2)
[2021-05-20 03:37] LABS: BILIRUBIN,TOTAL 0.3 MG/DL (0.1-1.0)
[2021-05-20 03:39] LABS: CREATININE SERUM 2.18 MG/DL (0.60-1.30)
[2021-05-20] MEDS: inSUlin ASPART (NovoLOG) 1 UNIT/0.01 ML (CHARGE PER UNIT) SC SCH ×4 (05:16→21:01)
--- NOTE | 2021-05-20 05:42 | Diagnostic Imaging Report ---
EXAMINATION: CT head without contrast. TECHNIQUE: Multiple contiguous axial images were obtained through the brain without the use of intravenous contrast. All CT scans use one or more of the following dose optimizing techniques: automated exposure control, MA and/or KvP adjustment based on patient size and exam type or iterative reconstruction. HISTORY: History of stroke. Falls. Scalp contusion. COMPARISON: 02/01/2018. FINDINGS: No large acute territorial ischemia, mass, or hemorrhage. No midline shift or mass effect. Chronic infarcts are seen in the right frontoparietal region and left frontal lobe. Decreased attenuation is seen in the periventricular and subcortical white matter. The ventricles and cortical sulci are prominent. The basilar cisterns are patent and unremarkable. The orbits are normal. Paranasal sinuses are normal. Mastoid air cells are clear. No soft tissue abnormality is seen. Prior right parietal and left frontal craniotomy changes are noted. IMPRESSION: 1. No large acute territorial ischemia, mass, or hemorrhage. 2. Old infarcts in the right frontoparietal region and left frontal lobe. 3. Generalized parenchymal volume loss with chronic microvascular disease. Dictated by: Dictated on workstation # [id number]
--- NOTE | 2021-05-20 06:45 | Diagnostic Imaging Report ---
EXAMINATION: Chest 1 view HISTORY: fever, cough, hypoxia COMPARISON: Chest radiograph 02/02/2020 FINDINGS: Heart size is upper limits of normal. Left-sided cardiac device is unchanged. There is prominent pulmonary vasculature seen with pulmonary vascular congestion. Patchy interstitial opacities within the mid and lower lungs. No significant pleural fluid or pneumothorax. The osseous structures are intact. IMPRESSION: 1. Patchy interstitial opacities within the mid and lower lungs which could represent pulmonary edema or atypical infection. Dictated by: Dictated on workstation # [id number]
[2021-05-20] MEDS: AZITHROMYCIN INJECTION 500 MG in NS (IVPB) 250 ML IV SCH (08:18)
[2021-05-20] MEDS ORDERED: RT-ALBUTEROL INHALER HFA (VENTOLIN HFA) 18 GM IH PRN (08:30)
[2021-05-20] MEDS ORDERED: REMDESIVIR INJ 200 MG in NS (IVPB) 210 ML IV ONE (09:00)
--- NOTE | 2021-05-20 09:08 | Diagnostic Imaging Report ---
PROCEDURE: US Venous Lower Ext Pedro Luis. TECHNIQUE: Multiple real-time grayscale images were obtained over the lower extremities in various projections, bilaterally. Additional duplex Doppler and color Doppler images were also obtained. INDICATION: Bilateral lower extremity edema. COMPARISON: 02/01/2018. FINDINGS: The bilateral common femoral vein, femoral vein, deep femoral vein, and popliteal vein are normal in appearance. These vessels show normal compressibility, color flow and doppler augmentation. The visualized deep calf veins demonstrate no distinct intraluminal thrombus. IMPRESSION: 1. No sonographic evidence of deep venous thrombosis in the bilateral lower extremities. Dictated by: Dictated on workstation # [id number]
[2021-05-20] MEDS: RT-ALBUTEROL INHALER HFA (VENTOLIN HFA) 18 GM IH SCH ×4 (11:18→23:13)
[2021-05-20] MEDS ORDERED: CALC0.253 PO (12:27)
[2021-05-20] MEDS ORDERED: CARV3.122 PO (12:27)
[2021-05-20] MEDS ORDERED: ACET-2267 PO (12:27)
[2021-05-20] MEDS ORDERED: FURO40TA4 PO (12:27)
[2021-05-20] MEDS ORDERED: GUAI600T43 PO (12:27)
[2021-05-20] MEDS ORDERED: ASPI-1238 PO (12:28)
[2021-05-20] MEDS ORDERED: NS IV 500 ML 500 ML IV SCH (15:45)
[2021-05-20] MEDS ORDERED: LIDOCAINE UROJET 2% GEL 10 ML PKG ONE (17:03)
[2021-05-20] MEDS ORDERED: ATROPINE INJ 0.4 MG/ML SDV IV PRN (18:00)
[2021-05-20] MEDS ORDERED: ALBUMIN 25% 25 GM/100 ML 200 ML IV ONE (18:00)
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
--- NOTE | 2021-05-20 18:28 | Diagnostic Imaging Report ---
EXAMINATION: Portable erect AP chest at 6:12 PM INDICATION: PICC line insertion In the interval since the exam performed on 05/19/2021 a right-sided PICC line has been inserted. The tip of the line overlies the distal superior vena cava and seems to be in good position. There is no sign of a pneumothorax on the right and the overall appearance of the chest does not appear to have changed significantly since the prior study. IMPRESSION: 1. There has been interval insertion of right-sided PICC line without apparent complication. 2. The overall appearance of the chest is otherwise stable. A follow-up study would be recommended for continued evaluation. Dictated by: Dictated on workstation # [id number]
[2021-05-20] MEDS: cefTRIAXone 1,000 MG in WATER (STERILE) FOR INJECTION 10 ML IV SCH (21:11)
[2021-05-21] VITALS (23 sets, daily range): BP systolic 94–124; BP diastolic 58–89
[2021-05-21] MEDS: RT-ALBUTEROL INHALER HFA (VENTOLIN HFA) 18 GM IH SCH ×6 (02:31→22:37)
[2021-05-21 04:10] LABS: HEMOGLOBIN 12.1 g/dL (13.3-17.7); MEAN PLATELET VOLUME 11.9 fL (9.0-12.2)
[2021-05-21 04:27] LABS: POTASSIUM 3.8 MMOL/L (3.6-5.0)
[2021-05-21 04:28] LABS: CALCIUM 7.6 MG/DL (8.5-10.1)
[2021-05-21 04:33] LABS: CREATININE SERUM 1.79 MG/DL (0.60-1.30)
[2021-05-21] MEDS: D5 1/2 NS W/KCL 20 MEQ/L 1,000 ML IV SCH ×3 (05:05→20:38)
[2021-05-21] MEDS: inSUlin ASPART (NovoLOG) 1 UNIT/0.01 ML (CHARGE PER UNIT) SC SCH ×4 (05:06→20:35)
[2021-05-21] MEDS: AZITHROMYCIN INJECTION 500 MG in NS (IVPB) 250 ML IV SCH (06:13)
[2021-05-21] MEDS ORDERED: REMDESIVIR INJ 100 MG in NS (IVPB) 230 ML IV SCH (09:00)
--- NOTE | 2021-05-21 12:04 | Progress Note - Hospitalist ---
Subjective HPI/CC On Admission Date Seen by Provider: May 21, 2021 Time Seen by Provider: 09:15 Subjective/Events-last exam Patient reports feeling weak denies shortness of breath at rest or chest pain reports not feeling hungry and weak but denies nausea. Focused Exam Lactate Level 05/19/21 21:10: Lactic Acid Level 1.75 Objective Exam Vital Signs Vital Signs Date Time Temp Pulse Resp B/P (MAP) Pulse Ox O2 Delivery O2 Flow Rate FiO2 05/21/21 11:25 92 Room Air 05/21/21 11:00 47 105/69 (81) 3.00 05/21/21 07:30 36.0 05/20/21 19:24 22 05/20/21 08:11 32 Capillary Refill : Less Than 3 Seconds General Appearance: No Apparent Distress, Chronically ill Respiratory: No Accessory Muscle Use, No Respiratory Distress, Other (Basilar rales no wheezing noted) Cardiovascular: Regular Rate, Rhythm, No Gallop, No JVD, No Murmur Results/Procedures Lab Laboratory Tests 05/21/21 03:35 Patient resulted labs reviewed. Assessment/Plan Assessment and Plan Assess & Plan/Chief Complaint Assessment/Plan Assessment/Plan Admission Status: Inpatient Order (span 2 midnights) Reason for Inpatient Admission: COVID pneumonia with hypoxia with underlying comorbidities Respiratory status appears to be stable compared to yesterday's description continue Decadron and remdesivir and in light of mildly elevated procalcitonin level antibiotic therapy for community-acquired pneumonia for now as well.Bradycardia persists will hold carvedilol suspect sick sinus syndrome continue telemetry monitoring. Patient maintaining low normal blood pressure not requiring pressor support with improving likely dehydration related acute kidney injury. (1) Pneumonia due to COVID-19 virus Status: Acute Assessment & Plan: Currently requiring 2 lpm supplemental oxygen, started on dexamethasone and remdesevir. (2) Acute respiratory failure due to COVID-19 Status: Acute Assessment & Plan: Currently requiring 2 lpm supplemental oxygen. High risk of decompensation with underlying DMII, CKD, CAD and age. (3) Acute on chronic renal failure Status: Acute Assessment & Plan: Baseline creatinine appears to be around 1.8-2.0. Will give fluid cautiously given his history of CHF and current COVID infection. Qualifiers: (4) UTI (urinary tract infection) Status: Acute Assessment & Plan: Ceftriaxone Qualifiers: Qualified Codes: N30.01 - Acute cystitis with hematuria (5) Coronary artery disease Status: Chronic Qualifiers: Qualified Codes: I25.10 - Atherosclerotic heart disease of [place] coronary artery without angina pectoris (6) Frequent falls Status: Acute Assessment & Plan: Per family falls multiple times per day, concern for head impact and possibly needing blood thinner with elevated D dimer, CT head pending. (7) Hyponatremia Status: Acute (8) Diabetes mellitus, type 2 Status: Chronic Assessment & Plan: ICU sliding scale insulin protocol. Qualifiers: Qualified Codes: E11.22 - Type 2 diabetes mellitus with diabetic chronic kidney disease; N18.32 - Chronic kidney disease, stage 3b (9) Elevated liver enzymes Status: Acute (10) Hypokalemia Status: Acute Assessment & Plan: Replace and follow. (11) Elevated troponin Status: Acute Assessment & Plan: Suspect due to COVID and strain, type II [place]. Asymptomatic. Will follow. (12) Elevated d-dimer Status: Acute Assessment & Plan: Consider V/Q in the am, will check venous dopplers first given leg swelling, may lung imaging if negative, renal function poor for CTA. Start therapeutic dose anticoagulation. (13) DVT prophylaxis Status: Acute Assessment & Plan: Therapeutic dosing with elevated D dimer. Critical Care Critically Ill Patient MAURICE FONTENOT MD May 21, 2021 12:04
[2021-05-21] MEDS: cefTRIAXone 1,000 MG in WATER (STERILE) FOR INJECTION 10 ML IV SCH (20:35)
[2021-05-21] MEDS: ENOXAPARIN 100 MG/1 ML (LOVENOX) SYR SC SCH (20:35)
[2021-05-22] VITALS (14 sets, daily range): BP systolic 103–195; BP diastolic 59–144
[2021-05-22] MEDS: RT-ALBUTEROL INHALER HFA (VENTOLIN HFA) 18 GM IH SCH ×6 (02:30→22:04)
[2021-05-22 04:21] LABS: BASOPHILS % (AUTO) 0 % (0-10); EOSINOPHILS % (AUTO) 0 % (0-10); HEMATOCRIT 41 % (40-54); HEMOGLOBIN 13.4 g/dL (13.3-17.7); LYMPHOCYTES # (AUTO) 1.6 10^3/uL (1.0-4.0); LYMPHOCYTES % (AUTO) 16 % (12-44); MEAN CORPUSCULAR HEMOGLOBIN 33 pg (25-34); MEAN CORPUSCULAR HGB CONC 33 g/dL (32-36); MEAN CORPUSCULAR VOLUME 100 fL (80-99); MEAN PLATELET VOLUME 11.8 fL (9.0-12.2); MONOCYTES # (AUTO) 0.8 10^3/uL (0.0-1.0); MONOCYTES % (AUTO) 8 % (0-12); NEUTROPHILS # (AUTO) 7.7 10^3/uL (1.8-7.8); NEUTROPHILS % (AUTO) 76 % (42-75); PLATELET COUNT 119 10^3/uL (130-400); WHITE BLOOD COUNT 10.1 10^3/uL (4.3-11.0)
[2021-05-22 04:35] LABS: POTASSIUM 3.9 MMOL/L (3.6-5.0)
[2021-05-22 04:37] LABS: CALCIUM 7.4 MG/DL (8.5-10.1)
[2021-05-22 04:41] LABS: CREATININE SERUM 1.7 MG/DL (0.60-1.30); PHOSPHORUS 2.2 MG/DL (2.3-4.7)
[2021-05-22 04:43] LABS: MAGNESIUM 2.2 MG/DL (1.6-2.4)
[2021-05-22] MEDS: inSUlin ASPART (NovoLOG) 1 UNIT/0.01 ML (CHARGE PER UNIT) SC SCH ×4 (04:48→20:33)
[2021-05-22] MEDS: AZITHROMYCIN INJECTION 500 MG in NS (IVPB) 250 ML IV SCH (06:22)
--- NOTE | 2021-05-22 12:46 | Progress Note - Hospitalist ---
Subjective HPI/CC On Admission Date Seen by Provider: May 22, 2021 Time Seen by Provider: 11:45 Subjective/Events-last exam Patient voices no complaint continues to have a dry cough which does not bother him denies shortness of breath no evidence for agitation. Focused Exam Lactate Level 05/19/21 21:10: Lactic Acid Level 1.75 Objective Exam Vital Signs Vital Signs Date Time Temp Pulse Resp B/P (MAP) Pulse Ox O2 Delivery O2 Flow Rate FiO2 05/22/21 12:30 36.1 60 22 120/76 (91) 95 Room Air 05/22/21 06:51 2.00 05/20/21 08:11 32 Capillary Refill : Less Than 3 Seconds General Appearance: No Apparent Distress Respiratory: No Accessory Muscle Use, No Respiratory Distress, Other (Scattered rales with no wheezing or rhonchi good air movement.) Cardiovascular: Regular Rate, Rhythm, No Edema, No Gallop, No JVD, No Murmur, Normal Peripheral Pulses Results/Procedures Lab Laboratory Tests 05/22/21 04:15 Patient resulted labs reviewed. Assessment/Plan Assessment and Plan Assess & Plan/Chief Complaint Assessment/Plan Assessment/Plan Admission Status: Inpatient Order (span 2 midnights) Reason for Inpatient Admission: COVID pneumonia with hypoxia with underlying comorbidities 05/21: Respiratory status appears to be stable compared to yesterday's description continue Decadron and remdesivir and in light of mildly elevated procalcitonin level antibiotic therapy for community-acquired pneumonia for now as well.Bradycardia persists will hold carvedilol suspect sick sinus syndrome continue telemetry monitoring. Patient maintaining low normal blood pressure not requiring pressor support with improving likely dehydration related acute kidney injury. 05/22: Respiratory status improved we will transfer to floor. (1) Pneumonia due to COVID-19 virus Status: Improving Assessment & Plan: (2) Acute respiratory failure due to COVID-19 Status: Acute Assessment & Plan: Currently requiring 2 lpm supplemental oxygen. High risk of decompensation with underlying DMII, CKD, CAD and age. (3) Acute on chronic renal failure Status: Acute Assessment & Plan: Baseline creatinine appears to be around 1.8-2.0. Will give fluid cautiously given his history of CHF and current COVID infection. Qualifiers: (4) UTI (urinary tract infection) Status: Acute Assessment & Plan: Ceftriaxone Qualifiers: Qualified Codes: N30.01 - Acute cystitis with hematuria (5) Coronary artery disease Status: Chronic Qualifiers: Qualified Codes: I25.10 - Atherosclerotic heart disease of [place] coronary artery without angina pectoris (6) Frequent falls Status: Acute Assessment & Plan: Per family falls multiple times per day, concern for head impact and possibly needing blood thinner with elevated D dimer, CT head pending. (7) Hyponatremia Status: Acute (8) Diabetes mellitus, type 2 Status: Chronic Assessment & Plan: ICU sliding scale insulin protocol. Qualifiers: Qualified Codes: E11.22 - Type 2 diabetes mellitus with diabetic chronic kid sean disease; N18.32 - Chronic kidney disease, stage 3b (9) Elevated liver enzymes Status: Acute (10) Hypokalemia Status: Acute Assessment & Plan: Replace and follow. (11) Elevated troponin Status: Acute Assessment & Plan: Suspect due to COVID and strain, type II [place]. Asymptomatic. Will follow. (12) Elevated d-dimer Status: Acute Assessment & Plan: Consider V/Q in the am, will check venous dopplers first given leg swelling, may lung imaging if negative, renal function poor for CTA. Start therapeutic dose anticoagulation. (13) DVT prophylaxis Status: Acute Assessment & Plan: Therapeutic dosing with elevated D dimer. MAURICE FONTENOT MD May 22, 2021 12:46
[2021-05-22] MEDS: D5 1/2 NS W/KCL 20 MEQ/L 1,000 ML IV SCH (20:16)
[2021-05-22] MEDS: ACETAMINOPHEN 500 MG TAB (TYLENOL) PO PRN (20:16)
[2021-05-22] MEDS: cefTRIAXone 1,000 MG in WATER (STERILE) FOR INJECTION 10 ML IV SCH (20:16)
[2021-05-22] MEDS: ENOXAPARIN 100 MG/1 ML (LOVENOX) SYR SC SCH (20:16)
[2021-05-23] VITALS (7 sets, daily range): BP systolic 110–138; BP diastolic 60–90
[2021-05-23] MEDS: D5 1/2 NS W/KCL 20 MEQ/L 1,000 ML IV SCH ×2 (00:08→23:00)
[2021-05-23] MEDS: RT-ALBUTEROL INHALER HFA (VENTOLIN HFA) 18 GM IH SCH ×6 (02:05→21:56)
[2021-05-23 04:35] LABS: BASOPHILS % (AUTO) 0 % (0-10); EOSINOPHILS % (AUTO) 0 % (0-10); HEMOGLOBIN 11.9 g/dL (13.3-17.7)
[2021-05-23 04:37] LABS: HEMATOCRIT 36 % (40-54); LYMPHOCYTES # (AUTO) 1.5 10^3/uL (1.0-4.0); LYMPHOCYTES % (AUTO) 16 % (12-44); MEAN CORPUSCULAR HEMOGLOBIN 33 pg (25-34); MEAN CORPUSCULAR HGB CONC 33 g/dL (32-36); MEAN CORPUSCULAR VOLUME 99 fL (80-99); MEAN PLATELET VOLUME 11.9 fL (9.0-12.2); MONOCYTES # (AUTO) 0.8 10^3/uL (0.0-1.0); MONOCYTES % (AUTO) 8 % (0-12); NEUTROPHILS # (AUTO) 7.1 10^3/uL (1.8-7.8); NEUTROPHILS % (AUTO) 75 % (42-75); PLATELET COUNT 94 10^3/uL (130-400); WHITE BLOOD COUNT 9.4 10^3/uL (4.3-11.0)
[2021-05-23 04:43] LABS: ALBUMIN 2.8 GM/DL (3.2-4.5)
[2021-05-23 04:44] LABS: POTASSIUM 4.1 MMOL/L (3.6-5.0)
[2021-05-23 04:45] LABS: CALCIUM 7.4 MG/DL (8.5-10.1)
[2021-05-23 04:46] LABS: TOTAL PROTEIN 5.8 GM/DL (6.4-8.2)
[2021-05-23 04:48] LABS: BILIRUBIN,TOTAL 0.3 MG/DL (0.1-1.0)
[2021-05-23 04:50] LABS: CREATININE SERUM 1.75 MG/DL (0.60-1.30)
[2021-05-23] MEDS: inSUlin ASPART (NovoLOG) 1 UNIT/0.01 ML (CHARGE PER UNIT) SC SCH ×4 (05:20→21:56)
[2021-05-23] MEDS: AZITHROMYCIN INJECTION 500 MG in NS (IVPB) 250 ML IV SCH (05:48)
--- NOTE | 2021-05-23 06:38 | Progress Note - Hospitalist ---
Subjective HPI/CC On Admission Date Seen by Provider: May 23, 2021 Time Seen by Provider: 10:00 Subjective/Events-last exam Pt doing about the same On room air no oxygen PT and OT ordered Creatinine 1.75 Confusion is from severe dementia Hemoglobin 11.9 Close to disposition will reach out to family Review of Systems General: Fatigue Musculoskeletal: back pain Objective Exam Vital Signs Vital Signs Date Time Temp Pulse Resp B/P (MAP) Pulse Ox O2 Delivery O2 Flow Rate FiO2 05/24/21 03:56 35.0 74 20 128/62 (84) 99 Room Air 05/22/21 06:51 2.00 05/20/21 08:11 32 Capillary Refill : Less Than 3 Seconds General Appearance: No Apparent Distress, WD/WN, Chronically ill Respiratory: Lungs Clear Cardiovascular: Regular Rate, Rhythm Neurologic/Psychiatric: Alert, Disoriented Results/Procedures Lab Patient resulted labs reviewed. Assessment/Plan Assessment and Plan Assess & Plan/Chief Complaint Assessment: COVID-19 pneumonia Acute hypoxic respiratory failure Severe dementia Hypertension Chronic renal sufficiency Plan: Home O2 eval Close to disposition PT and OT MARIE JIMENEZ DO May 23, 2021 06:38
[2021-05-23] MEDS: ACETAMINOPHEN 500 MG TAB (TYLENOL) PO PRN ×2 (12:20→21:56)
[2021-05-23] MEDS ORDERED: HYDROcodone/APAP 5 MG/325 MG (LORTAB) TAB PO PRN (13:00)
--- NOTE | 2021-05-23 14:46 | Physical Therapy Evaluation ---
PT Evaluation-General Medical Diagnosis Admission Date May 19, 2021 at 23:05 Medical Diagnosis: Covid/acute respiratory failure Onset Date: May 19, 2021 Therapy Diagnosis Therapy Diagnosis: debility/weakness Height/Weight Height (Feet): 6 Height (Inches): 0.00 Weight (Pounds): 168 Weight (Ounces): 0.0 Precautions Precautions/Isolations: Airborne Isolation, Contact Isolation, Droplet Isolation, Fall Prevention Referral Physician: Erasto Reason for Referral: Evaluation/Treatment Medical History Pertinent Medical History: Dementia, Fractures, Heart Failure, HTN, ID, Smoking, TBI Current History EMS secondary to cough/cold symptoms x 3 days Reviewed History: Yes Social History Home: Single Level Current Living Status: Other Family (granddaughter is primary caregiver) Prior Prior Level of Function SCALE: Activities may be completed with or without assistive devices. 1-Vxqqtvgqdx-tahrsjg completes the activity by him/herself with no assistance from a helper. 5-Set-up or Clean-up Assistance-helper sets up or cleans up; patient completes activity. [place] assists only prior to or following the activity. 4-Supervision or Touching Assistance-helper provides verbal cues and/or touching/steadying and/or contact guard assistance as patient completes activity. Assistance may be provided throughout the activity or intermittently. 3-Partial/Moderate Assistance-helper does LESS THAN HALF the effort. [place] lift s, holds or supports trunk or limbs, but provides less than half the effort. 2-Substantial/Maximal Assistance-helper does MORE THAN HALF the effort. [place] lifts or holds trunk or limbs and provides more than half the effort. 6-Dpyfhlmel-pmtqfk does ALL the effort. Patient does none of the effort to complete the activity. Or, the assistance of 2 or more helpers is required for the patient to complete the activity. If activity was not attempted, code reason: 7-Patient Refused. 9-Not Applicable-not attempted and the patient did not perform the activity before the current illness, exacerbation or injury. 10-Not Attempted due to Environmental Limitations-(lack of equipment, weather restraints, etc.). 88-Not Attempted due to Medical Conditions or Safety Concerns. Patient poor historian PT Evaluation-Current Subjective Patient reluctantly agrees to PT. Objective Patient Orientation: Confused Attachments: IV ROM/Strength ROM Lower Extremities bilateral LE WFL Strength Lower Extremities 3/5 grossly bilateral LE Integumentary/Posture Bowel Incontinence: Yes Bladder Incontinence: Yes Posture kyphotic Neuromuscular (Tone, Coordination, Reflexes) diminished coordination Sensory Vision: Functional Hearing: Impaired Transfers Roll Left to Right (QC): 3 Sit to Lying (QC): 3 Lying to Sitting/Side of Bed(Q: 3 Sit to Stand (QC): 2 Chair/Tib-jg-Mmsnh Xfer(QC): 2 Patient up in recliner with chair alarm activated. Gait Does the Patient Walk?: Yes Mode of Locomotion: Walk Anticipated Mode of Locomotion: Walk Walk 10 feet (QC): 2 Walk 50 ft with 2 Turns(QC): 88 Walk 150 ft (QC): 88 Distance: 15' Gait Assistive Device: FWW Comments/Gait Description unsteady/retropulsive Balance Sitting Static: Fair Sitting Dynamic: Fair Standing Static: Poor Standing Dynamic: Poor Assessment/Needs 81 y.o. male, will benefit from skilled PT to address functional strength and mobility to improve current LOF. From a PT standpoint, patient may requires extended care due to current LOF and safety concerns. Rehab Potential: Guarded PT Form[place] Fitter Goals Formstone Fitter Goals PT [place] Fitter Goals Time Frame: Jun 04, 2021 Roll Left & Right (QC): 4 Sit to Lying (QC): 4 Lying-Sitting on Side/Bed(QC): 4 Sit to Stand (QC): 4 Chair/Jav-dl-Gllcs Xfer(QC): 4 Toilet Transfer (QC): 4 Walk 10 feet (QC): 4 Walk 50ft with 2 Turns (QC): 4 PT Plan Problem List Problem List: Activity Tolerance, Functional Strength, Safety, Balance, Gait, Transfer, Bed Mobility Treatment/Plan Treatment Plan: Continue Plan of Care Treatment Plan: Bed Mobility, Education, Functional Activity Roddy, Functional Strength, Gait, Safety, Therapeutic Exercise, Transfers Treatment Duration: Jun 04, 2021 Frequency: 6 times per week Estimated Hrs Per Day: .25 hour per day Time/GCodes Time In: 1245 Time Out: 1301 Total Billed Treatment Time: 16 Total Billed Treatment 1 visit EVModC 16 min GUSTAVO MIRELES PT May 23, 2021 14:46
--- NOTE | 2021-05-23 15:29 | Occupational Therapy Eval ---
OT Evaluation-General/PLF Medical Diagnosis Admission Date May 19, 2021 at 23:05 Medical Diagnosis: Covid/acute respiratory failure/pneumonia, UTI Onset Date: May 19, 2021 Therapy Diagnosis Therapy Diagnosis: Weakness, Decreased ADL skills Height/Weight Height (Feet): 6 Height (Inches): 0.00 Weight (Pounds): 168 Weight (Ounces): 0.0 Precautions Precautions/Isolations: Airborne Isolation, Contact Isolation, Droplet Isolation, Fall Prevention Weight Bear Status Weight Bearing Restriction: Weight Bearing/Tolerated Referral Physician: Erasto Referral Reason: Activity Tolerance, Self Care, Evaluation/Treatment, Strengthening/ROM Medical History Pertinent Medical History: CAD, Dementia, Fractures, Heart Failure, HTN, [place], Smoking, TBI Additional Medical History CHF, CKD, Pacemaker, Right knee surgery, skull sx, TBI Current History Pt. COVID positive Reviewed History: Yes Social History Home: Single Level Current Living Status: Other Family (granddaughter is primary caregiver) ADL-Prior Level of Function SCALE: Activities may be completed with or without assistive devices. 7-Rriwybntra-fygcubu completes the activity by him/herself with no assistance from a helper. 5-Set-up or Clean-up Assistance-helper sets up or cleans up; patient completes activity. [place] assists only prior to or following the activity. 4-Supervision or Touching Assistance-helper provides verbal cues and/or touching/steadying and/or contact guard assistance as patient completes activity. Assistance may be provided throughout the activity or intermittently. 3-Partial/Moderate Assistance-helper does LESS THAN HALF the effort. [place] lifts, holds or supports trunk or limbs, but provides less than half the effort. 2-Substantial/Maximal Assistance-helper does MORE THAN HALF the effort. [place] lifts or holds trunk or limbs and provides more than half the effort. 6-Quanrtdtq-ogkuib does ALL the effort. Patient does none of the effort to complete the activity. Or, the assistance of 2 or more helpers is required for the patient to complete the activity. If activity was not attempted, code reason: 7-Patient Refused. 9-Not Applicable-not attempted and the patient did not perform the activity before the current illness, exacerbation or injury. 10-Not Attempted due to Environmental Limitations-(lack of equipment, weather restraints, etc.). 88-Not Attempted due to Medical Conditions or Safety Concerns. ADL PLOF Comments This OT does not have very much information regarding pt's history. Pt. unable to give specific history. Self Care: Needed Some Help Functional Cognition: Needed Some Help OT Current Status Subjective Pt. yells out but does not state pain level. Does state that his stomach is upset, and does not want to eat. Nursing aware. Mental Status/Objective Patient Orientation: Unable to Assess Current Upper Extremity ROM Pt. is able to lift left UE at shoulder level WFL upon request, but is only able to raise right shoulder to approximately 45 degrees. He is unable to state why. ADL-Treatment Eating (QC): 7 (OT sets up pt's tray for him. Encouraged him to eat. Pt. states that he doesn't want to. ) On/Off Footwear (QC): 1 Other Treatments OT came in as PT getting pt. to chair. According to PT, pt. requires max assist with walker for transfer. Pt. up in chair and OT educates pt. about OT goals. Pt. acknowledges, but does not verbalize understanding. Pt. unable to reach feet. Declines eating. OT completes ROM testing. Pt. has limited motion in right UE. OT asks pt. if he needs to toilet, he does not. Unsure at this time what pt's baseline level is at home. Pt. up in chair with chair alarm set. Pt. fell asleep in chair almost immediately. All needs met. Education OT Patient Education: Correct positioning, Exercise program, Modified ADL cesar hniques, Progress toward Goal/Update tx plan, Purpose of tx/functional activities, Reviewed precautions, Rehab process Teaching Recipient: Patient Teaching Methods: Demonstration, Discussion Response to Teaching: Reinforcement Needed OT Detention Goals Postal Supervisor Goals Time Frame: Jun 06, 2021 Eating (QC): 6 Oral Hygiene (QC): 4 Toileting Hygiene (QC): 4 Upper Body Dressing (QC): 4 Additional Goals: 1-Demonstrate ADL Tasks, 2-Verbalize Understanding, 3- ImproveStrength/Roddy 1=Demonstrate adherence to instructed precautions during ADL tasks. 2=Patient will verbalize/demonstrate understanding of assistive devices/modifications for ADL. 3=Patient will improve strength/tolerance for activity to enable patient to perform ADL's. OT Education/Plan Problem List/Assessment Assessment: Decreased Activ Tolerance, Decreased Safety Aware, Decreased UE Strength, Dependent Transfers, Impaired Bed Mobility, Impaired Cognition, Impaired I ADL's, Impaired Self-Care Skills, Restricted Funct UE ROM Chair alarm set. Discharge Recommendations Plan/Recommendations: Continue POC Therapy Discharge Recommendati: 24 Hour Supervision Treatment Plan/Plan of Care Treatment,Training & Education: Yes Patient would benefit from OT for education, treatment and training to promote independence in ADL's, mobility, safety and/or upper extremity function for ADL's. Plan of Care: ADL Retraining, Functional Mobility, UE Funct Exercise/Act Treatment Duration: Jun 06, 2021 Frequency: 5 times per week Estimated Hrs Per Day: .25 hour per day Agreement: Yes Rehab Potential: Guarded Time/GCodes Start Time: 13:05 Stop Time: 13:20 Total Time Billed (hr/min): 15 Billed Treatment Time 1, LAUREL IPMENTEL OT May 23, 2021 15:29
[2021-05-23] MEDS ORDERED: ACETAMINOPHEN 500 MG TAB (TYLENOL) PO PRN (21:30)
[2021-05-23] MEDS: cefTRIAXone 1,000 MG in WATER (STERILE) FOR INJECTION 10 ML IV SCH (21:55)
[2021-05-23] MEDS: ENOXAPARIN 100 MG/1 ML (LOVENOX) SYR SC SCH (21:56)
[2021-05-24] VITALS (16 sets, daily range): BP systolic 68–130; BP diastolic 57–103
[2021-05-24] MEDS: RT-ALBUTEROL INHALER HFA (VENTOLIN HFA) 18 GM IH SCH ×6 (02:18→21:09)
[2021-05-24] MEDS ORDERED: FUROSEMIDE 20 MG (LASIX) TAB ONE (03:41)
[2021-05-24] MEDS: AZITHROMYCIN INJECTION 500 MG in NS (IVPB) 250 ML IV SCH (05:42)
[2021-05-24] MEDS: inSUlin ASPART (NovoLOG) 1 UNIT/0.01 ML (CHARGE PER UNIT) SC SCH (05:42)
[2021-05-24 06:05] LABS: EOSINOPHILS % (AUTO) 0 % (0-10)
[2021-05-24 06:07] LABS: BASOPHILS % (AUTO) 0 % (0-10); HEMATOCRIT 26 % (40-54); HEMOGLOBIN 8.3 g/dL (13.3-17.7); LYMPHOCYTES % (AUTO) 11 % (12-44); MEAN CORPUSCULAR HEMOGLOBIN 33 pg (25-34); MEAN CORPUSCULAR HGB CONC 32 g/dL (32-36); MEAN CORPUSCULAR VOLUME 102 fL (80-99); MEAN PLATELET VOLUME 12.9 fL (9.0-12.2); MONOCYTES # (AUTO) 1.9 10^3/uL (0.0-1.0); MONOCYTES % (AUTO) 11 % (0-12); NEUTROPHILS # (AUTO) 13.9 10^3/uL (1.8-7.8); NEUTROPHILS % (AUTO) 76 % (42-75); PLATELET COUNT 120 10^3/uL (130-400); WHITE BLOOD COUNT 18.2 10^3/uL (4.3-11.0)
[2021-05-24 06:16] LABS: ALBUMIN 2.7 GM/DL (3.2-4.5)
[2021-05-24 06:18] LABS: CALCIUM 7.4 MG/DL (8.5-10.1)
[2021-05-24 06:19] LABS: TOTAL PROTEIN 5.4 GM/DL (6.4-8.2)
[2021-05-24 06:21] LABS: BILIRUBIN,TOTAL 0.6 MG/DL (0.1-1.0)
[2021-05-24 06:23] LABS: CREATININE SERUM 2.45 MG/DL (0.60-1.30)
[2021-05-24 06:30] LABS: ANISOCYTOSIS SLIGHT; BAND NEUTROPHILS 3 %; LYMPHOCYTES % (MANUAL) 8 %; MONOCYTES % (MANUAL) 5 %; NEUTROPHILS % (MANUAL) 83 %; REACTIVE LYMPHOCYTES 1 %
--- NOTE | 2021-05-24 06:39 | Progress Note - Hospitalist ---
Subjective HPI/CC On Admission Date Seen by Provider: May 24, 2021 Time Seen by Provider: 09:30 Subjective/Events-last exam Pt had been doing well, but had a change of events Pt was with labored breathing, but O2 sat was normal COVID-19 seemed to have been improved on Dexamethasone, but now he is acidotic with lactic acid of 11 and pH is at 7.27 and Bicarb of 8 DKA was diagnosed and Pt was moved to ICU Conferred with pulmonology Was on room air, did not even require oxygen Spoke to daughter in depth regarding the move to ICU due to critical status Updated her the best I could Cannot allow visitors due to COVID-19 diagnosis and I explained that to her I did speak with eICU several times regarding acidosis Imaging scan showed retroperitoneal hematoma where a large amount of his blood has gone Hypovolemic status will require blood and IV fluids 81 and severe dementia he really would be unable to tolerate an emergent surgery or even transport so the decision was made along with the daughter Mikki a lengthy conversation that if he should worsen due to Covid and comorbidities and advanced dementia we will place him on comfort care and allow family to visit with PPE intact so I updated ICU nurse and Dr. Wilkins and everyone in agreement Review of Systems Neurological: Confusion Focused Exam Lactate Level 05/24/21 13:15: Lactic Acid Level 8.95*H 05/24/21 16:08: Lactic Acid Level 11.87*H 05/24/21 17:40: Lactic Acid Level 11.70*H Lactic Acid Level Laboratory Tests Test 05/24/21 17:40 Lactic Acid Level 11.70 MMOL/L (0.50-2.00) *H Objective Exam Vital Signs Vital Signs Date Time Temp Pulse Resp B/P (MAP) Pulse Ox O2 Delivery O2 Flow Rate FiO2 05/24/21 21:09 93 Room Air 05/24/21 20:47 36.8 75 19 108/80 3.00 05/20/21 08:11 32 Capillary Refill : Less Than 3 Seconds General Appearance: Chronically ill, Mild Distress, Thin, Other (pale, fatigued, confused, lethargic, ashen, walker) Respiratory: Accessory Muscle Use, Decreased Breath Sounds Cardiovascular: Tachycardia Neurologic/Psychiatric: Alert, Disoriented Skin: Cool, Damp Results/Procedures Lab Laboratory Tests 05/24/21 05:30 05/24/21 13:15 05/24/21 17:40 Patient resulted labs reviewed. Assessment/Plan Assessment and Plan Assess & Plan/Chief Complaint Assessment: Shock due to hypovolemia from retroperitoneal hematoma from anticoagulation due to COVID-19 hypercoagulable state moved to ICU Severe metabolic acidosis Severe anemia from acute blood loss from retroperitoneal hematoma receiving transfusions Hyperglycemia from steroids COVID-19 pneumonia Acute hypoxic respiratory failure Severe dementia Hypertension Chronic renal sufficiency Plan: Home O2 eval Close to disposition PT and OT 05/24/2021: Transfer to ICU Updated daughter in depth x2 Aggressive treatment to continue Transfuse Appreciate Dr. Wilkins Appreciate eICU If patient worsens he will need comfort care and will bring in family to be with him at the last stage of his life Severe baseline dementia precludes long-term aggressive care MARIE JIMENEZ DO May 24, 2021 06:39
[2021-05-24] MEDS ORDERED: ceFAZolin INJECTION 500 MG in NS (IVPB) 50 ML IV SCH (06:45)
[2021-05-24] MEDS: ASPIRIN E.C. 81 MG (ECOTRIN) TAB PO SCH (08:42)
[2021-05-24] MEDS: ceFAZolin 2 GM/50 ML (PRE-MIXED) IV SCH (08:42)
[2021-05-24] MEDS: NS IV 1000 ML 1,000 ML IV SCH ×2 (08:42→19:15)
[2021-05-24] MEDS: guaiFENesin (MUCINEX) 600 MG TAB PO SCH ×2 (08:43→21:33)
[2021-05-24] MEDS ORDERED: FUROSEMIDE 40 MG (LASIX) TAB PO SCH (09:00)
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
[2021-05-24 10:51] LABS: ABG BASE EXCESS -18.1 MMOL/L (-2.5-2.5); ABG OXYGEN SATURATION 96 % (94-100); ABG PO2 90 MMHG (79-93); ABG TCO2 8.6 MMOL/L (21.0-31.0)
[2021-05-24 10:54] LABS: ABG PCO2 18 MMHG (35-45); ABG PH 7.27 (7.37-7.43)
[2021-05-24 10:55] LABS: ALLENS TEST YES-POS; INSPIRED O2 ROOM AIR; PATIENT TEMP 95.4; VENTILATOR NO
[2021-05-24] MEDS ORDERED: POTASSIUM CL 10MEQ/50ML IVPB 50 ML IV SCH (11:00)
[2021-05-24] MEDS ORDERED: NS IV 1000 ML 1,000 ML IV SCH (11:00)
--- NOTE | 2021-05-24 11:12 | Physical Therapy Progress Note ---
Therapy Progress Note Patient on hold secondary to current pulmonary/medical status. PT will reassess in GUSTAVO Camarillo PT May 24, 2021 11:12
[2021-05-24] MEDS: POTASSIUM CL 10MEQ/50ML IVPB 50 ML IV SCH ×4 (11:55→21:34)
[2021-05-24] MEDS: fentaNYL INJ 100 MCG/2 ML AMP IVP PRN ×3 (12:22→18:02)
[2021-05-24] MEDS: D5 1/2 NS 1000 ML IV SOLUTION 1,000 ML IV SCH (12:54)
--- NOTE | 2021-05-24 13:24 | Physical Therapy Progress Note ---
Therapy Progress Note PT to dismiss patient from services secondary to decline in status and transfer to ICU. Physician aware. GUSTAVO MIRELES PT May 24, 2021 13:24
--- NOTE | 2021-05-24 13:42 | Diagnostic Imaging Report ---
Indication: History of COVID Pneumonia. COMPARISON: 05/20/2021 FINDINGS: Single frontal radiograph view the chest was obtained and shows normal cardiac silhouette and pulmonary vasculature. Lungs continue to show scattered coarse interstitial infiltrate. There has been interval improved aeration left base when compared to prior exam. No large effusion or pneumothorax is seen. Left-sided AICD is noted. Right upper extremity PICC line is also present, tip of which terminates just below the cavoatrial junction. Osseous structures show no gross acute abnormalities. IMPRESSION: 1. Persistent, but improved bilateral interstitial infiltrate. Dictated by: Dictated on workstation # [id number]
[2021-05-24 13:45] LABS: CREATININE SERUM 2.54 MG/DL (0.60-1.30); POTASSIUM 5.6 MMOL/L (3.6-5.0)
--- NOTE | 2021-05-24 14:21 | Occ Therapy Progress Note ---
Therapy Progress Note Pt. transferred to ICU due to change in medical status. Will need new orders to continue treatment. 1420 LAUREL FONTENOT OT May 24, 2021 14:21
--- NOTE | 2021-05-24 14:42 | Tele-ICU Progress Note ---
Subjective Date Seen by a Provider: May 24, 2021 Time Seen by a Provider: 14:42 Sepsis Event Evaluation Height, Weight, BMI Height: 6'0.00" Weight: 168lbs. 0.0oz. 76.473916nq; 29.48 BMI Method:Stated Focused Exam Lactate Level 05/24/21 10:45: Lactic Acid Level 11.18*H 05/24/21 13:15: Lactic Acid Level 8.95*H Lactic Acid Level Laboratory Tests Test 05/24/21 10:45 05/24/21 13:15 Lactic Acid Level 11.18 MMOL/L (0.50-2.00) *H 8.95 MMOL/L (0.50-2.00) *H Exam Exam Patient acknowledged, consented, and participated in this virtual visit which was conducted using real time audio/video Vital Signs Date Time Temp Pulse Resp B/P (MAP) Pulse Ox O2 Delivery O2 Flow Rate FiO2 05/24/21 11:05 35.6 74 22 106/57 (73) 98 Room Air 05/24/21 10:45 Room Air 05/24/21 09:00 Room Air 05/24/21 08:20 36.0 76 28 102/70 (81) 99 Room Air 05/24/21 07:04 98 Room Air 0.00 05/24/21 03:56 35.0 74 20 128/62 (84) 99 Room Air 05/24/21 02:18 95 Room Air 05/23/21 23:35 35.9 47 20 110/60 (77) 99 Room Air 05/23/21 21:56 95 Room Air 05/23/21 21:00 Room Air 05/23/21 19:07 36.0 55 20 115/61 (79) 97 Room Air 05/23/21 18:21 97 Room Air 05/23/21 15:59 95 Room Air 05/23/21 15:41 36.5 52 18 120/73 (89) 98 Room Air I & O 05/24/21 07:00 Intake Total 1010 ml Balance 1010 ml Height & Weight Height: 6'0.00" Weight: 168lbs. 0.0oz. 76.823177qg; 29.48 BMI Method:Stated General Appearance: No Apparent Distress, WD/WN, Chronically ill, Mild Distress HEENT: PERRL/EOMI Respiratory: Lungs Clear, Decreased Breath Sounds Cardiovascular: Regular Rate, Rhythm, No Edema Capillary Refill: Less Than 3 Seconds Gastrointestinal: normal bowel sounds, non tender, soft Extremity: Normal Capillary Refill, No Pedal Edema Neurologic/Psychiatric: Alert, Disoriented Results Lab Laboratory Tests 05/23/21 04:25 05/24/21 05:30 05/24/21 13:15 Assessment/Plan Assessment/Plan (Tele-ICU Physician , Progress Note ) Available chart/ vitals / labs / Images reviewed Video assessment done using teleICU camera, rest of exam as per RN Discussed with RN Events overnight : Afebrile hemodynamically stable, no pressors, I/O = not recorded Drips: insulin As per RN exam : severe abd pain , diffuse tenderness Consultants: Hospital course: 05/20 - admitted with Covid 05/23 - transferred to ICU with severe acidosis, abd pain A/P Abd pain with wlwv lactate - stat CT abd /pelv ordered NADINE with elev K - cont hyration , follow - CT abd to r/o obstruction , UA , might need lam - await ct Severe metabolic lactic acidosis - with tender distended abdomen will do noncontrast scan to r/o ischemia suspected DKA , DM , dexametasone - Insulin gtt as per protocol started prior to transfer , will repeat ua and check for ketones - follow ua COVID-19 pneumonia - dexametasone started 05/20 - received 4 days - patient is on RA - will stop - on lovenox full dose since 05/20 - US LE neg for DVT 05/20 - with anemia will do SCD , change to proph dose tomorrow if stable Anemia - no sourse of bleeding , check CT abd - follow Hb at 18.00 - monitor , PPI ( on steroids ) Acute hypoxic respiratory failure - resolved Suspected PNA on admission - abx started 05/20 - done - will check PCT - MIGHT NEED NEW ABX - ? sourse Severe dementia Lines : right PICC (Central Line Necessity Reviewed) Lam: will place 05/24 OG: Nutrition: NPO now Analgesia: Anxiety/ delirium na VTE Prophylaxis: SCD Stress Ulcer Prophylaxis: PPI Glycemic Control: insulin gtt Plans in collaboration with bedside consultants and IM MDs. Discussed with RN to reach out if any questions or concerns A total of 30 minutes of critical care time was devoted to this patient today, required to treat and/or prevent further deterioration of critical care condition ( as above ) . ANGELICA GONZALEZ MD May 24, 2021 14:42
[2021-05-24] MEDS: PANTOPRAZOLE 40 MG (PROTONIX) VIAL IV SCH (15:18)
[2021-05-24 15:28] LABS: BILIRUBIN,URINE NEGATIVE (NEGATIVE); CLARITY,URINE CLEAR; COLOR,URINE YELLOW; GLUCOSE, URINE (UA) NEGATIVE (NEGATIVE); KETONES,URINE NEGATIVE (NEGATIVE); LEUKOCYTE ESTERASE ,URINE 1+ (NEGATIVE); NITRITE,URINE NEGATIVE (NEGATIVE); PH,URINE 5.5 (5-9); PROTEIN,URINE 1+ (NEGATIVE)
[2021-05-24 15:37] LABS: AMORPHOUS SEDIMENT,UR MOD AMOR URATES /LPF; BACTERIA,URINE MODERATE /HPF
--- NOTE | 2021-05-24 16:21 | Diagnostic Imaging Report ---
PROCEDURE: CT abdomen and pelvis without contrast. TECHNIQUE: Multiple contiguous axial images were obtained through the abdomen and pelvis without the use of intravenous contrast. Auto Exposure Controls were utilized during the CT exam to meet ALARA standards for radiation dose reduction. INDICATION: Abdominal pain. Positive for Covid. There is bibasilar atelectasis with small bilateral effusions. There is motion artifact projected over the upper abdomen which may obscure subtle abnormalities. The liver, gallbladder and bile ducts appear normal. There are granulomatous calcifications in the spleen. Pancreas and adrenals are normal. There is bilateral cortical thinning of the kidneys. No hydronephrosis of either kidney is seen. There is a Yepez catheter in a decompressed bladder. There is heterogeneous fluid collection involving the left psoas muscle extending into the retroperitoneal space inferior to the left pararenal space which is most likely a hematoma. There is no air in this to suggest an abscess. This measures approximately 7 x 9 x 9 cm. No intrinsic involvement of the left iliacus muscle is seen. The iliopsoas muscles on the right are intact with no hemorrhage. There is no free intraperitoneal air. No acute bowel abnormality is seen. There are degenerative changes of the lower lumbar spine with no acute bony abnormality. IMPRESSION: There is induration and mass effect involving the left psoas muscle and adjacent retroperitoneal space which is most likely secondary to a hemorrhage. Dictated by: Dictated on workstation # [id number]
[2021-05-24 17:09] LABS: ABG BASE EXCESS -19.2 MMOL/L (-2.5-2.5); ABG OXYGEN SATURATION 95 % (94-100); ABG PCO2 21 MMHG (35-45); ABG PO2 89 MMHG (79-93); ABG TCO2 8.6 MMOL/L (21.0-31.0); ALLENS TEST YES-POS; INSPIRED O2 2L
[2021-05-24 17:10] LABS: PATIENT TEMP 95.3; VENTILATOR NO
[2021-05-24 17:12] LABS: ABG PH 7.18 (7.37-7.43)
[2021-05-24] MEDS: SODIUM BICARBONATE 8.4% VIAL 150 MEQ in D5W 1000 ML IV SOLUTION 1,000 ML IV SCH (17:56)
[2021-05-24 17:59] LABS: MEAN CORPUSCULAR HEMOGLOBIN 33 pg (25-34); MEAN CORPUSCULAR HGB CONC 31 g/dL (32-36); MEAN CORPUSCULAR VOLUME 106 fL (80-99); MEAN PLATELET VOLUME 13.3 fL (9.0-12.2); PLATELET COUNT 110 10^3/uL (130-400); WHITE BLOOD COUNT 25.1 10^3/uL (4.3-11.0)
[2021-05-24 18:03] LABS: HEMATOCRIT 20 % (40-54); HEMOGLOBIN 6.3 g/dL (13.3-17.7)
[2021-05-24] MEDS ORDERED: NS IV 500 ML 500 ML IV SCH ×2 (18:15)
[2021-05-24] MEDS ORDERED: ACETAMINOPHEN 325 MG TABLET PO PRN (18:15)
[2021-05-24 18:17] LABS: POTASSIUM 5.2 MMOL/L (3.6-5.0)
[2021-05-24 18:18] LABS: CALCIUM 6.8 MG/DL (8.5-10.1)
[2021-05-24 18:23] LABS: CREATININE SERUM 2.71 MG/DL (0.60-1.30)
[2021-05-24 18:30] LABS: FIBRIN DEGRADATION PRODUCTS 0.5 UG/ML (0.00-0.49)
[2021-05-24] MEDS: 1/2 NS IV SOLUTION 1,000 ML IV SCH ×3 (19:30→23:00)
[2021-05-24] MEDS: SODIUM BICARB 8.4% 50 MEQ/50 ML VIAL IV SCH ×2 (20:00→21:00)
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
[2021-05-25] VITALS (16 sets, daily range): BP systolic 87–134; BP diastolic 57–91
[2021-05-25 01:04] LABS: POTASSIUM 5.2 MMOL/L (3.6-5.0)
[2021-05-25 01:06] LABS: CALCIUM 7.1 MG/DL (8.5-10.1)
[2021-05-25] MEDS: fentaNYL INJ 100 MCG/2 ML AMP IVP PRN ×3 (01:09→07:42)
[2021-05-25 01:10] LABS: CREATININE SERUM 2.85 MG/DL (0.60-1.30)
[2021-05-25] MEDS: SODIUM BICARB 8.4% 50 MEQ/50 ML VIAL IV SCH (01:18)
[2021-05-25] MEDS: ceFAZolin 2 GM/50 ML (PRE-MIXED) IV SCH ×2 (01:18→07:51)
[2021-05-25] MEDS: 1/2 NS IV SOLUTION 1,000 ML IV SCH ×4 (01:20→11:14)
[2021-05-25] MEDS: RT-ALBUTEROL INHALER HFA (VENTOLIN HFA) 18 GM IH SCH ×2 (01:41→07:26)
[2021-05-25 02:38] LABS: BASOPHILS # (AUTO) 0.1 10^3/uL (0.0-0.1); BASOPHILS % (AUTO) 0 % (0-10); EOSINOPHILS % (AUTO) 0 % (0-10); HEMATOCRIT 23 % (40-54); HEMOGLOBIN 7.3 g/dL (13.3-17.7); LYMPHOCYTES # (AUTO) 2.8 10^3/uL (1.0-4.0); LYMPHOCYTES % (AUTO) 11 % (12-44); MEAN CORPUSCULAR HEMOGLOBIN 32 pg (25-34); MEAN CORPUSCULAR HGB CONC 32 g/dL (32-36); MEAN CORPUSCULAR VOLUME 98 fL (80-99); MEAN PLATELET VOLUME 13.2 fL (9.0-12.2); MONOCYTES # (AUTO) 2.9 10^3/uL (0.0-1.0); MONOCYTES % (AUTO) 11 % (0-12); NEUTROPHILS # (AUTO) 18.1 10^3/uL (1.8-7.8); NEUTROPHILS % (AUTO) 72 % (42-75); PLATELET COUNT 80 10^3/uL (130-400); WHITE BLOOD COUNT 25.3 10^3/uL (4.3-11.0)
[2021-05-25 03:27] LABS: ABG OXYGEN SATURATION 29 % (94-100); ABG PCO2 33 MMHG (35-45)
[2021-05-25 03:28] LABS: ABG PH 7.25 (7.37-7.43); ABG PO2 24 MMHG (79-93)
[2021-05-25 03:29] LABS: ALLENS TEST YES-POS; INSPIRED O2 NOT INDICATED; PATIENT TEMP 36.5; VENTILATOR NO
--- NOTE | 2021-05-25 06:36 | Progress Note - Hospitalist ---
Subjective HPI/CC On Admission Date Seen by Provider: May 25, 2021 Focused Exam Lactate Level 05/25/21 05:35: Lactic Acid Level 4.97*H 05/25/21 07:50: Lactic Acid Level 4.90*H 05/25/21 09:30: Lactic Acid Level 4.36*H Lactic Acid Level Laboratory Tests Test 05/25/21 09:30 Lactic Acid Level 4.36 MMOL/L (0.50-2.00) *H Objective Exam Vital Signs Vital Signs Date Time Temp Pulse Resp B/P (MAP) Pulse Ox O2 Delivery O2 Flow Rate FiO2 05/25/21 11:00 84 26 113/71 (85) 95 Nasal Cannula 3.00 05/25/21 03:51 35.7 05/20/21 08:11 32 Capillary Refill : Less Than 3 Seconds Results/Procedures Lab Laboratory Tests 05/24/21 13:15 05/24/21 17:40 05/25/21 00:46 05/25/21 02:25 05/25/21 11:05 Patient resulted labs reviewed. Assessment/Plan Assessment and Plan Assess & Plan/Chief Complaint Assessment: Shock due to hypovolemia from retroperitoneal hematoma from anticoagulation due to COVID-19 hypercoagulable state moved to ICU Severe metabolic acidosis Severe anemia from acute blood loss from retroperitoneal hematoma receiving transfusions Hyperglycemia from steroids COVID-19 pneumonia Acute hypoxic respiratory failure Severe dementia Hypertension Chronic renal sufficiency Plan: Home O2 eval Close to disposition PT and OT 05/24/2021: Transfer to ICU Updated daughter in depth x2 Aggressive treatment to continue Transfuse Appreciate Dr. Wilkins Appreciate eICU If patient worsens he will need comfort care and will bring in family to be with him at the last stage of his life Severe baseline dementia precludes long-term aggressive care MARIE JIMENEZ DO May 25, 2021 06:36
[2021-05-25] MEDS: PANTOPRAZOLE 40 MG (PROTONIX) VIAL IV SCH (08:43)
[2021-05-25] MEDS: guaiFENesin (MUCINEX) 600 MG TAB PO SCH (08:43)
[2021-05-25] MEDS: ASPIRIN E.C. 81 MG (ECOTRIN) TAB PO SCH (08:44)
[2021-05-25] MEDS: NS IV 1000 ML 1,000 ML IV SCH (08:44)
[2021-05-25] MEDS ORDERED: CALCITRIOL 0.25 MCG (ROCALTROL) CAPSULE PO SCH (09:00)
[2021-05-25] MEDS: LORazepam INJ 2 MG/ML (ATIVAN) VIAL IVP PRN ×4 (09:29→14:49)
[2021-05-25] MEDS: D5 1/2 NS 1000 ML IV SOLUTION 1,000 ML IV SCH ×2 (09:30→14:33)
[2021-05-25] MEDS: SODIUM BICARBONATE 8.4% VIAL 150 MEQ in D5W 1000 ML IV SOLUTION 1,000 ML IV SCH (09:41)
--- NOTE | 2021-05-25 10:26 | Tele-ICU Progress Note ---
Subjective Date Seen by a Provider: May 25, 2021 Time Seen by a Provider: 10:25 Sepsis Event Evaluation Height, Weight, BMI Height: 6'0.00" Weight: 168lbs. 0.0oz. [id number]; 29.48 BMI Method:Stated Focused Exam Lactate Level 05/25/21 05:35: Lactic Acid Level 4.97*H 05/25/21 07:50: Lactic Acid Level 4.90*H 05/25/21 09:30: Lactic Acid Level 4.36*H Lactic Acid Level Laboratory Tests Test 05/25/21 07:50 05/25/21 09:30 Lactic Acid Level 4.90 MMOL/L (0.50-2.00) *H 4.36 MMOL/L (0.50-2.00) *H Exam Exam Patient acknowledged, consented, and participated in this virtual visit which was conducted using real time audio/video Vital Signs Date Time Temp Pulse Resp B/P (MAP) Pulse Ox O2 Delivery O2 Flow Rate FiO2 05/25/21 10:00 71 13 87/57 (67) 96 Nasal Cannula 3.00 05/25/21 09:00 86 22 107/86 (93) 92 Nasal Cannula 3.00 05/25/21 08:00 73 12 110/73 (85) 94 Nasal Cannula 3.00 05/25/21 07:26 93 3.00 05/25/21 07:00 75 16 129/74 (92) 92 Nasal Cannula 3.00 05/25/21 06:41 77 05/25/21 06:00 74 16 134/91 (105) 91 Nasal Cannula 3.00 05/25/21 05:15 76 16 123/74 (90) 92 Nasal Cannula 3.00 05/25/21 04:00 87 34 106/69 (81) 91 Nasal Cannula 3.00 05/25/21 04:00 Nasal Cannula 3.00 05/25/21 03:51 35.7 05/25/21 03:00 73 25 117/72 (87) 94 Nasal Cannula 3.00 05/25/21 02:00 73 16 108/75 (86) 94 Nasal Cannula 3.00 05/25/21 01:42 95 Nasal Cannula 1.50 05/25/21 01:12 73 12 101/74 (83) 95 Nasal Cannula 3.00 05/25/21 01:00 81 05/25/21 00:00 Nasal Cannula 3.00 05/25/21 00:00 67 24 97/65 (76) 95 Nasal Cannula 3.00 05/24/21 23:57 36.7 77 20 120/76 94 Nasal Cannula 3.00 05/24/21 23:00 71 20 111/99 (103) 96 Nasal Cannula 3.00 05/24/21 22:00 72 21 125/103 (110) 95 Nasal Cannula 3.00 05/24/21 21:26 36.7 78 20 122/90 92 Nasal Cannula 3.00 05/24/21 21:09 93 Room Air 05/24/21 21:04 73 22 103/76 (85) 96 Nasal Cannula 3.00 05/24/21 20:47 36.8 75 19 108/80 96 Mechanical Ventilator 3.00 05/24/21 20:00 Nasal Cannula 3.00 05/24/21 20:00 80 19 68/61 (63) 96 Nasal Cannula 3.00 05/24/21 19:55 80 20 96 Nasal Cannula 3.00 05/24/21 19:00 79 17 98/66 (77) 89 Room Air 05/24/21 19:00 36.8 05/24/21 19:00 82 05/24/21 18:28 94 Room Air 05/24/21 18:00 84 24 105/73 (84) Room Air 05/24/21 16:51 Room Air 05/24/21 16:00 96 05/24/21 15:00 74 21 103/66 (78) 85 Room Air 05/24/21 14:43 93 Room Air 05/24/21 14:00 76 38 115/63 (80) 93 Room Air 05/24/21 13:00 72 17 99/77 (84) 91 Room Air 05/24/21 12:30 81 26 130/72 (91) 92 Room Air 05/24/21 12:00 Room Air 05/24/21 11:05 35.6 74 22 106/57 (73) 98 Room Air 05/24/21 10:45 Room Air I & O 05/25/21 07:00 Intake Total 1500 ml Output Total 410 ml Balance 1090 ml Height & Weight Height: 6'0.00" Weight: 168lbs. 0.0oz. 76.277673qc; 29.48 BMI Method:Stated General Appearance: Chronically ill, Mild Distress, Thin, Other (pale, fatigued, confused, lethargic, ashen, walker) HEENT: PERRL/EOMI Respiratory: Accessory Muscle Use, Decreased Breath Sounds Cardiovascular: Tachycardia Capillary Refill: Less Than 3 Seconds Gastrointestinal: tenderness (abdomen is soft except in the llq, firm to palpation and extreme tenderness, bruising present in LLQ and laterally) Extremity: Normal Capillary Refill, No Pedal Edema Neurologic/Psychiatric: Alert, Disoriented Skin: Cool, Damp Results Lab Laboratory Tests 05/24/21 05:30 05/24/21 13:15 05/24/21 17:40 05/25/21 00:46 05/25/21 02:25 Assessment/Plan Assessment/Plan (Tele-ICU Physician , Progress Note ) Available chart/ vitals / labs / Images reviewed Video assessment done using teleICU camera, rest of exam as per RN Discussed with RN Events overnight : transfused 1 u Afebrile hemodynamically stable, no pressors, I/O = pos 1600 Drips: insulin As per RN exam : severe abd pain , diffuse tenderness , confusion , mild agitation , wheezing Consultants: Hospital course: 05/20 - admitted with Covid 05/23 - transferred to ICU with severe acidosis, abd pain 05/23 - CT abd/pelvis - LEFT psoas muscle hematoma + RPH , No acute bowel abnormality is seen- transfused 1 u prbc A/P Abd pain with wlwv lactate - 05/23 - CT abd/pelvis - LEFT psoas muscle hematoma + RPH , No acute bowel abnormality is seen- LOVENOX stopped - seen by Sx NADINE with elev K - cont hyration , follow - CT abd to r/o obstruction , UA , lam is in - ologuric - will decrease IVF with developing pulm edema /VO Severe metabolic lactic acidosis -no signs of marked tissue hypoperfusion , hypoxia , no ischemia seen on CT abdomen too -? Type B lactic acidosis with DKA - but no ketones and BS is not severely elevated . - medication list reviewed - no offending drugs to induce LA - was not on metformin, epinephrin , nebs , linezolid, propofol ect -on bicarb gtt suspected DKA , DM , dexametasone - Insulin gtt as per protocol started prior to transfer , will repeat ua and check for ketones COVID-19 pneumonia - dexametasone started 05/20 - received 4 days - patient is on RA - will stop - on lovenox full dose since 05/20 - US LE neg for DVT 05/20 - with anemia will do SCD , change to proph dose tomorrow if stable Anemia -LEFT psoas muscle hematoma + RPH - follow Hb , transfused 1 u prbc on 05/24 - monitor , PPI ( on steroids ) Acute hypoxic respiratory failure - resolved - > now needs O2 with volume overload most likely Suspected PNA on admission - abx started 05/20 - done - will check PCT - MIGHT NEED NEW ABX - ? sourse Severe dementia Lines : right PICC (Central Line Necessity Reviewed) Lam: will place 05/24 OG: Nutrition: NPO now Analgesia: Anxiety/ delirium na VTE Prophylaxis: SCD Stress Ulcer Prophylaxis: PPI Glycemic Control: insulin gtt Plans in collaboration with bedside consultants and IM MDs. Discussed with RN to reach out if any questions or concerns A total of 30 minutes of critical care time was devoted to this patient today, required to treat and/or prevent further deterioration of critical care condition ( as above ) . ANGELICA GONZALEZ MD May 25, 2021 10:26
[2021-05-25 11:27] LABS: MEAN PLATELET VOLUME 12.6 fL (9.0-12.2); WHITE BLOOD COUNT 22.2 10^3/uL (4.3-11.0)
[2021-05-25 11:34] LABS: HEMOGLOBIN 6.5 g/dL (13.3-17.7)
[2021-05-25 11:42] LABS: CALCIUM 6.6 MG/DL (8.5-10.1); CREATININE SERUM 2.68 MG/DL (0.60-1.30); POTASSIUM 4.2 MMOL/L (3.6-5.0)
[2021-05-25] MEDS ORDERED: LORA2ORA PO (12:06)
[2021-05-25] MEDS ORDERED: MORP100S3 PO (12:06)
--- NOTE | 2021-05-25 12:07 | Discharge Summary ---
Discharge Summary Hospital Course Was the Problem List Reviewed?: Yes Problems/Dx: (1) Pneumonia due to COVID-19 virus Status: Acute (2) Retroperitoneal hematoma (3) Acute blood loss anemia (4) Transfusion of blood during current hospitalisation (5) Advanced age (6) Dementia (7) Metabolic acidosis (8) Hypovolemic shock (9) Acute respiratory failure due to COVID-19 Status: Acute Hospital Course Date of Admission: May 19, 2021 at 23:05 Admission Diagnosis : Family Physician/Provider: [place] Date of Discharge: 05/25/21 Discharge Diagnosis: COVID-19 pneumonia, retroperitoneal hematoma, hypovolemic shock, severe dementia at baseline, encephalopathy, metabolic acidosis Hospital Course: Hospital course: Pt had a complex hospital course for seven days, he was admitted fro Covid-19 pneumonia, he was not vaccinated. Baseline dementia precluded anything but a poor prognosis. He had improved but on Sunday morning had labored breathing, became acidotic, back pain resulted in imaging scan revealing retro-perineal hematoma with loss of a great deal of blood, he was in hypovalemic shock, he was placed in the ICU but due to baseline dementia and chronic kidney disease of 2.7, he was deemed not a dialysis candidate and not stable enough to undergo surgery and after conferring with multiple physicians and reviewing labs and his response overnight the decision was made to place him in comfort care, he was discharged on hospice so his family could be with him. Labs and Pending Lab Test: Laboratory Tests 05/24/21 13:06: Glucometer 165H 05/24/21 13:15: Sodium Level 136, Potassium Level 5.6H, Chloride Level 113H, Carbon Dioxide Level 12L, Anion Gap 11, Blood Urea Nitrogen 43H, Creatinine 2.54H, Estimat Glomerular Filtration Rate 24, BUN/Creatinine Ratio 17, Glucose Level 188H, Lactic Acid Level 8.95*H, Calcium Level 7.0L 05/24/21 14:07: Glucometer 165H 05/24/21 14:10: Glucometer 175H 05/24/21 14:56: Glucometer 182H 05/24/21 15:00: Urine Color YELLOW, Urine Clarity CLEAR, Urine pH 5.5, Urine Specific Barre 1.025H, Urine Protein 1+H, Urine Glucose (UA) NEGATIVE, Urine Ketones NEGATIVE, Urine Nitrite NEGATIVE, Urine Bilirubin NEGATIVE, Urine Urobilinogen 1.0, Urine Leukocyte Esterase 1+H, Urine RBC (Auto) 2+H, Urine RBC 5-10H, Urine WBC 10-25H, Urine Crystals PRESENTH, Urine Amorphous Sediment MOD ARI URATESH, Urine Bacteria MODERATEH, Urine Casts NONE, Urine Mucus NEGATIVE, Urine Culture Indicated YES 05/24/21 16:08: Lactic Acid Level 11.87*H 05/24/21 16:12: Glucometer 200H 05/24/21 16:27: Blood Gas Puncture Site RB, Blood Gas Patient Temperature 95.3, Arterial Blood pH 7.18*L, Arterial Blood Partial Pressure CO2 21L, Arterial Blood Partial Pressure O2 89, Arterial Blood HCO3 8*L, Arterial Blood Total CO2 8.6L, Arterial Blood Oxygen Saturation 95, Arterial Blood Base Excess -19.2L, Chandu Test YES- POS, Blood Gas Ventilator Setting NO, Blood Gas Inspired Oxygen 2L 05/24/21 17:23: Glucometer 156H 05/24/21 17:40: White Blood Count 25.1H, Red Blood Count 1.92L, Hemoglobin 6.3#*L, Hematocrit 20*L, Mean Corpuscular Volume 106H, Mean Corpuscular Hemoglobin 33, Mean Cor puscular Hemoglobin Concent 31L, Red Cell Distribution Width 14.3, Platelet Count 110L, Mean Platelet Volume 13.3H, Fibrinogen 180L, D-Dimer 0.50H, Sodium Level 139, Potassium Level 5.2H, Chloride Level 113H, Carbon Dioxide Level 9*L, Anion Gap 17H, Blood Urea Nitrogen 46H, Creatinine 2.71H, Estimat Glomerular Filtration Rate 23, BUN/Creatinine Ratio 17, Glucose Level 208H, Lactic Acid Level 11.70*H, Calcium Level 6.8L, Procalcitonin 0.25H 05/24/21 18:53: Glucometer 198H 05/24/21 19:52: Glucometer 197H 05/24/21 20:25: Glucometer 188H 05/24/21 20:59: Glucometer 217H 05/25/21 00:41: Glucometer 83 05/25/21 00:42: Glucometer 102 05/25/21 00:46: Sodium Level 139, Potassium Level 5.2H, Chloride Level 112H, Carbon Dioxide Level 12L, Anion Gap 15H, Blood Urea Nitrogen 47H, Creatinine 2.85H, Estimat Glomerular Filtration Rate 21, BUN/Creatinine Ratio 16, Glucose Level 91, Lactic Acid Level 7.77*H, Calcium Level 7.1L 05/25/21 02:25: White Blood Count 25.3H, Red Blood Count 2.31L, Hemoglobin 7.3L, Hematocrit 23L, Mean Corpuscular Volume 98, Mean Corpuscular Hemoglobin 32, Mean Corpuscular Hemoglobin Concent 32, Red Cell Distribution Width 15.2H, Platelet Count 80L, Mean Platelet Volume 13.2H, Immature Granulocyte % (Auto) 6, Neutrophils (%) (Auto) 72, Lymphocytes (%) (Auto) 11L, Monocytes (%) (Auto) 11, Eosinophils (%) (Auto) 0, Basophils (%) (Auto) 0, Neutrophils # (Auto) 18.1H, Lymphocytes # (Auto) 2.8, Monocytes # (Auto) 2.9H, Eosinophils # (Auto) 0.0, Basophils # (Auto) 0.1, Immature Granulocyte # (Auto) 1.5H 05/25/21 02:28: Glucometer 136H 05/25/21 03:16: Blood Gas Puncture Site RIGHT RADIAL, Blood Gas Patient Temperature 36.5, Arterial Blood pH 7.25*L, Arterial Blood Partial Pressure CO2 33L, Arterial Blood Partial Pressure O2 24*L, Arterial Blood HCO3 14*L, Arterial Blood Total CO2 15.0L, Arterial Blood Oxygen Saturation 29L, Arterial Blood Base Excess - 12.0L, Chandu Test YES-POS, Blood Gas Ventilator Setting NO, Blood Gas Inspired Oxygen NOT INDICATED 05/25/21 03:54: Glucometer 172H 05/25/21 05:33: Glucometer 208H 05/25/21 05:35: Lactic Acid Level 4.97*H 05/25/21 06:50: Glucometer 191H 05/25/21 07:50: Lactic Acid Level 4.90*H 05/25/21 08:38: Glucometer 183H 05/25/21 09:30: Lactic Acid Level 4.36*H 05/25/21 09:40: Glucometer 188H 05/25/21 11:05: Glucometer 186H, White Blood Count 22.2H, Red Blood Count 2.09L, Hemoglobin 6.5*L, Hematocrit 20*L, Mean Corpuscular Volume 96, Mean Corpuscular Hemoglobin 31, Mean Corpuscular Hemoglobin Concent 33, Red Cell Distribution Width 15.9H, Platelet Count 81L, Mean Platelet Volume 12.6H, Percent Immature Platelet Fraction 18.3H, Sodium Level 135, Potassium Level 4.2, Chloride Level 109H, Carbon Dioxide Level 17L, Anion Gap 9, Blood Urea Nitrogen 46H, Creatinine 2.68H , Estimat Glomerular Filtration Rate 23, BUN/Creatinine Ratio 17, Glucose Level 187H, Calcium Level 6.6L Microbiology 05/19/21 Urine Culture - Final, Complete Staphylococcus aureus 05/19/21 Blood Culture - Final, Complete No growth Home Meds Active Lorazepam Intensol (Lorazepam) 2 Mg/1 Ml Oral.conc 2 Mg PO Q2H PRN Morphine Conc. 20mg/ml (Morphine Sulfate) 100 Mg/5 Ml Solution 5 Mg PO Q2H PRN Reported Aspirin EC (Aspirin) 81 Mg Tablet.dr 81 Mg PO DAILY Tylenol Extra Strength (Acetaminophen) 500 Mg Tablet 1,000 Mg PO Q8H PRN Mucinex (Guaifenesin) 600 Mg Tab.er.12h 600 Mg PO BID Carvedilol 3.125 Mg Tablet 3.125 Mg PO BID Furosemide 40 Mg Tablet 40 Mg PO DAILY Calcitriol 0.25 Mcg Capsule 0.25 Mcg PO SUN,WE,FR Assessment/Pt Instructions Hospice enrollment Discharge Planning: <30 minutes discharge planning Discharge Physical Examination Vital Signs Vital Signs Date Time Temp Pulse Resp B/P (MAP) Pulse Ox O2 Delivery O2 Flow Rate FiO2 05/25/21 11:00 84 26 113/71 (85) 95 Nasal Cannula 3.00 05/25/21 03:51 35.7 05/20/21 08:11 32 General Appearance: Chronically ill Allergies: Coded Allergies: NKANo Known Allergies (Unverified Allergy, Mild, 02/11/10) Discharge Summary Date of Admission May 19, 2021 at 23:05 Date of Discharge Discharge Date: May 25, 2021 Discharge Diagnosis Assessment: Shock due to hypovolemia from retroperitoneal hematoma from anticoagulation due to COVID-19 hypercoagulable state moved to ICU Severe metabolic acidosis Severe anemia from acute blood loss from retroperitoneal hematoma receiving transfusions Hyperglycemia from steroids COVID-19 pneumonia Acute hypoxic respiratory failure Severe dementia Hypertension Chronic renal sufficiency Plan: Home O2 eval Close to disposition PT and OT 05/24/2021: Transfer to ICU Updated daughter in depth x2 Aggressive treatment to continue Transfuse Appreciate Dr. Wilkins Appreciate eICU If patient worsens he will need comfort care and will bring in family to be with him at the last stage of his life Severe baseline dementia precludes long-term aggressive care MARIE JIMENEZ DO May 25, 2021 12:07
== END 2021-05-25 15:40 | disposition hospice, home (50) | DRG 177 ==
LOC: EDUNIT# 21:00 → ER 21:03 → ICU 23:05 → 4TH 05-22 11:19 → ICU 05-24 13:58
PROVIDERS: ADMIT Family Medicine; ATTEND Internal Medicine
PROC: XW033E5 Introduction of Remdesivir Anti-infective into Peripheral Vein, Percutaneous Approach, New Technology Group 5 (ICD-10-PCS; principal; 2021-05-24)
PROC: 02HV33Z Insertion of Infusion Device into Superior Vena Cava, Percutaneous Approach (ICD-10-PCS; 2021-05-24)
DX: U07.1 COVID-19 (principal); E11.10 Type 2 diabetes mellitus with ketoacidosis without coma; J12.82 Pneumonia due to coronavirus disease 2019; J96.01 Acute respiratory failure with hypoxia; I21.A1 Myocardial infarction type 2; R57.1 Hypovolemic shock; K66.1 Hemoperitoneum; N17.9 Acute kidney failure, unspecified; N39.0 Urinary tract infection, site not specified; E87.1 Hypo-osmolality and hyponatremia; I13.0 Hypertensive heart and chronic kidney disease with heart failure and stage 1 through stage 4 chronic kidney disease, or unspecified chronic kidney disease; E87.2 Acidosis; D62 Acute posthemorrhagic anemia; D68.32 Hemorrhagic disorder due to extrinsic circulating anticoagulants; D68.59 Other primary thrombophilia; G93.40 Encephalopathy, unspecified; I42.9 Cardiomyopathy, unspecified; N18.9 Chronic kidney disease, unspecified; Z66 Do not resuscitate; Z51.5 Encounter for palliative care; I25.10 Atherosclerotic heart disease of native coronary artery without angina pectoris; E11.22 Type 2 diabetes mellitus with diabetic chronic kidney disease; E87.6 Hypokalemia; I50.9 Heart failure, unspecified; I95.9 Hypotension, unspecified; E86.0 Dehydration; R00.1 Bradycardia, unspecified; F03.90 Unspecified dementia, unspecified severity, without behavioral disturbance, psychotic disturbance, mood disturbance, and anxiety; M19.90 Unspecified osteoarthritis, unspecified site; E87.5 Hyperkalemia; R73.9 Hyperglycemia, unspecified; T38.0X5A Adverse effect of glucocorticoids and synthetic analogues, initial encounter; Z87.891 Personal history of nicotine dependence; Z79.82 Long term (current) use of aspirin; Z79.899 Other long term (current) drug therapy; Z95.5 Presence of coronary angioplasty implant and graft; Z95.810 Presence of automatic (implantable) cardiac defibrillator; I25.2 Old myocardial infarction; Z87.820 Personal history of traumatic brain injury
CPT/HCPCS: 36415; 36569; 36600; 51701; 70450; 71045; 74176; 76937; 80048; 80053; 81000; 82010; 82550; 82553; 82805; 82947; 83036; 83605; 83615; 83735; 83874; 83880; 84100; 84145; 84484; 85007; 85025; 85027; 85379; 85384; 85610; 85652; 85730; 86141; 86850; 86900; 86901; 86920; 87040; 87088; 87186; 87636; 93005; 93041; 93970; 94640; 94664; 94760; 96361; 96374; 96375